=== PATIENT | male | born 1955 | race African-American/Black ===

== ENCOUNTER 2016-05-03 12:18 | Inpatient (IN) | payer OTHER ==
[~2016-05-03] VITALS: Ht 160 cm; Wt 54.4 kg
[2016-05-03] VITALS (8 sets, daily range): BP systolic 94–128; BP diastolic 54–81
--- NOTE | 2016-05-03 12:53 | Emergency Room Report ---
History of Present Illness General Chief Complaint: Altered Level of Consciousness Source: Patient, EMS Present Illness HPI 60 YOM with IDDM presents with hyperglycemia, ?AMS BIBEMS. Accucheck is "HIGH" in ED. Patient denies chest pain, SOB, abd pain, fever/chills, urinary complaints. Allergies: Coded Allergies: No Known Allergies (Unverified , 06/25/14) Patient History Past Medical History: DM Past Surgical History: none Pertinent Family History: none Immunizations: UTD Reviewed Nursing Documentation: PMH: Agreed, PSxH: Agreed Nursing Documentation-PMH Hx Cardiac Problems: No Hx Hypertension: Yes Hx Pacemaker: No Hx Asthma: No Hx COPD: No Hx Diabetes: Yes Hx Cancer: No Hx Gastrointestinal Problems: No Hx Dialysis: No History Of Psychiatric Problem: No Hx Neurological Problems: No Hx Cerebrovascular Accident: Yes Hx Seizures: No Review of Systems All Other Systems: negative except mentioned in HPI Physical Exam Vital Signs Date Time Temp Pulse Resp B/P Pulse Ox O2 Delivery O2 Flow Rate FiO2 05/03/16 12:15 98.1 80 16 73/40 95 Room Air Sp02 EP Interpretation: reviewed, abnormal General Appearance: normal inspection, well appearing, no apparent distress, alert, GCS 15, non-toxic, cachetic Head: normocephalic, atraumatic Eyes: bilateral eye EOMI, bilateral eye PERRL ENT: normal ENT inspection, hearing grossly normal, normal voice Neck: normal inspection, full range of motion, supple, no bony tend Respiratory: normal inspection, chest non-tender, lungs clear, normal breath sounds, no rhonchi, no respiratory distress, no retraction, no accessory muscle use, no wheezing Cardiovascular #1: regular rate, rhythm, no edema Gastrointestinal: normal inspection, normal bowel sounds, non tender, soft, no guarding, no hernia Genitourinary: no CVA tenderness Musculoskeletal: normal inspection, back normal, normal range of motion, Rossy' s Sign negative Neurologic: normal inspection, alert, oriented x3, responsive, pecan picker III-XII nml as tested, speech normal Psychiatric: normal inspection, judgement/insight normal, mood/affect normal Skin: normal inspection, normal color, no rash Procedures Critical Care Time Critical Care Time CC time 40 minutes Care for a 60YOM with AMS, known IDDm Previous admissions for HYPOglycemia DDx includes ACS, infection, metabolic abnormality, toxic ingestion, polysubstance abuse, DKA Patient is oriented, no signs of trauma Comprehensive physical exam completed, atraumatic. Labs include toxicology and chem panel, CBC, EKG 12 lead and constant cardiac rhythm strip monitoring, IV established. Airway adequately maintained by patient upon arrival. EKG reveals NSR without QRS abnormalities. Tx includes Insulin gtt, multiple fluid boluses Physician spent 40 minutes of direct critical care time monitoring patient's respiratory, cardiac and neurological status, reassessment, review of imaging, labs and discussion with attending hospitalist for ICU admission Does not include procedures Medical Decision Making Medicare Attestation I Jessica Pierce MD hereby attest that the medical record entry for date of service, 03/01/16 accurately reflects signatures/notations that I made in my capacity as MD when I treated/diagnosed the above listed Medicare beneficiary. I attest that this information is true, accurate and complete to the best of my knowledge. I understand that any falsification, omission, or concealment of material fact may subject me to administrative, civil, or criminal liability. This patient warrants hospital admission for extreme of age and has a condition that cannot be treated as outpatient. Diagnostic Impression: Primary Impression: Altered level of consciousness Additional Impression: Hyperglycemia ER Course 60 YO M with ?AMS d/t hyperglycemia. VS notable for hypotension. Afebrile. DDx: HONK, DKA, hyperglycemia, sepsis, infection PLAN: IV access, IVF, Labs, possible insulin gtt, possible ICU admission Search for infection with CXR, UA Reassess EKG Diagnostic Results Rate: normal Rhythm: NSR ST Segments: no acute changes Rhythm Strip Diag. Results EP Interpretation: yes Rate: 75 Rhythm: NSR, no PVC's, no ectopy Chest X-Ray Diagnostic Results EP Interpretation: Yes Findings: no consolidation, no effusion, no pneumothorax, no acute cardiopulmonary disease Number of Views: 1 Reevaluation Time: 14:17 Last Vital Signs Date Time Temp Pulse Resp B/P Pulse Ox O2 Delivery O2 Flow Rate FiO2 05/03/16 12:15 98.1 80 16 73/40 95 Room Air Status: improved Reevaluation Impression Glucose: 1109, K 5.1, bicarb 15, serum Cre 4.4. AG 34 A: DKA Insulin gtt started in ED Additional fluid boluses given Abx given for empiric infection - unknown source at this time. UA neg for infection Endorsed to Dr Camargo for MICU at 215pm Disposition: ADMITTED INPATIENT Condition: Critical JESSICA PIERCE M.D. May 03, 2016 12:53
[2016-05-03 13:11] LABS: BASOPHILS % (AUTO) 0.3 % (0.0-2.0); LYMPHOCYTES % (AUTO) 10.4 % (20.0-45.0); MEAN CORPUSCULAR HEMOGLOBIN 29.7 PG (27.0-31.0); MEAN CORPUSCULAR HGB CONC 29.5 G/DL (32.0-36.0); MEAN CORPUSCULAR VOLUME 101 FL (80-99); MEAN PLATELET VOLUME 9.6 FL (6.5-10.1); MONOCYTES % (AUTO) 7.8 % (1.0-10.0); NEUTROPHILS % (AUTO) 81.5 % (45.0-75.0); PLATELET COUNT 217 K/UL (150-450); RED BLOOD COUNT 4.75 M/UL (4.70-6.10); RED CELL DISTRIBUTION WIDTH 12.9 % (11.6-14.8); WHITE BLOOD COUNT 16.9 K/UL (4.8-10.8)
[2016-05-03] MEDS ORDERED: Vancomycin 1 GM in NS 275 ML IVPB ONE (13:15)
[2016-05-03] MEDS ORDERED: Piperacillin/Tazobactam 3.375 GM in NS 110 ML IVPB ONE (13:15)
[2016-05-03] MEDS ORDERED: Vancomycin 1gm inj IVPB ONE (13:30)
[2016-05-03] MEDS ORDERED: Zosyn 3.375gm inj ONE (13:31)
[2016-05-03 14:02] LABS: PH,URINE 5 (4.5-8.0)
[2016-05-03 14:06] LABS: NITRITE,URINE NEGATIVE (NEGATIVE); PROTEIN,URINE 1+ (NEGATIVE)
[2016-05-03 14:07] LABS: LEUKOCYTE ESTERASE ,URINE NEGATIVE (NEGATIVE); UROBILINOGEN,URINE NORMAL MG/DL (0.0-1.0)
[2016-05-03 14:09] LABS: APPEARANCE,URINE SLIGHTLY CLOUDY; KETONES,URINE 1+ (NEGATIVE)
[2016-05-03 14:11] LABS: ALANINE AMINOTRANSFERASE 102 U/L (3-41); ALBUMIN/GLOBULIN RATIO 1.2 (1.0-2.7); ANION GAP 34 (5-15); ASPARTATE AMINO TRANSFERASE 75 U/L (5-40); CALCIUM 8.4 mg/dL (8.6-10.2); CARBON DIOXIDE 15 mEQ/L (20-30); CHLORIDE 88 mEQ/L (98-107); CREATININE 4.4 mg/dL (0.7-1.2); GLOMERULAR FILTRATION RATE 16.6 mL/min (>60); HEMOLYSIS 2; MAGNESIUM 2.9 mg/dL (1.7-2.5); POTASSIUM 5.1 mEQ/L (3.4-4.9); SODIUM 137 mEQ/L (135-145); TOTAL PROTEIN 6.6 g/dL (6.6-8.7)
[2016-05-03 14:12] LABS: AMORPHOUS SEDIMENT,UR FEW /LPF; BACTERIA,URINE FEW /HPF; RBC,URINE 0-2 /HPF (0 - 0); SQUAMOUS EPITHELIAL CELL,UR OCCASIONAL /LPF (NONE/OCC); WBC,URINE 0-2 /HPF (0 - 0)
[2016-05-03 14:45] LABS: LIPASE 1230 U/L (< 60)
[2016-05-03] MEDS ORDERED: Lidocaine 1% 10mg/ml/Epi 0.005mg/ml 30ml vial INJ ONE (14:45)
[2016-05-03] MEDS ORDERED: Heparin Sod 1000 units/ml 10ml INJ ONE (14:45)
[2016-05-03] MEDS ORDERED: [UNRECOGNIZED DRUG - REMARK] MISC PRN (15:00)
[2016-05-03] MEDS ORDERED: DuoNeb 0.5-3(2.5)mg/3ml neb HHN PRN (15:00)
[2016-05-03] MEDS ORDERED: Morphine Sulfate 4mg/ml Inj IVP PRN (15:00)
[2016-05-03] MEDS ORDERED: LORazepam Inj 2mg/ml 1ml IV PRN (15:00)
[2016-05-03] MEDS ORDERED: Miralax 17gm pkt ORAL PRN (15:00)
[2016-05-03] MEDS ORDERED: Nitroglycerin Subl 0.4mg tab (Bottle Of 25) SL PRN (15:00)
[2016-05-03 15:25] LABS: ABG ALLEN TEST POSITIVE; ABG BASE EXCESS -13.8; ABG PCO2 42.1 mmHg (35.0-45.0)
[2016-05-03] MEDS ORDERED: Heparin 2000 units/Ns 1000ml IV ONE (16:00)
--- NOTE | 2016-05-03 16:47 | Diagnostic Imaging Report ---
Indication: PAIN, shortness of breath Technique: One view of the chest Comparison: none Findings: Lungs and pleural spaces are clear. Heart size is normal. There are mild degenerative spondylosis changes Impression: No acute process
--- NOTE | 2016-05-03 17:05 | Diagnostic Imaging Report ---
Indications: Needs long-term IV access Technique: Procedure performed at bedside. Ultrasound confirms patent compressible right basilic vein. Total sterile technique, including sterile probe cover and sterile gel, sterile gloves, hand hygiene, hat, mask,, sterile gown, large sterile drape, and preparation with 2% chlorhexidine utilized. Local anesthesia with 1% lidocaine. Under real-time ultrasound guidance, puncture basilic vein using 21-gauge needle, passage 0.018 guidewire, exchange for 5 Nigerian peel-away sheath. 5 Nigerian Bard dual-lumen power PICC cut to 41 cm. It was inserted through the peel-away sheath. Peel-away sheath and guidewire removed. Catheter fixed to the skin. Both catheter ports aspirated and flushed. Patient tolerated procedure well, without immediate complication. Followup chest x-ray obtained, documents catheter tip position at the deep in the right atrium. This will be corrected. Impression: Bedside placement of PICC under sonographic guidance, as described above. Tip too far into the right atrium. This will be corrected and the patient reimaged
[2016-05-03] MEDS: Heparin 5000 units/ml inj SUBQ SCH (21:00)
[2016-05-03] MEDS ORDERED: UNOBMED (23:41)
[2016-05-04] VITALS (24 sets, daily range): BP systolic 104–149; BP diastolic 70–92
[2016-05-04 00:05] LABS: CALCIUM 8.2 mg/dL (8.6-10.2); CREATININE 3.5 mg/dL (0.7-1.2); GLOMERULAR FILTRATION RATE 21.6 mL/min (>60); POTASSIUM 4.3 mEQ/L (3.4-4.9)
[2016-05-04 09:10] LABS: BASOPHILS % (AUTO) 0.8 % (0.0-2.0); LYMPHOCYTES % (AUTO) 11.3 % (20.0-45.0); MEAN CORPUSCULAR VOLUME 94 FL (80-99); MONOCYTES % (AUTO) 7.1 % (1.0-10.0); NEUTROPHILS % (AUTO) 80.8 % (45.0-75.0); PLATELET COUNT 140 K/UL (150-450); RED BLOOD COUNT 3.68 M/UL (4.70-6.10); WHITE BLOOD COUNT 17.8 K/UL (4.8-10.8)
--- NOTE | 2016-05-04 09:12 | History and Physical ---
History of Present Illness General Date patient seen: May 04, 2016 Reason for Hospitalization: Altered Level of Consciousness Present Illness HPI 60 year old male with hx of DM, HTN, CVA, Hep C was taken by paramedics to [facility] for ALOC. His BS was HIGH. Pt was diagnosed to have DKA and hyperosmolar coma and admitted to ICU on insulin drip. Allergies: Coded Allergies: No Known Allergies (Unverified , 06/25/14) Medication History Miscellaneous Medications Unable to Obtain Medications (Unable To Obtain Meds), (Reported) Patient History Healthcare decision maker self Resuscitation status Full Code Advanced Directive on File No Past Medical/Surgical History Past Medical/Surgical History: (1) Diabetes mellitus (2) History of CVA (cerebrovascular accident) (3) Hypertension Review of Systems All Other Systems: negative except mentioned in HPI Physical Exam General Appearance: WD/WN, no apparent distress Lines, tubes and drains: peripheral, central line HEENT: normocephalic, atraumatic Neck: non-tender, normal alignment Respiratory/Chest: chest wall non-tender, lungs clear Cardiovascular/Chest: normal peripheral pulses, normal rate Abdomen: normal bowel sounds, soft Genitourinary/Rectal: normal genital exam, heme negative stool Extremities: normal range of motion Last 24 Hour Vital Signs Date Time Temp Pulse Resp B/P Pulse Ox O2 Delivery O2 Flow Rate FiO2 05/04/16 08:00 98.0 98 22 140/79 98 Room Air 05/04/16 08:00 91 05/04/16 07:00 101 21 122/79 98 Room Air 05/04/16 06:00 103 21 126/83 98 Room Air 05/04/16 05:00 102 21 123/78 98 Room Air 05/04/16 04:00 106 21 121/78 98 Room Air 05/04/16 03:00 104 21 110/73 99 Room Air 05/04/16 02:00 105 21 106/72 99 Room Air 05/04/16 01:00 105 21 108/71 99 Room Air 05/04/16 00:00 98.0 108 22 104/78 100 Room Air 05/04/16 00:00 108 05/03/16 23:43 96.7 100 23 123/73 100 Room Air 05/03/16 22:38 100 23 123/73 100 Room Air 05/03/16 19:03 83 23 128/68 100 Room Air 05/03/16 17:23 96.7 78 26 105/65 100 Room Air 05/03/16 16:44 78 20 108/67 100 Room Air 05/03/16 15:16 92.7 73 19 100/81 100 Room Air 05/03/16 14:26 72 20 100/59 100 Room Air 05/03/16 13:06 97.4 72 16 94/54 98 Room Air 05/03/16 12:15 98.1 80 16 73/40 95 Room Air Intake and Output 05/03/16 05/04/16 19:00 07:00 Intake Total 2569 ml 900 ml Output Total 250 ml 630 ml Balance 2319 ml 270 ml Intake IV Total 2569 ml 900 ml Output Urine Total 250 ml 630 ml Laboratory Tests Test 05/03/16 12:30 05/03/16 12:55 05/03/16 14:53 05/03/16 23:35 Urine Color Yellow Urine Appearance Slightly cloudy Urine pH 5 (4.5-8.0) Urine Specific [place] 1.020 (1.005-1.035) Urine Protein 1+ (NEGATIVE) H Urine Glucose (UA) 4+ (NEGATIVE) H Urine Ketones 1+ (NEGATIVE) H Urine Occult Blood Negative (NEGATIVE) Urine Nitrite Negative (NEGATIVE) Urine Bilirubin Negative (NEGATIVE) Urine Urobilinogen Normal MG/DL (0.0-1.0) Urine Leukocyte Esterase Negative (NEGATIVE) Urine RBC 0-2 /HPF (0 - 0) H Urine WBC 0-2 /HPF (0 - 0) Urine Squamous Epithelial Cells Occasional /LPF Urine Amorphous Sediment Few /LPF (NONE) H Urine Bacteria Few /HPF (NONE) Urine Opiates Screen Negative (NEGATIVE) Urine Barbiturates Screen Negative (NEGATIVE) Phencyclidine (PCP) Screen Negative (NEGATIVE) Urine Amphetamines Screen Negative (NEGATIVE) Urine Benzodiazepines Screen Negative (NEGATIVE) Urine Cocaine Screen Positive (NEGATIVE) H Urine Marijuana (THC) Screen Negative (NEGATIVE) White Blood Count 16.9 K/UL (4.8-10.8) H Red Blood Count 4.75 M/UL (4.70-6.10) Hemoglobin 14.1 G/DL (14.2-18.0) L Hematocrit 47.8 % (42.0-52.0) Mean Corpuscular Volume 101 FL (80-99) H Mean Corpuscular Hemoglobin 29.7 PG (27.0-31.0) Mean Corpuscular Hemoglobin Concent 29.5 G/DL (32.0-36.0) L Red Cell Distribution Width 12.9 % (11.6-14.8) Platelet Count 217 K/UL (150-450) Mean Platelet Volume 9.6 FL (6.5-10.1) Neutrophils (%) (Auto) 81.5 % (45.0-75.0) H Lymphocytes (%) (Auto) 10.4 % (20.0-45.0) L Monocytes (%) (Auto) 7.8 % (1.0-10.0) Eosinophils (%) (Auto) 0.0 % (0.0-3.0) Basophils (%) (Auto) 0.3 % (0.0-2.0) Sodium Level 137 mEQ/L (135-145) 147 mEQ/L (135-145) #H Potassium Level 5.1 mEQ/L (3.4-4.9) H 4.3 mEQ/L (3.4-4.9) Chloride Level 88 mEQ/L (98-107) L 106 mEQ/L (98-107) Carbon Dioxide Level 15 mEQ/L (20-30) L 18 mEQ/L (20-30) L Anion Gap 34 (5-15) H 23 (5-15) H Blood Urea Nitrogen 90 mg/dL (7-23) H 84 mg/dL (7-23) H Creatinine 4.4 mg/dL (0.7-1.2) H 3.5 mg/dL (0.7-1.2) H Estimat Glomerular Filtration Rate 16.6 mL/min (>60) 21.6 mL/min (>60) Glucose Level 1109 mg/dL (74-106) *H 587 mg/dL (74-106) #*H Calcium Level 8.4 mg/dL (8.6-10.2) L 8.2 mg/dL (8.6-10.2) L Magnesium Level 2.9 mg/dL (1.7-2.5) H Total Bilirubin 0.6 mg/dL (0.0-1.2) Aspartate Amino Transf (AST/SGOT) 75 U/L (5-40) H Alanine Aminotransferase (ALT/SGPT) 102 U/L (3-41) H Alkaline Phosphatase 120 U/L (40-129) Total Protein 6.6 g/dL (6.6-8.7) Albumin 3.6 g/dL (3.5-5.2) Globulin 3.0 g/dL Albumin/Globulin Ratio 1.2 (1.0-2.7) Lipase 1230 U/L (< 60) H Acetone Level Positive-small (NEGATIVE) Arterial Blood pH 7.154 (7.350-7.450) Arterial Blood Partial Pressure CO2 42.1 mmHg (35.0-45.0) Arterial Blood Partial Pressure O2 107.8 mmHg (75.0-100.0) H Arterial Blood HCO3 14.5 mmol/L (22.0-26.0) L Arterial Blood Oxygen Saturation 96.6 % (92.0-98.0) Arterial Blood Base Excess -13.8 Ok Test Positive Test 05/04/16 08:10 White Blood Count Pending Red Blood Count Pending Hemoglobin Pending Hematocrit Pending Mean Corpuscular Volume Pending Mean Corpuscular Hemoglobin Pending Mean Corpuscular Hemoglobin Concent Pending Red Cell Distribution Width Pending Platelet Count Pending Mean Platelet Volume Pending Neutrophils (%) (Auto) Pending Lymphocytes (%) (Auto) Pending Monocytes (%) (Auto) Pending Eosinophils (%) (Auto) Pending Basophils (%) (Auto) Pending Sodium Level Pending Potassium Level Pending Chloride Level Pending Carbon Dioxide Level Pending Blood Urea Nitrogen Pending Creatinine Pending Estimat Glomerular Filtration Rate Pending Glucose Level Pending Lactic Acid Level Pending Calcium Level Pending Total Bilirubin Pending Aspartate Amino Transf (AST/SGOT) Pending Alanine Aminotransferase (ALT/SGPT) Pending Alkaline Phosphatase Pending Total Protein Pending Albumin Pending Globulin Pending Height (Feet): 5 Height (Inches): 3.00 Weight (Pounds): 120 Medications Current Medications Medications (Trade) Dose Ordered Sig/Canelo Route PRN Reason Start Time Stop Time Status Last Admin Dose Admin Acetaminophen (Tylenol) 650 mg Q4H PRN ORAL Fever 05/03/16 15:00 06/02/16 14:59 Albuterol/ Ipratropium 3 ml 3 ml Q4H PRN HHN Shortness of Breath 2/6/17 15:00 05/08/16 14:59 Dextrose (Dextrose 50%) PRN PRN IV HYPOGLYCEMIA 05/04/16 09:15 06/03/16 09:14 UNV Dextrose (Dextrose 50%) STAT PRN IV Hypoglycemia 05/03/16 15:00 06/02/16 14:59 05/04/16 08:24 Dextrose/Sodium Chloride 1,000 ml @ 100 mls/hr Q10H IV 05/04/16 10:00 06/03/16 09:59 Heparin Sodium (Porcine) (Heparin 5000 units/ml) 5,000 units EVERY 12 HOURS SUBQ 05/03/16 21:00 06/02/16 20:59 Insulin Human Regular (NovoLIN R) 5 units PRN PRN IV BS 200-299 05/03/16 15:00 06/02/16 14:59 Insulin Human Regular (NovoLIN R) 5 units PRN PRN IV BS 200-299 05/04/16 09:15 06/03/16 09:14 UNV Insulin Human Regular (NovoLIN R) 10 units PRN PRN IV BS=>300 05/03/16 15:00 06/02/16 14:59 Insulin Human Regular (NovoLIN R) 10 units PRN PRN IV BS=>300 05/04/16 09:15 06/03/16 09:14 UNV Insulin Human Regular 100 units/ Sodium Chloride 101 ml @ 0 mls/hr Q24H IV 05/04/16 01:48 06/03/16 01:47 Insulin Human Regular/Sodium Chloride (NovoLIN R/ Sodium Chloride) 101 ml @ 0 mls/hr Q24H IV 05/04/16 09:15 06/03/16 09:14 UNV Lorazepam (Ativan 2mg/ml 1ml) 2 mg Q2H PRN IV agitation 05/03/16 15:00 05/10/16 14:59 Miscellaneous Medication (Insulin Rate Change) 1 ea PRN PRN MISC BLOOD SUGAR 05/03/16 15:00 06/02/16 14:59 Miscellaneous Medication (Insulin Rate Change) 1 ea PRN PRN MISC To Patient Comfort 05/04/16 09:15 06/03/16 09:14 UNV Morphine Sulfate (Morphine Sulfate) 4 mg Q4H PRN IVP Severe Pain (Pain Scale 7-10) 05/03/16 15:00 05/10/16 14:59 Nitroglycerin (Ntg) 0.4 mg Q5MIN X 3 DOSES PRN SL Prn Chest Pain 05/03/16 15:00 06/02/16 14:59 Ondansetron HCl (Zofran) 4 mg Q6H PRN IVP Nausea & Vomiting 05/03/16 15:00 06/02/16 14:59 Polyethylene Glycol (Miralax) 17 gm DAILYPRN PRN ORAL Constipation 05/03/16 15:00 06/02/16 14:59 Assessment/Plan Problem List: (1) DKA, type 1 ICD Codes: E10.10 - Type 1 diabetes mellitus with ketoacidosis without coma SNOMED: 73522289, 448086523 (2) Hyperosmolar coma ICD Codes: E11.01 - Type 2 diabetes mellitus with hyperosmolarity with coma SNOMED: 63004101, 969583327 (3) History of CVA (cerebrovascular accident) ICD Codes: Z86.73 - Personal history of transient ischemic attack (TIA), and cerebral infarction without residual deficits SNOMED: 698884220 (4) Hypertension ICD Codes: I10 - Essential (primary) hypertension SNOMED: 70921028 (5) Hepatitis C ICD Codes: B19.20 - Unspecified viral hepatitis C without hepatic coma SNOMED: 93008136 Assessment/Plan insulin drip IV fluids sliding scale check Phos and other electrolytes change IV to d5 1/2 NS when BS less than 250 dvt prophylaxis CANDIS EDWARDS May 04, 2016 09:12
[2016-05-04] MEDS ORDERED: Insulin Rate Change 1 Each MISC PRN (09:15)
[2016-05-04 09:33] LABS: ALBUMIN/GLOBULIN RATIO 1.1 (1.0-2.7); CREATININE 2.2 mg/dL (0.7-1.2); POTASSIUM 3.2 mEQ/L (3.4-4.9); TOTAL PROTEIN 4.2 g/dL (6.6-8.7)
[2016-05-04 09:44] LABS: CALCIUM 5.8 mg/dL (8.6-10.2)
--- NOTE | 2016-05-04 10:09 | Wound Care Consultation ---
Wound Assessment Wound Assessment #1: Wound Number: #1 Wound Present on Admission: Yes New Wound: No Status Change of Wound: No Wound Location Body Site Modif: mid Wound Location Body Site: sacral Wound Type: scar - full thickness scar tissue Veronique Test: Does not Veronique Wound Thickness: Full Thickness Wound Length: 1.5 Wound Width: 1.5 Wound Drainage Amount: None Wound Drainage Odor: None/Absent Tissue Surrounding Wound: Intact Wound General Appearance: Open to air Wound Assessment #2: Wound Number: #2 Wound Present on Admission: Yes New Wound: No Status Change of Wound: No Wound Location Body Site Modif: other - generalized body Wound Type: other - dry scaly skin Wound Drainage Amount: None Wound Drainage Odor: None/Absent Tissue Surrounding Wound: scaly dry Wound General Appearance: Open to air Wound Comment #1 Sacral full thickness scar tissue. #2 Generalized dry scaly skin to body extending to both lower extremities. Recommendation -Apply low air loss overlay -Turn and reposition. -Keep clean and dry. -Apply heel protectors. -Avoid shear and friction. -Optimize nutrition. -Keep skin moisturized. -Local wound care as ordered. -Assess and notify MD if any changes of condition are noted. SANYA GOLDEN May 04, 2016 10:09
[2016-05-04] MEDS: Heparin 5000 units/ml inj SUBQ SCH ×2 (10:15→20:05)
[2016-05-04] MEDS: D5 1/2NS 1,000 ML IV SCH ×2 (10:18→20:01)
--- NOTE | 2016-05-04 11:39 | Diagnostic Imaging Report ---
Indication: Status post PICC readjustment Technique: One view of the chest Comparison: none Findings: Improved and now optimal position of previously demonstrated PICC. There is some atelectasis at the right lung base. Lungs and pleural spaces are otherwise clear. Impression: Improved and now satisfactory position of PICC.
[2016-05-04 12:02] LABS: CREATININE 2.5 mg/dL (0.7-1.2); GLOMERULAR FILTRATION RATE 31.9 mL/min (>60); POTASSIUM 3.7 mEQ/L (3.4-4.9)
--- NOTE | 2016-05-04 12:40 | Diagnostic Imaging Report ---
Indication: Status post adjustment of PICC Technique: One view of the chest Comparison: One hour earlier Findings: Interim retraction of previously demonstrated PICC, tip still deep within the right atrium. The lungs and pleural spaces remain clear. Heart size is normal. Impression: PICC is still too deep, even after adjustment. Withdrawal another 5 cm is suggested. This agrees with the preliminary interpretation provided overnight by Dr. Beckford
--- NOTE | 2016-05-04 14:03 | Consultation ---
Consult Note Consult Note 60 YOM with IDDM presents with hyperglycemia, ?AMS BIBEMS. Accucheck is "HIGH" in ED. Patient denies chest pain, SOB, abd pain, fever/chills, urinary complaints. Assessment/Plan acute Renal failure- Likely pre renal mainly ? Underlying CKD due to diabetic nephropathy - DKA, type 1 - Hyperosmolar coma - History of CVA (cerebrovascular accident) - Hypertension - Hepatitis C Urine positive for Coccain plan: Insulin drip hydrate- monitor renal parameters and lytes- avoid nephrotoxics- per orders BHAVNA MARTINEZ May 04, 2016 14:03
[2016-05-04] MEDS: Insulin Rate Change 1 Each MISC PRN ×8 (16:32→23:43)
[2016-05-04 17:22] LABS: CALCIUM 8.5 mg/dL (8.6-10.2); CREATININE 2.5 mg/dL (0.7-1.2); GLOMERULAR FILTRATION RATE 31.9 mL/min (>60); POTASSIUM 3.7 mEQ/L (3.4-4.9)
[2016-05-05] VITALS (15 sets, daily range): BP systolic 106–157; BP diastolic 3–95
[2016-05-05] MEDS: Insulin Rate Change 1 Each MISC PRN ×7 (00:39→10:15)
[2016-05-05 06:00] LABS: BASOPHILS % (AUTO) 0.7 % (0.0-2.0); EOSINOPHILS % (AUTO) 0.3 % (0.0-3.0); LYMPHOCYTES % (AUTO) 17.1 % (20.0-45.0); MEAN CORPUSCULAR HEMOGLOBIN 30.1 PG (27.0-31.0); MEAN CORPUSCULAR HGB CONC 31.8 G/DL (32.0-36.0); MEAN CORPUSCULAR VOLUME 95 FL (80-99); MEAN PLATELET VOLUME 9.7 FL (6.5-10.1); MONOCYTES % (AUTO) 7.5 % (1.0-10.0); NEUTROPHILS % (AUTO) 74.5 % (45.0-75.0); PLATELET COUNT 116 K/UL (150-450); RED BLOOD COUNT 3.88 M/UL (4.70-6.10); RED CELL DISTRIBUTION WIDTH 12.2 % (11.6-14.8); WHITE BLOOD COUNT 15.4 K/UL (4.8-10.8)
[2016-05-05] MEDS: D5 1/2NS 1,000 ML IV SCH (06:15)
[2016-05-05 06:25] LABS: TROPONIN I < 0.30 ng/mL (<=0.30)
[2016-05-05 06:32] LABS: CALCIUM 8.3 mg/dL (8.6-10.2); CREATININE 1.9 mg/dL (0.7-1.2); GLOMERULAR FILTRATION RATE 43.8 mL/min (>60); MAGNESIUM 2.1 mg/dL (1.7-2.5); PHOSPHORUS 1.7 mg/dL (2.5-4.8); POTASSIUM 3.6 mEQ/L (3.4-4.9); TOTAL PROTEIN 5.4 g/dL (6.6-8.7)
[2016-05-05 07:58] LABS: CHOLESTEROL 91 mg/dL (< 200); CRP QUANT < 0.3 mg/dL (< 0.5); HEMOLYSIS 7; LDL CHOLESTEROL (CALC.) 42 mg/dL (60-99); URIC ACID 8.9 mg/dL (3.0-7.5)
[2016-05-05 08:08] LABS: THYROID STIMULATING HORMONE 0.825 uIU/mL (0.300-4.500)
[2016-05-05] MEDS: Heparin 5000 units/ml inj SUBQ SCH ×2 (08:20→21:00)
[2016-05-05] MEDS ORDERED: Potassium Phosphate 30 MM in NS 275 ML IV ONE (11:00)
--- NOTE | 2016-05-05 11:07 | Pulmonolgy Critical Care Note ---
Critical Care - Asmt/Plan Problems: (1) DKA, type 1 (2) Hyperosmolar coma (3) Hypertension (4) Hepatitis C Respiratory: monitor respiratory rate Cardiac: continue to monitor HR/BP Renal: F/U I&O, check electrolytes Infectious Disease: check cultures Gastrointestinal: continue feedings/current rate Endocrine: other - dc insulin drip. Pt go around 50 units of insulin in the last 24 hours. I will give half of if as long acting Levemir and the other half as sliding scale and make more adjustments if needed. Critical Care - Objective Last 24 Hour Vital Signs Date Time Temp Pulse Resp B/P Pulse Ox O2 Delivery O2 Flow Rate FiO2 05/05/16 10:00 82 18 144/87 98 Room Air 05/05/16 09:00 86 20 151/84 100 Room Air 05/05/16 08:00 97.8 88 15 153/87 100 Room Air 05/05/16 08:00 83 05/05/16 07:00 80 16 132/3 100 Room Air 05/05/16 06:00 81 16 122/80 100 Room Air 05/05/16 05:00 85 17 128/75 100 Room Air 05/05/16 04:00 97.2 81 18 133/80 100 Room Air 05/05/16 04:00 83 05/05/16 03:00 88 17 106/68 100 Room Air 05/05/16 02:00 86 18 123/73 100 Room Air 05/05/16 01:00 86 16 130/75 100 Room Air 05/05/16 00:00 97.1 89 18 123/68 100 Room Air 05/05/16 00:00 89 05/04/16 23:00 87 18 146/75 100 Room Air 05/04/16 22:00 84 18 118/70 100 Room Air 05/04/16 21:00 85 19 113/78 100 Room Air 05/04/16 20:00 98.0 97 19 142/82 97 Room Air 05/04/16 20:00 97 05/04/16 19:00 95 22 147/87 99 Room Air 05/04/16 18:00 96 22 143/81 98 Room Air 05/04/16 17:00 92 20 134/84 99 Room Air 05/04/16 16:00 96 05/04/16 16:00 98.1 93 20 120/78 97 Room Air 05/04/16 15:01 94 21 149/86 98 Room Air 05/04/16 14:00 99 21 146/87 98 Room Air 05/04/16 13:00 98 22 125/92 98 Room Air 05/04/16 12:00 98.0 98 22 135/78 98 Room Air 05/04/16 12:00 88 Status: awake, sedated Condition: critical HEENT: atraumatic Neck: full ROM Lungs: clear Heart: HR/BP stable, HR/BP unstable Abdomen: soft, non-tender, active bowel sounds Extremities: no C/C/E, edema Accucheck: 193 Critical Care - Subjective ROS Limited/Unobtainable: No ICU Day: 3 Condition: improving EKG Rhythm: Sinus Rhythm Fluids: d5 1/2 Ns Drips: Insulin drip I&O: Intake and Output 05/04/16 05/05/16 19:00 07:00 Intake Total 1615.3 ml 1415.10 ml Output Total 590 ml 800 ml Balance 1025.3 ml 615.10 ml Intake Oral 400 ml 200 ml IV Total 1215.3 ml 1215.10 ml Output Urine Total 590 ml 800 ml CXR: no change Labs: Laboratory Tests Test 05/04/16 11:30 05/04/16 16:00 05/05/16 05:00 Sodium Level 147 mEQ/L (135-145) H 157 mEQ/L (135-145) #H 155 mEQ/L (135-145) H Potassium Level 3.7 mEQ/L (3.4-4.9) 3.7 mEQ/L (3.4-4.9) 3.6 mEQ/L (3.4-4.9) Chloride Level 112 mEQ/L (98-107) H 121 mEQ/L (98-107) H 121 mEQ/L (98-107) H Carbon Dioxide Level 20 mEQ/L (20-30) 22 mEQ/L (20-30) 20 mEQ/L (20-30) Anion Gap 15 (5-15) 14 (5-15) 14 (5-15) Blood Urea Nitrogen 69 mg/dL (7-23) H 72 mg/dL (7-23) H 57 mg/dL (7-23) H Creatinine 2.5 mg/dL (0.7-1.2) H 2.5 mg/dL (0.7-1.2) H 1.9 mg/dL (0.7-1.2) H Estimat Glomerular Filtration Rate 31.9 mL/min (>60) 31.9 mL/min (>60) 43.8 mL/min (>60) Glucose Level 716 mg/dL (74-106) #*H 75 mg/dL (74-106) # 98 mg/dL (74-106) Calcium Level 7.0 mg/dL (8.6-10.2) #L 8.5 mg/dL (8.6-10.2) #L 8.3 mg/dL (8.6-10.2) L Phosphorus Level 1.2 mg/dL (2.5-4.8) L 1.7 mg/dL (2.5-4.8) L White Blood Count 15.4 K/UL (4.8-10.8) H Red Blood Count 3.88 M/UL (4.70-6.10) L Hemoglobin 11.7 G/DL (14.2-18.0) L Hematocrit 36.8 % (42.0-52.0) L Mean Corpuscular Volume 95 FL (80-99) Mean Corpuscular Hemoglobin 30.1 PG (27.0-31.0) Mean Corpuscular Hemoglobin Concent 31.8 G/DL (32.0-36.0) L Red Cell Distribution Width 12.2 % (11.6-14.8) Platelet Count 116 K/UL (150-450) L Mean Platelet Volume 9.7 FL (6.5-10.1) Neutrophils (%) (Auto) 74.5 % (45.0-75.0) Lymphocytes (%) (Auto) 17.1 % (20.0-45.0) L Monocytes (%) (Auto) 7.5 % (1.0-10.0) Eosinophils (%) (Auto) 0.3 % (0.0-3.0) Basophils (%) (Auto) 0.7 % (0.0-2.0) Uric Acid 8.9 mg/dL (3.0-7.5) H Magnesium Level 2.1 mg/dL (1.7-2.5) Total Bilirubin 0.4 mg/dL (0.0-1.2) Gamma Glutamyl Transpeptidase 92 U/L (8-61) H Aspartate Amino Transf (AST/SGOT) 115 U/L (5-40) H Alanine Aminotransferase (ALT/SGPT) 105 U/L (3-41) H Alkaline Phosphatase 98 U/L (40-129) Total Creatine Kinase 265 U/L (38-174) H Troponin I < 0.30 ng/mL (<=0.30) C-Reactive Protein, Quantitative < 0.3 mg/dL (< 0.5) Pro-B-Type Natriuretic Peptide 379 pg/mL (0-125) H Total Protein 5.4 g/dL (6.6-8.7) L Albumin 2.8 g/dL (3.5-5.2) L Globulin 2.6 g/dL Albumin/Globulin Ratio 1.0 (1.0-2.7) Triglycerides Level 95 mg/dL (< 150) Cholesterol Level 91 mg/dL (< 200) LDL Cholesterol 42 mg/dL (60-99) L HDL Cholesterol 30 mg/dL (> 60) Cholesterol/HDL Ratio 3.0 (3.3-4.4) L Lipase 267 U/L (< 60) H Thyroid Stimulating Hormone (TSH) 0.825 uIU/mL (0.300-4.500) CANDIS EDWARDS May 05, 2016 11:07
--- NOTE | 2016-05-05 11:22 | General Progress Note ---
Assessment/Plan Status: stable Status Narrative SCr improved Assessment/Plan status; acute Renal failure- Likely pre renal mainly ? Underlying CKD due to diabetic nephropathy - DKA, type 1 - Hyperosmolar coma - History of CVA (cerebrovascular accident) - Hypertension - Hepatitis C Urine positive for Coccain plan: Insulin drip hydrate- monitor renal parameters and lytes- avoid nephrotoxics- per orders Subjective ROS Limited/Unobtainable: No Constitutional: Reports: malaise Allergies: Coded Allergies: No Known Allergies (Unverified , 06/25/14) Objective Last 24 Hour Vital Signs Date Time Temp Pulse Resp B/P Pulse Ox O2 Delivery O2 Flow Rate FiO2 05/05/16 11:00 87 20 148/88 99 Room Air 05/05/16 10:00 82 18 144/87 98 Room Air 05/05/16 09:00 86 20 151/84 100 Room Air 05/05/16 08:00 97.8 88 15 153/87 100 Room Air 05/05/16 08:00 83 05/05/16 07:00 80 16 132/3 100 Room Air 05/05/16 06:00 81 16 122/80 100 Room Air 05/05/16 05:00 85 17 128/75 100 Room Air 05/05/16 04:00 97.2 81 18 133/80 100 Room Air 05/05/16 04:00 83 05/05/16 03:00 88 17 106/68 100 Room Air 05/05/16 02:00 86 18 123/73 100 Room Air 05/05/16 01:00 86 16 130/75 100 Room Air 05/05/16 00:00 97.1 89 18 123/68 100 Room Air 05/05/16 00:00 89 05/04/16 23:00 87 18 146/75 100 Room Air 05/04/16 22:00 84 18 118/70 100 Room Air 05/04/16 21:00 85 19 113/78 100 Room Air 05/04/16 20:00 98.0 97 19 142/82 97 Room Air 05/04/16 20:00 97 05/04/16 19:00 95 22 147/87 99 Room Air 05/04/16 18:00 96 22 143/81 98 Room Air 05/04/16 17:00 92 20 134/84 99 Room Air 05/04/16 16:00 96 05/04/16 16:00 98.1 93 20 120/78 97 Room Air 05/04/16 15:01 94 21 149/86 98 Room Air 05/04/16 14:00 99 21 146/87 98 Room Air 05/04/16 13:00 98 22 125/92 98 Room Air 05/04/16 12:00 98.0 98 22 135/78 98 Room Air 05/04/16 12:00 88 Intake and Output 05/04/16 05/05/16 19:00 07:00 Intake Total 1615.3 ml 1415.10 ml Output Total 590 ml 800 ml Balance 1025.3 ml 615.10 ml Intake Oral 400 ml 200 ml IV Total 1215.3 ml 1215.10 ml Output Urine Total 590 ml 800 ml Laboratory Tests 05/04/16 11:30: Sodium Level 147H, Potassium Level 3.7, Chloride Level 112H, Carbon Dioxide Level 20, Anion Gap 15, Blood Urea Nitrogen 69H, Creatinine 2.5H, Estimat Glomerular Filtration Rate 31.9, Glucose Level 716#*H, Calcium Level 7.0#L 05/04/16 16:00: Sodium Level 157#H, Potassium Level 3.7, Chloride Level 121H, Carbon Dioxide Level 22, Anion Gap 14, Blood Urea Nitrogen 72H, Creatinine 2.5H, Estimat Glomerular Filtration Rate 31.9, Glucose Level 75#, Calcium Level 8.5#L, Phosphorus Level 1.2L 05/05/16 05:00: Sodium Level 155H, Potassium Level 3.6, Chloride Level 121H, Carbon Dioxide Level 20, Anion Gap 14, Blood Urea Nitrogen 57H, Creatinine 1.9H, Estimat Glomerular Filtration Rate 43.8, Glucose Level 98, Calcium Level 8.3L, Phosphorus Level 1.7L, White Blood Count 15.4H, Red Blood Count 3.88L, Hemoglobin 11.7L, Hematocrit 36.8L, Mean Corpuscular Volume 95, Mean Corpuscular Hemoglobin 30.1, Mean Corpuscular Hemoglobin Concent 31.8L, Red Cell Distribution Width 12.2, Platelet Count 116L, Mean Platelet Volume 9.7, Neutrophils (%) (Auto) 74.5, Lymphocytes (%) (Auto) 17.1L, Monocytes (%) (Auto) 7.5, Eosinophils (%) (Auto) 0.3, Basophils (%) (Auto) 0.7, Uric Acid 8.9H, Magnesium Level 2.1, Total Bilirubin 0.4, Gamma Glutamyl Transpeptidase 92H, Aspartate Amino Transf (AST/SGOT) 115H, Alanine Aminotransferase (ALT/SGPT) 105H , Alkaline Phosphatase 98, Total Creatine Kinase 265H, Troponin I < 0.30, C- Reactive Protein, Quantitative < 0.3, Pro-B-Type Natriuretic Peptide 379H, Total Protein 5.4L, Albumin 2.8L, Globulin 2.6, Albumin/Globulin Ratio 1.0, Triglycerides Level 95, Cholesterol Level 91, LDL Cholesterol 42L, HDL Cholesterol 30, Cholesterol/HDL Ratio 3.0L, Lipase 267H, Thyroid Stimulating Hormone (TSH) 0.825 Height (Feet): 5 Height (Inches): 3.00 Weight (Pounds): 120 General Appearance: no apparent distress Objective Physical exam not changed BHAVNA MARTINEZ May 05, 2016 11:22
[2016-05-05] MEDS: NovoLOG Insulin Flexpen SUBQ SCH ×3 (11:37→21:38)
[2016-05-05] MEDS: Levemir Flexpen SUBQ SCH ×2 (11:38→21:37)
[2016-05-05] MEDS ORDERED: Potassium Phosphate 30 MM in Sodium Chloride 550 ML IV ONE (12:00)
[2016-05-05] MEDS ORDERED: Nitroglycerin Subl 0.4mg tab (Bottle Of 25) SL PRN (12:15)
[2016-05-05] MEDS ORDERED: LORazepam Inj 2mg/ml 1ml IV PRN (13:00)
[2016-05-05] MEDS ORDERED: Morphine Sulfate 4mg/ml Inj IVP PRN (15:00)
[2016-05-05] MEDS ORDERED: Miralax 17gm pkt ORAL PRN (15:00)
[2016-05-05] MEDS ORDERED: DuoNeb 0.5-3(2.5)mg/3ml neb HHN PRN (15:00)
[2016-05-05] MEDS ORDERED: NovoLOG Insulin Flexpen SUBQ SCH (16:30)
[2016-05-05] MEDS ORDERED: Levemir Flexpen SUBQ SCH (21:00)
[2016-05-06 00:07] VITALS: BP 148/90
[2016-05-06 04:00] VITALS: BP 152/99
[2016-05-06] MEDS: NovoLOG Insulin Flexpen SUBQ SCH ×4 (05:56→21:27)
[2016-05-06 07:12] LABS: BASOPHILS % (AUTO) 1.1 % (0.0-2.0); EOSINOPHILS % (AUTO) 4.2 % (0.0-3.0); LYMPHOCYTES % (AUTO) 28.5 % (20.0-45.0); MEAN CORPUSCULAR HGB CONC 32.8 G/DL (32.0-36.0); MEAN CORPUSCULAR VOLUME 91 FL (80-99); MEAN PLATELET VOLUME 8.3 FL (6.5-10.1); MONOCYTES % (AUTO) 8.5 % (1.0-10.0); NEUTROPHILS % (AUTO) 57.7 % (45.0-75.0); PLATELET COUNT 104 K/UL (150-450); RED BLOOD COUNT 3.94 M/UL (4.70-6.10); WHITE BLOOD COUNT 8.7 K/UL (4.8-10.8)
[2016-05-06 07:22] LABS: ALANINE AMINOTRANSFERASE 88 U/L (3-41); ALBUMIN/GLOBULIN RATIO 0.9 (1.0-2.7); ANION GAP 9 (5-15); ASPARTATE AMINO TRANSFERASE 74 U/L (5-40); CALCIUM 8.6 mg/dL (8.6-10.2); CARBON DIOXIDE 24 mEQ/L (20-30); CHLORIDE 117 mEQ/L (98-107); CREATININE 1.3 mg/dL (0.7-1.2); GLOMERULAR FILTRATION RATE > 60 mL/min (>60); HEMOLYSIS 5; PHOSPHORUS 1.9 mg/dL (2.5-4.8); POTASSIUM 4.3 mEQ/L (3.4-4.9); SODIUM 150 mEQ/L (135-145); TOTAL PROTEIN 5.7 g/dL (6.6-8.7)
[2016-05-06 08:21] VITALS: BP 159/80
[2016-05-06] MEDS: Heparin 5000 units/ml inj SUBQ SCH ×2 (09:00→21:00)
[2016-05-06] MEDS: Levemir Flexpen SUBQ SCH ×2 (09:30→21:27)
[2016-05-06] MEDS: Phospha 250 Neutral tab ORAL SCH ×3 (10:29→17:14)
--- NOTE | 2016-05-06 10:36 | General Progress Note ---
Assessment/Plan Status: stable Assessment/Plan status; acute Renal failure- Likely pre renal mainly ? Underlying CKD due to diabetic nephropathy - DKA, type 1 - Hyperosmolar coma - History of CVA (cerebrovascular accident) - Hypertension - Hepatitis C Urine positive for Coccain plan: Phos supp. Insulin- hydrate- monitor renal parameters and lytes- avoid nephrotoxics- per orders Subjective ROS Limited/Unobtainable: No Constitutional: Reports: malaise Allergies: Coded Allergies: No Known Allergies (Unverified , 06/25/14) Objective Last 24 Hour Vital Signs Date Time Temp Pulse Resp B/P Pulse Ox O2 Delivery O2 Flow Rate FiO2 05/06/16 08:21 98.2 82 20 159/80 98 Room Air 05/06/16 07:10 81 18 Room Air 21 05/06/16 04:00 99.1 87 21 152/99 96 Room Air 05/06/16 00:07 98.2 82 19 148/90 97 Room Air 05/05/16 20:15 86 18 Room Air 21 05/05/16 20:00 97.9 93 20 157/95 93 Room Air 05/05/16 16:00 98.2 87 20 139/91 100 Room Air 05/05/16 12:00 97.9 78 18 144/86 100 Room Air 05/05/16 11:00 87 20 148/88 99 Room Air Intake and Output 05/05/16 05/06/16 19:00 07:00 Intake Total 905.4 ml 600 ml Output Total 670 ml 575 ml Balance 235.4 ml 25 ml Intake Oral 420 ml 600 ml IV Total 485.4 ml Output Urine Total 670 ml 575 ml Laboratory Tests 05/06/16 05:50: White Blood Count 8.7, Red Blood Count 3.94L, Hemoglobin 11.8L, Hematocrit 36.0L , Mean Corpuscular Volume 91, Mean Corpuscular Hemoglobin 30.0, Mean Corpuscular Hemoglobin Concent 32.8, Red Cell Distribution Width 12.0, Platelet Count 104L, Mean Platelet Volume 8.3, Neutrophils (%) (Auto) 57.7, Lymphocytes ( %) (Auto) 28.5, Monocytes (%) (Auto) 8.5, Eosinophils (%) (Auto) 4.2H, Basophils (%) (Auto) 1.1, Sodium Level 150H, Potassium Level 4.3, Chloride Level 117H, Carbon Dioxide Level 24, Anion Gap 9, Blood Urea Nitrogen 33H, Creatinine 1.3H, Estimat Glomerular Filtration Rate > 60, Glucose Level 160H, Calcium Level 8.6, Phosphorus Level 1.9L, Magnesium Level 2.0, Total Bilirubin 0.6, Aspartate Amino Transf (AST/SGOT) 74H, Alanine Aminotransferase (ALT/SGPT) 88H, Alkaline Phosphatase 105, Total Protein 5.7L, Albumin 2.8L, Globulin 2.9, Albumin/Globulin Ratio 0.9L Height (Feet): 5 Height (Inches): 3.00 Weight (Pounds): 120 General Appearance: no apparent distress Objective Physical exam not changed BHAVNA MARTINEZ May 06, 2016 10:36
[2016-05-06] MEDS ORDERED: Potassium Phosphate 30 MM in NS 275 ML IV ONE (11:00)
[2016-05-06 11:52] VITALS: BP 139/89
[2016-05-06 16:00] VITALS: BP 132/85
[2016-05-06 20:00] VITALS: BP 144/90
--- NOTE | 2016-05-06 23:27 | Pulmonology Progress Note ---
Assessment/Plan Problems: (1) DKA, type 1 (2) Hyperosmolar coma (3) History of CVA (cerebrovascular accident) (4) Hypertension (5) Hepatitis C Assessment/Plan Respiratory: monitor respiratory rate Cardiac: continue to monitor HR/BP Renal: F/U I&O, check electrolytes Infectious Disease: check cultures Gastrointestinal: continue feedings/current rate Endocrine: other - dc insulin drip. Pt go around 50 units of insulin in the last 24 hours. Subjective ROS Limited/Unobtainable: Yes Constitutional: Reports: anorexia, fatigue Gastrointestinal/Abdominal: Reports: nausea, vomiting Neurologic: Reports: confusion, weakness Allergies: Coded Allergies: No Known Allergies (Unverified , 06/25/14) Objective Last 24 Hour Vital Signs Date Time Temp Pulse Resp B/P Pulse Ox O2 Delivery O2 Flow Rate FiO2 05/06/16 20:00 98.9 80 20 144/90 94 Room Air 05/06/16 19:40 85 18 Room Air 21 05/06/16 16:00 98.1 75 20 132/85 100 Room Air 05/06/16 11:52 97.7 78 20 139/89 100 Room Air 05/06/16 08:21 98.2 82 20 159/80 98 Room Air 05/06/16 07:10 81 18 Room Air 21 05/06/16 04:00 99.1 87 21 152/99 96 Room Air 05/06/16 00:07 98.2 82 19 148/90 97 Room Air Intake and Output 05/05/16 05/06/16 19:00 07:00 Intake Total 905.4 ml 600 ml Output Total 670 ml 575 ml Balance 235.4 ml 25 ml Intake Oral 420 ml 600 ml IV Total 485.4 ml Output Urine Total 670 ml 575 ml General Appearance: no acute distress HEENT: normocephalic, atraumatic, anicteric, PERRL Respiratory/Chest: chest wall non-tender, decreased breath sounds, accessory muscle use Cardiovascular: normal peripheral pulses, normal rate, regular rhythm Abdomen: normal bowel sounds, soft, non tender, no organomegaly Genitourinary: normal external genitalia Extremities: no cyanosis Skin: no rash, no lesions Neurologic/Psychiatric: responsive, abnormal CN, motor weakness, disoriented Microbiology Date/Time Source Procedure Growth Status 05/03/16 23:39 Nasal Nares MRSA Culture - Final NO METHICILLIN RESISTANT STAPH AUREUS... Complete 05/03/16 23:39 Rectum VRE Culture - Final NO VANCOMYCIN RESISTANT ENTEROCOCCUS ... Complete Laboratory Tests 05/06/16 05:50: White Blood Count 8.7, Red Blood Count 3.94L, Hemoglobin 11.8L, Hematocrit 36.0L , Mean Corpuscular Volume 91, Mean Corpuscular Hemoglobin 30.0, Mean Corpuscular Hemoglobin Concent 32.8, Red Cell Distribution Width 12.0, Platelet Count 104L, Mean Platelet Volume 8.3, Neutrophils (%) (Auto) 57.7, Lymphocytes ( %) (Auto) 28.5, Monocytes (%) (Auto) 8.5, Eosinophils (%) (Auto) 4.2H, Basophils (%) (Auto) 1.1, Sodium Level 150H, Potassium Level 4.3, Chloride Level 117H, Carbon Dioxide Level 24, Anion Gap 9, Blood Urea Nitrogen 33H, Creatinine 1.3H, Estimat Glomerular Filtration Rate > 60, Glucose Level 160H, Calcium Level 8.6, Phosphorus Level 1.9L, Magnesium Level 2.0, Total Bilirubin 0.6, Aspartate Amino Transf (AST/SGOT) 74H, Alanine Aminotransferase (ALT/SGPT) 88H, Alkaline Phosphatase 105, Total Protein 5.7L, Albumin 2.8L, Globulin 2.9, Albumin/Globulin Ratio 0.9L Current Medications Medications (Trade) Dose Ordered Sig/Canelo Route PRN Reason Start Time Stop Time Status Last Admin Dose Admin Acetaminophen (Tylenol) 650 mg Q4H PRN ORAL Fever 05/05/16 15:00 06/04/16 14:59 Al Hydroxide/Mg Hydroxide (Mylanta) 30 ml Q6H PRN ORAL INDIGESTION 05/05/16 20:15 06/04/16 20:14 05/05/16 21:35 Albuterol/ Ipratropium (DuoNeb 0.5-3(2.5)mg/3ml) 3 ml Q4H PRN HHN Shortness of Breath 05/05/16 15:00 05/10/16 14:59 Dextrose (Dextrose 50%) STAT PRN IV Hypoglycemia 05/06/16 11:00 06/05/16 10:59 Heparin Sodium (Porcine) (Heparin 5000 units/ml) 5,000 units EVERY 12 HOURS SUBQ 05/05/16 21:00 06/04/16 20:59 Insulin Aspart (NovoLOG) BEFORE MEALS AND HS SUBQ 05/05/16 11:30 06/04/16 11:29 05/06/16 21:27 Insulin Detemir (Levemir) 12 units EVERY 12 HOURS SUBQ 05/05/16 12:00 06/04/16 11:59 05/06/16 21:27 Lorazepam (Ativan 2mg/ml 1ml) 2 mg Q2H PRN IV agitation 05/05/16 13:00 05/12/16 12:59 Morphine Sulfate (Morphine Sulfate) 4 mg Q4H PRN IVP Severe Pain (Pain Scale 7-10) 05/05/16 15:00 05/12/16 14:59 Nitroglycerin (Ntg) 0.4 mg Q5MIN X 3 DOSES PRN SL Prn Chest Pain 05/05/16 12:15 06/04/16 12:14 Ondansetron HCl (Zofran) 4 mg Q6H PRN IVP Nausea & Vomiting 05/05/16 15:00 06/04/16 14:59 Phosphorus (Phospha 250 Neutral) 500 mg THREE TIMES A DAY ORAL 05/06/16 10:00 06/05/16 09:59 05/06/16 17:14 Polyethylene Glycol (Miralax) 17 gm DAILYPRN PRN ORAL Constipation 05/05/16 15:00 06/04/16 14:59 CANDIS EDWARDS May 06, 2016 23:27
[2016-05-07] VITALS (7 sets, daily range): BP systolic 127–160; BP diastolic 79–90
[2016-05-07] MEDS: NovoLOG Insulin Flexpen SUBQ SCH ×4 (06:14→20:42)
[2016-05-07 07:48] LABS: ALANINE AMINOTRANSFERASE 103 U/L (3-41); ANION GAP 13 (5-15); ASPARTATE AMINO TRANSFERASE 120 U/L (5-40); CALCIUM 8.9 mg/dL (8.6-10.2); CARBON DIOXIDE 24 mEQ/L (20-30); CHLORIDE 114 mEQ/L (98-107); CREATININE 1.2 mg/dL (0.7-1.2); GLOMERULAR FILTRATION RATE > 60 mL/min (>60); HEMOLYSIS 4; INR 1.1 (0.9-1.1); MAGNESIUM 1.8 mg/dL (1.7-2.5); PHOSPHORUS 2.9 mg/dL (2.5-4.8); POTASSIUM 4.8 mEQ/L (3.4-4.9); PROTHROMBIN TIME 10.8 SEC (9.30-11.50); SODIUM 151 mEQ/L (135-145); TOTAL PROTEIN 5.9 g/dL (6.6-8.7)
[2016-05-07 07:59] LABS: EOSINOPHILS % (AUTO) 7.1 % (0.0-3.0); LYMPHOCYTES % (AUTO) 23.8 % (20.0-45.0); MEAN CORPUSCULAR HGB CONC 32.1 G/DL (32.0-36.0); MEAN CORPUSCULAR VOLUME 93 FL (80-99); MEAN PLATELET VOLUME 10.1 FL (6.5-10.1); MONOCYTES % (AUTO) 7.8 % (1.0-10.0); NEUTROPHILS % (AUTO) 60.4 % (45.0-75.0); PLATELET COUNT 106 K/UL (150-450); RED CELL DISTRIBUTION WIDTH 12.3 % (11.6-14.8); WHITE BLOOD COUNT 7.5 K/UL (4.8-10.8)
[2016-05-07] MEDS: Heparin 5000 units/ml inj SUBQ SCH ×2 (09:00→20:37)
[2016-05-07] MEDS: Phospha 250 Neutral tab ORAL SCH ×3 (09:40→16:59)
[2016-05-07] MEDS: Levemir Flexpen SUBQ SCH ×2 (09:42→20:42)
--- NOTE | 2016-05-07 15:01 | General Progress Note ---
Assessment/Plan Status: stable Status Narrative Cr WNL Assessment/Plan status; acute Renal failure- Likely pre renal IMPROVED- ? Underlying CKD due to diabetic nephropathy - DKA, type 1 - Hyperosmolar coma - History of CVA (cerebrovascular accident) - Hypertension - Hepatitis C Urine positive for Coccain plan: Phos supp. Insulin- hydrate- monitor renal parameters and lytes- avoid nephrotoxics- per orders Subjective ROS Limited/Unobtainable: No Constitutional: Reports: malaise Allergies: Coded Allergies: No Known Allergies (Unverified , 06/25/14) Objective Last 24 Hour Vital Signs Date Time Temp Pulse Resp B/P Pulse Ox O2 Delivery O2 Flow Rate FiO2 05/07/16 12:00 97.7 80 19 136/90 97 Room Air 05/07/16 08:00 98.4 88 19 142/86 98 Room Air 05/07/16 04:00 98.2 79 20 127/79 100 Room Air 05/07/16 00:00 98.1 88 18 138/89 98 Room Air 05/06/16 20:00 98.9 80 20 144/90 94 Room Air 05/06/16 19:40 85 18 Room Air 21 05/06/16 16:00 98.1 75 20 132/85 100 Room Air Intake and Output 05/06/16 05/07/16 19:00 07:00 Intake Total 760 ml 1020 ml Output Total 850 ml 1951 ml Balance -90 ml -931 ml Intake Oral 760 ml 1020 ml Output Urine Total 850 ml 1950 ml Stool Total 1 ml Laboratory Tests 05/07/16 05:30: White Blood Count 7.5, Red Blood Count 4.10L, Hemoglobin 12.3L, Hematocrit 38.3L , Mean Corpuscular Volume 93, Mean Corpuscular Hemoglobin 30.0, Mean Corpuscular Hemoglobin Concent 32.1, Red Cell Distribution Width 12.3, Platelet Count 106L, Mean Platelet Volume 10.1, Neutrophils (%) (Auto) 60.4, Lymphocytes (%) (Auto) 23.8, Monocytes (%) (Auto) 7.8, Eosinophils (%) (Auto) 7.1H, Basophils (%) (Auto) 1.0, Prothrombin Time 10.8, Prothromb Time International Ratio 1.1, Activated Partial Thromboplast Time 29, Sodium Level 151H, Potassium Level 4.8, Chloride Level 114H, Carbon Dioxide Level 24, Anion Gap 13, Blood Urea Nitrogen 28H, Creatinine 1.2, Estimat Glomerular Filtration Rate > 60, Glucose Level 256H, Calcium Level 8.9, Phosphorus Level 2.9, Magnesium Level 1.8 , Total Bilirubin 0.7, Aspartate Amino Transf (AST/SGOT) 120H, Alanine Aminotransferase (ALT/SGPT) 103H, Alkaline Phosphatase 117, Total Protein 5.9L, Albumin 3.0L, Globulin 2.9, Albumin/Globulin Ratio 1.0 Height (Feet): 5 Height (Inches): 3.00 Weight (Pounds): 120 General Appearance: no apparent distress Cardiovascular: regular rhythm Respiratory/Chest: decreased breath sounds Abdomen: soft Objective Physical exam not changed BHAVNA MARTINEZ May 07, 2016 15:01
[2016-05-07] MEDS ORDERED: D5 1/2NS 1000ml IV ONE (21:18)
[2016-05-07] MEDS ORDERED: D5NS 1000ml IV ONE (21:18)
[2016-05-08] VITALS (7 sets, daily range): BP systolic 118–158; BP diastolic 69–95
--- NOTE | 2016-05-08 00:02 | Pulmonology Progress Note ---
Assessment/Plan Problems: (1) DKA, type 1 (2) Hyperosmolar coma (3) History of CVA (cerebrovascular accident) (4) Hypertension (5) Hepatitis C Assessment/Plan Respiratory: monitor respiratory rate Cardiac: continue to monitor HR/BP Renal: F/U I&O, check electrolytes Infectious Disease: check cultures Gastrointestinal: continue feedings/current rate Endocrine: other - dc insulin drip. Pt go around 50 units of insulin in the last 24 hours. Subjective ROS Limited/Unobtainable: No Constitutional: Reports: anorexia, fatigue Gastrointestinal/Abdominal: Reports: bloating, nausea, vomiting Neurologic: Reports: confusion, weakness Allergies: Coded Allergies: No Known Allergies (Unverified , 06/25/14) Objective Last 24 Hour Vital Signs Date Time Temp Pulse Resp B/P Pulse Ox O2 Delivery O2 Flow Rate FiO2 05/07/16 20:15 97.2 84 20 140/87 98 Room Air 05/07/16 20:08 98.6 91 21 160/88 98 Room Air 05/07/16 19:00 87 16 Room Air 21 05/07/16 16:14 98.1 80 22 129/87 100 Room Air 05/07/16 12:00 97.7 80 19 136/90 97 Room Air 05/07/16 09:48 86 18 Room Air 21 05/07/16 08:00 98.4 88 19 142/86 98 Room Air 05/07/16 04:00 98.2 79 20 127/79 100 Room Air Intake and Output 05/07/16 05/08/16 19:00 07:00 Intake Total 680 ml 1075 ml Output Total 750 ml 800 ml Balance -70 ml 275 ml Intake Oral 680 ml 1075 ml Output Urine Total 750 ml 800 ml # Voids 1 # Bowel Movements 1 1 General Appearance: no acute distress HEENT: normocephalic, atraumatic, PERRL Respiratory/Chest: chest wall non-tender, decreased breath sounds, accessory muscle use Cardiovascular: normal peripheral pulses, normal rate, regular rhythm Abdomen: hypoactive bowel sounds, distended, guarding, tender, rebound tenderness, hernia, hepatomegaly Genitourinary: normal external genitalia Extremities: no cyanosis Skin: rash, lesions Neurologic/Psychiatric: responsive, abnormal CN, disoriented Laboratory Tests 05/07/16 05:30: White Blood Count 7.5, Red Blood Count 4.10L, Hemoglobin 12.3L, Hematocrit 38.3L , Mean Corpuscular Volume 93, Mean Corpuscular Hemoglobin 30.0, Mean Corpuscular Hemoglobin Concent 32.1, Red Cell Distribution Width 12.3, Platelet Count 106L, Mean Platelet Volume 10.1, Neutrophils (%) (Auto) 60.4, Lymphocytes (%) (Auto) 23.8, Monocytes (%) (Auto) 7.8, Eosinophils (%) (Auto) 7.1H, Basophils (%) (Auto) 1.0, Prothrombin Time 10.8, Prothromb Time International Ratio 1.1, Activated Partial Thromboplast Time 29, Sodium Level 151H, Potassium Level 4.8, Chloride Level 114H, Carbon Dioxide Level 24, Anion Gap 13, Blood Urea Nitrogen 28H, Creatinine 1.2, Estimat Glomerular Filtration Rate > 60, Glucose Level 256H, Calcium Level 8.9, Phosphorus Level 2.9, Magnesium Level 1.8 , Total Bilirubin 0.7, Aspartate Amino Transf (AST/SGOT) 120H, Alanine Aminotransferase (ALT/SGPT) 103H, Alkaline Phosphatase 117, Total Protein 5.9L, Albumin 3.0L, Globulin 2.9, Albumin/Globulin Ratio 1.0 Current Medications Medications (Trade) Dose Ordered Sig/Canelo Route PRN Reason Start Time Stop Time Status Last Admin Dose Admin Acetaminophen (Tylenol) 650 mg Q4H PRN ORAL Fever 05/05/16 15:00 06/04/16 14:59 Al Hydroxide/Mg Hydroxide (Mylanta) 30 ml Q6H PRN ORAL INDIGESTION 05/05/16 20:15 06/04/16 20:14 05/05/16 21:35 Albuterol/ Ipratropium (DuoNeb 0.5-3(2.5)mg/3ml) 3 ml Q4H PRN HHN Shortness of Breath 05/05/16 15:00 05/10/16 14:59 Dextrose (Dextrose 50%) STAT PRN IV Hypoglycemia 05/06/16 11:00 06/05/16 10:59 Heparin Sodium (Porcine) (Heparin 5000 units/ml) 5,000 units EVERY 12 HOURS SUBQ 05/05/16 21:00 06/04/16 20:59 Insulin Aspart (NovoLOG) BEFORE MEALS AND HS SUBQ 05/05/16 11:30 06/04/16 11:29 05/07/16 20:42 Insulin Detemir (Levemir) 12 units EVERY 12 HOURS SUBQ 05/05/16 12:00 06/04/16 11:59 05/07/16 20:42 Lorazepam (Ativan 2mg/ml 1ml) 2 mg Q2H PRN IV agitation 05/05/16 13:00 05/12/16 12:59 Morphine Sulfate (Morphine Sulfate) 4 mg Q4H PRN IVP Severe Pain (Pain Scale 7-10) 05/05/16 15:00 05/12/16 14:59 Nitroglycerin (Ntg) 0.4 mg Q5MIN X 3 DOSES PRN SL Prn Chest Pain 05/05/16 12:15 06/04/16 12:14 Ondansetron HCl (Zofran) 4 mg Q6H PRN IVP Nausea & Vomiting 05/05/16 15:00 06/04/16 14:59 Phosphorus (Phospha 250 Neutral) 500 mg BID ORAL 05/07/16 18:00 06/06/16 17:59 05/07/16 16:59 Polyethylene Glycol (Miralax) 17 gm DAILYPRN PRN ORAL Constipation 05/05/16 15:00 06/04/16 14:59 CANDIS EDWARDS May 08, 2016 00:02
[2016-05-08] MEDS: NovoLOG Insulin Flexpen SUBQ SCH ×4 (06:03→23:45)
[2016-05-08] MEDS: Heparin 5000 units/ml inj SUBQ SCH ×2 (09:00→21:00)
[2016-05-08] MEDS: Phospha 250 Neutral tab ORAL SCH ×2 (10:23→23:43)
[2016-05-08] MEDS: Levemir Flexpen SUBQ SCH ×2 (10:25→23:44)
--- NOTE | 2016-05-08 10:33 | General Progress Note ---
Assessment/Plan Status: doing well, stable Assessment/Plan status; acute Renal failure- Likely pre renal IMPROVED- ? Underlying CKD due to diabetic nephropathy - DKA, type 1 - Hyperosmolar coma - History of CVA (cerebrovascular accident) - Hypertension - Hepatitis C Urine positive for Coccain plan: Phos supp. as needed Insulin- hydrate- monitor renal parameters and lytes- avoid nephrotoxics- per orders ? DC planning Subjective ROS Limited/Unobtainable: No Constitutional: Reports: malaise, weakness Allergies: Coded Allergies: No Known Allergies (Unverified , 06/25/14) Objective Last 24 Hour Vital Signs Date Time Temp Pulse Resp B/P Pulse Ox O2 Delivery O2 Flow Rate FiO2 05/08/16 08:12 88 16 Room Air 21 05/08/16 08:01 98.2 85 20 124/82 99 Room Air 05/08/16 04:04 98.8 88 19 122/83 98 Room Air 05/08/16 04:00 98.8 85 19 122/83 98 Room Air 05/08/16 02:02 100.0 05/08/16 00:04 100.4 84 20 158/95 95 Room Air 05/07/16 20:15 97.2 84 20 140/87 98 Room Air 05/07/16 20:08 98.6 91 21 160/88 98 Room Air 05/07/16 19:00 87 16 Room Air 21 05/07/16 16:14 98.1 80 22 129/87 100 Room Air 05/07/16 12:00 97.7 80 19 136/90 97 Room Air Intake and Output 05/07/16 05/08/16 19:00 07:00 Intake Total 680 ml 1075 ml Output Total 750 ml 1600 ml Balance -70 ml -525 ml Intake Oral 680 ml 1075 ml Output Urine Total 750 ml 1600 ml # Voids 1 # Bowel Movements 1 1 Height (Feet): 5 Height (Inches): 3.00 Weight (Pounds): 120 General Appearance: no apparent distress Objective Physical exam not changed BHAVNA MARTINEZ May 08, 2016 10:33
[2016-05-08] MEDS ORDERED: NOVOLOG100 UNITS1 SUBQ (23:19)
[2016-05-08] MEDS ORDERED: LEVEMIR FL100 UNIT/1 SUBQ (23:19)
--- NOTE | 2016-05-08 23:20 | Pulmonology Progress Note ---
Assessment/Plan Problems: (1) DKA, type 1 (2) Hyperosmolar coma (3) History of CVA (cerebrovascular accident) (4) Hypertension (5) Hepatitis C Assessment/Plan Assessment/Plan insulin drip IV fluids sliding scale check Phos and other electrolytes change IV to d5 1/2 NS when BS less than 250 dvt prophylaxis Subjective ROS Limited/Unobtainable: Yes Constitutional: Reports: anorexia, fatigue Gastrointestinal/Abdominal: Reports: bloating, nausea Neurologic: Reports: confusion, weakness Allergies: Coded Allergies: No Known Allergies (Unverified , 06/25/14) Objective Last 24 Hour Vital Signs Date Time Temp Pulse Resp B/P Pulse Ox O2 Delivery O2 Flow Rate FiO2 05/08/16 19:55 98.2 94 20 121/85 98 Room Air 05/08/16 19:05 84 16 Room Air 05/08/16 16:00 98.2 88 20 118/69 99 Room Air 05/08/16 11:14 98.0 82 20 130/78 99 Room Air 05/08/16 10:53 98.0 05/08/16 08:12 88 16 Room Air 21 05/08/16 08:01 98.2 85 20 124/82 99 Room Air 05/08/16 04:04 98.8 88 19 122/83 98 Room Air 05/08/16 04:00 98.8 85 19 122/83 98 Room Air 05/08/16 02:02 100.0 05/08/16 00:04 100.4 84 20 158/95 95 Room Air Intake and Output 05/07/16 05/08/16 19:00 07:00 Intake Total 680 ml 1075 ml Output Total 750 ml 1600 ml Balance -70 ml -525 ml Intake Oral 680 ml 1075 ml Output Urine Total 750 ml 1600 ml # Voids 1 # Bowel Movements 1 1 General Appearance: no acute distress HEENT: normocephalic, atraumatic, PERRL Respiratory/Chest: chest wall non-tender, normal breath sounds, no respiratory distress Cardiovascular: normal peripheral pulses, normal rate, regular rhythm, no JVD Abdomen: hypoactive bowel sounds, distended, guarding, tender, rebound tenderness, mass, hepatomegaly Genitourinary: normal external genitalia Extremities: no cyanosis Skin: rash, lesions Neurologic/Psychiatric: responsive, motor weakness, disoriented Current Medications Medications (Trade) Dose Ordered Sig/Canelo Route PRN Reason Start Time Stop Time Status Last Admin Dose Admin Acetaminophen (Tylenol) 650 mg Q4H PRN ORAL Fever 05/05/16 15:00 06/04/16 14:59 05/08/16 01:03 Al Hydroxide/Mg Hydroxide (Mylanta) 30 ml Q6H PRN ORAL INDIGESTION 05/05/16 20:15 06/04/16 20:14 05/05/16 21:35 Albuterol/ Ipratropium (DuoNeb 0.5-3(2.5)mg/3ml) 3 ml Q4H PRN HHN Shortness of Breath 05/05/16 15:00 05/10/16 14:59 Dextrose (Dextrose 50%) STAT PRN IV Hypoglycemia 05/06/16 11:00 06/05/16 10:59 Heparin Sodium (Porcine) (Heparin 5000 units/ml) 5,000 units EVERY 12 HOURS SUBQ 05/05/16 21:00 06/04/16 20:59 Insulin Aspart (NovoLOG) BEFORE MEALS AND HS SUBQ 05/05/16 11:30 06/04/16 11:29 05/08/16 11:30 Insulin Detemir (Levemir) 12 units EVERY 12 HOURS SUBQ 05/05/16 12:00 06/04/16 11:59 05/08/16 10:25 Lorazepam (Ativan 2mg/ml 1ml) 2 mg Q2H PRN IV agitation 05/05/16 13:00 05/12/16 12:59 Morphine Sulfate (Morphine Sulfate) 4 mg Q4H PRN IVP Severe Pain (Pain Scale 7-10) 05/05/16 15:00 05/12/16 14:59 05/08/16 10:23 Nitroglycerin (Ntg) 0.4 mg Q5MIN X 3 DOSES PRN SL Prn Chest Pain 05/05/16 12:15 06/04/16 12:14 Ondansetron HCl (Zofran) 4 mg Q6H PRN IVP Nausea & Vomiting 05/05/16 15:00 06/04/16 14:59 Phosphorus (Phospha 250 Neutral) 500 mg BID ORAL 05/07/16 18:00 06/06/16 17:59 05/08/16 10:23 Polyethylene Glycol (Miralax) 17 gm DAILYPRN PRN ORAL Constipation 05/05/16 15:00 06/04/16 14:59 CANDIS EDWARDS May 08, 2016 23:20
[2016-05-09 00:01] VITALS: BP 123/83
[2016-05-09 04:01] VITALS: BP 119/75
[2016-05-09] MEDS: NovoLOG Insulin Flexpen SUBQ SCH ×3 (06:35→16:30)
[2016-05-09 08:00] VITALS: BP 123/89
[2016-05-09] MEDS: Levemir Flexpen SUBQ SCH (09:00)
[2016-05-09] MEDS: Heparin 5000 units/ml inj SUBQ SCH (09:00)
[2016-05-09] MEDS: Phospha 250 Neutral tab ORAL SCH ×2 (11:46→11:55)
--- NOTE | 2016-05-09 14:09 | General Progress Note ---
Assessment/Plan Status: stable Assessment/Plan status; acute Renal failure- Likely pre renal IMPROVED- ? Underlying CKD due to diabetic nephropathy - DKA, type 1 - Hyperosmolar coma - History of CVA (cerebrovascular accident) - Hypertension - Hepatitis C Urine positive for Coccain plan: no new labs Phos supp. as needed Insulin- hydrate- monitor renal parameters and lytes- avoid nephrotoxics- per orders ? DC planning Subjective ROS Limited/Unobtainable: No Allergies: Coded Allergies: No Known Allergies (Unverified , 06/25/14) Objective Last 24 Hour Vital Signs Date Time Temp Pulse Resp B/P Pulse Ox O2 Delivery O2 Flow Rate FiO2 05/09/16 08:00 98.2 91 20 123/89 99 Room Air 05/09/16 07:50 94 16 Room Air 05/09/16 04:01 99.3 92 21 119/75 98 Room Air 05/09/16 00:01 99.1 93 20 123/83 99 Room Air 05/08/16 19:55 98.2 94 20 121/85 98 Room Air 05/08/16 19:05 84 16 Room Air 05/08/16 16:00 98.2 88 20 118/69 99 Room Air Intake and Output 05/08/16 05/09/16 19:00 07:00 Intake Total 720 ml 240 ml Output Total 1200 ml 1350 ml Balance -480 ml -1110 ml Intake Oral 720 ml 240 ml Output Urine Total 1200 ml 1350 ml Height (Feet): 5 Height (Inches): 3.00 Weight (Pounds): 120 General Appearance: no apparent distress Objective Physical exam not changed BHAVNA MARTINEZ May 09, 2016 14:09
--- NOTE | 2016-05-09 16:21 | Pulmonology Progress Note ---
Assessment/Plan Problems: (1) DKA, type 1 (2) Hyperosmolar coma (3) History of CVA (cerebrovascular accident) (4) Hypertension (5) Hepatitis C Assessment/Plan Plan insulin drip IV fluids sliding scale check Phos and other electrolytes change IV to d5 1/2 NS when BS less than 250 dvt prophylaxis Subjective ROS Limited/Unobtainable: Yes Constitutional: Reports: anorexia, fatigue Neurologic: Reports: confusion, weakness Allergies: Coded Allergies: No Known Allergies (Unverified , 06/25/14) Objective Last 24 Hour Vital Signs Date Time Temp Pulse Resp B/P Pulse Ox O2 Delivery O2 Flow Rate FiO2 05/09/16 08:00 98.2 91 20 123/89 99 Room Air 05/09/16 07:50 94 16 Room Air 05/09/16 04:01 99.3 92 21 119/75 98 Room Air 05/09/16 00:01 99.1 93 20 123/83 99 Room Air 05/08/16 19:55 98.2 94 20 121/85 98 Room Air 05/08/16 19:05 84 16 Room Air Intake and Output 05/08/16 05/09/16 19:00 07:00 Intake Total 720 ml 240 ml Output Total 1200 ml 1350 ml Balance -480 ml -1110 ml Intake Oral 720 ml 240 ml Output Urine Total 1200 ml 1350 ml General Appearance: no acute distress HEENT: normocephalic, atraumatic, PERRL Respiratory/Chest: chest wall non-tender, normal breath sounds, no respiratory distress Cardiovascular: normal peripheral pulses, normal rate, regular rhythm, no JVD Abdomen: normal bowel sounds, soft, non tender, no organomegaly, non distended Genitourinary: normal external genitalia Extremities: no cyanosis Skin: rash, lesions Neurologic/Psychiatric: responsive, abnormal CN, disoriented Current Medications Medications (Trade) Dose Ordered Sig/Canelo Route PRN Reason Start Time Stop Time Status Last Admin Dose Admin Acetaminophen (Tylenol) 650 mg Q4H PRN ORAL Fever 05/05/16 15:00 06/04/16 14:59 05/08/16 01:03 Al Hydroxide/Mg Hydroxide (Mylanta) 30 ml Q6H PRN ORAL INDIGESTION 05/05/16 20:15 06/04/16 20:14 05/05/16 21:35 Albuterol/ Ipratropium (DuoNeb 0.5-3(2.5)mg/3ml) 3 ml Q4H PRN HHN Shortness of Breath 05/05/16 15:00 05/10/16 14:59 Dextrose (Dextrose 50%) STAT PRN IV Hypoglycemia 05/06/16 11:00 06/05/16 10:59 Heparin Sodium (Porcine) (Heparin 5000 units/ml) 5,000 units EVERY 12 HOURS SUBQ 05/05/16 21:00 06/04/16 20:59 05/09/16 09:00 Insulin Aspart (NovoLOG) BEFORE MEALS AND HS SUBQ 05/05/16 11:30 06/04/16 11:29 05/09/16 11:48 Insulin Detemir (Levemir) 12 units EVERY 12 HOURS SUBQ 05/05/16 12:00 06/04/16 11:59 05/08/16 23:44 Lorazepam (Ativan 2mg/ml 1ml) 2 mg Q2H PRN IV agitation 05/05/16 13:00 05/12/16 12:59 Morphine Sulfate (Morphine Sulfate) 4 mg Q4H PRN IVP Severe Pain (Pain Scale 7-10) 05/05/16 15:00 05/12/16 14:59 05/08/16 10:23 Nitroglycerin (Ntg) 0.4 mg Q5MIN X 3 DOSES PRN SL Prn Chest Pain 05/05/16 12:15 06/04/16 12:14 Ondansetron HCl (Zofran) 4 mg Q6H PRN IVP Nausea & Vomiting 05/05/16 15:00 06/04/16 14:59 Phosphorus (Phospha 250 Neutral) 500 mg BID ORAL 05/07/16 18:00 06/06/16 17:59 05/09/16 11:46 Polyethylene Glycol (Miralax) 17 gm DAILYPRN PRN ORAL Constipation 05/05/16 15:00 06/04/16 14:59 CNADIS EDWARDS May 09, 2016 16:21
[2016-05-09] MEDS ORDERED: Pneumococcal Vaccine 25mcg/0.5ml IM ONE (19:00)
--- NOTE | 2016-05-11 08:05 | Discharge Summary ---
Discharge Summary Hospital Course Date of Admission May 03, 2016 at 13:30 Date of Discharge May 09, 2016 at 19:00 Admitting Diagnosis HYPERGLYCEMIA HPI Saurav Chang is a 60 year old male who was admitted on May 03, 2016 at 13:30 for Hyperglycemia Hospital Course dc summary dictated #[id number] Discharge Medications New Medications: Insulin Aspart (Novolog Flexpen) 100 Unit/1 Ml Insuln.pen 0 UNITS SUBQ BEFORE MEALS AND HS for 30 Days, EA Insulin Detemir (Levemir Flexpen) 100 Unit/1 Ml Insuln.pen 12 UNITS SUBQ EVERY 12 HOURS for 30 Days, EA Discharge Condition Upon Discharge: stable Discharge Disposition Patient was discharged to Home (01) Discharge Diagnoses: Discharge Instructions Discharge Instructions Special Instructions I have been assigned to complete a D/C Summary on this account. I was not involved in the patient management Gayle Ferreira NP (Vanchtein) May 11, 2016 08:05
--- NOTE | 2016-05-11 14:43 | Cardiology Report ---
APPROVED REPORT EKG Measurement Heart [id number] Normal sinus rhythm Prolonged QT Abnormal ECG
--- NOTE | 2016-05-12 00:39 | Discharge Summary 2 SIG ---
DATE OF ADMISSION: 05/03/2016 DATE OF DISCHARGE: 05/09/2016 REASON FOR HOSPITALIZATION: 60-year-old male with insulin-dependent diabetes mellitus, presented to the emergency room with hyperglycemia, blood sugar was 1109 . The patient presented with altered mental status. The patient denied chest pain, shortness of breath, abdominal pain, fever, chills, or urinary complaints. Lab work revealed leukocytosis of 16.9. ABG indicated metabolic acidosis. Chemistry revealed blood sugar of 1109, anion gap of 34, and lipase of 1230. Chemistry revealed evidence of acute renal failure with BUN of 19 and creatinine of 4.4. Urine showed acetone. EKG demonstrated normal sinus rhythm. No acute ischemic changes. Chest x-ray was negative for any acute cardiopulmonary disease. Urinalysis was negative for infection. In the emergency department, the patient started on the IV fluids, insulin drip, given empiric antibiotics for possible infection due to leukocytosis and transferred to ICU for further management. The patient presented with evidence of acute renal failure with ADMITTING DIAGNOSES: 1. Acute encephalopathy. 2. Diabetic ketoacidosis. 3. Insulin dependent diabetes mellitus. 4. Acute renal failure. 5. Elevated liver function test. HOSPITAL STAY: The patient initially was in ICU on insulin drip and IV fluids. Blood sugar was closely monitored and insulin drip was adjusted as per protocol . Insulin drip was discontinued after anion gap closed. The patient started on long and short acting regimen of insulin. Watermelon Inspector consult requested due to the acute renal failure. Watermelon Inspector concluded that acute renal failure likely prerenal. cute renal failure resolved with IV hydration. BUN down to 28 and creatinine down to 1.2. Watermelon Inspector also concluded that the patient likely has an element of chronic renal insufficiency, likely diabetic nephropathy. He recommended to avoid nephrotoxic. Electrolyte imbalances was addressed and managed by the refinery operator assistant. Electrolytes were stable prior to discharge. Empiric antibiotics were discontinued. Leukocytosis resolved, likely reactive secondary to acute DKA. Mental status back to normal. Acute metabolic encephalopathy was likely secondary to DKA. Hemoglobin A1c - 11.2. The patient was counseled to comply with the medication regimen and need to follow up on a regular basis with a primary doctor to adjust anti glycemic medications. Blood pressure was stable during the admission, in fact initially was low. No need for antihypertensive medication during this admission. Noted elevated LFT, the patient with history of hepatitis C as well as alcohol abuse. LFT remained mildly elevated. The patient recommended to follow up with the upholstery restorer as outpatient for hepatitis C treatment. Urinalysis was positive for cocaine. The patient was counseled on abstinence from illicit street drugs as well as the abstinence from the alcohol. The patient was stable for discharge home. DISCHARGE MEDICATIONS: See medication reconciliation list. DISCHARGE DIAGNOSES: 1. Acute metabolic encephalopathy secondary to diabetic ketoacidosis, resolved. 2. Diabetic ketoacidosis. 3. Insulin-dependent diabetes mellitus, out of control. 4. Acute renal failure, likely prerenal, resolved - on chronic renal insufficiency (likely diabetic nephropathy). 5. History of hypertension. 6. History of cerebrovascular accident. 7. History of hepatitis C. 8. Elevated liver function test. 9. Electrolyte imbalances (potassium, calcium, phosphorus, and sodium). 10. Cocaine abuse. Of note, DISCHARGE INSTRUCTIONS: The patient discharged home. Follow up with the primary medical doctor. The patient need recommended to follow up with the primary medical doctor under regular basis to further optimize. Anti glycemic regimen as needed in order to achieve hemoglobin A1c at goal below 7. Meli Camargo M.D. I have been assigned to dictate discharge summary on this account and I was not involved in the patient's management. Gayle Asifnyc health + hospitalsChelita N.PAline DR: Courtney JOB#: [id number] CC: MONIKA
== END 2016-05-09 19:00 | disposition home or self-care (01) | DRG 420 ==
LOC: EDBD 12:18 → EMR 12:55 → ICU 13:30 → EDBEDREQSVC 14:16 → EMR 23:47 → 4W 05-05 11:55
DX: E10.11 Type 1 diabetes mellitus with ketoacidosis with coma (principal); G93.40 Encephalopathy, unspecified; N17.9 Acute kidney failure, unspecified; E10.21 Type 1 diabetes mellitus with diabetic nephropathy; B19.20 Unspecified viral hepatitis C without hepatic coma; E10.65 Type 1 diabetes mellitus with hyperglycemia; R79.89 Other specified abnormal findings of blood chemistry; E87.8 Other disorders of electrolyte and fluid balance, not elsewhere classified; F14.10 Cocaine abuse, uncomplicated; I12.9 Hypertensive chronic kidney disease with stage 1 through stage 4 chronic kidney disease, or unspecified chronic kidney disease; N18.9 Chronic kidney disease, unspecified; Z23 Encounter for immunization; Z79.4 Long term (current) use of insulin; Z86.73 Personal history of transient ischemic attack (TIA), and cerebral infarction without residual deficits
CPT/HCPCS: 36415; 36569; 36600; 71010; 76937; 80048; 80053; 80061; 80300; 81003; 82009; 82550; 82803; 82962; 82977; 83036; 83605; 83690; 83735; 83880; 84100; 84443; 84484; 84550; 85025; 85610; 85730; 86140; 87081; 90732; 93005; 94664; C9399; J1815; S5561

== ENCOUNTER 2016-06-30 17:41 | Inpatient (IN) | payer OTHER ==
[~2016-06-30] VITALS: Ht 167.6 cm; Wt 65.8 kg
[~2016-06-30 17:41] MED LIST: LEVEMIR FL100 UNIT/1 SUBQ; NOVOLOG100 UNITS1 SUBQ; UNOBMED
[2016-06-30 18:09] VITALS: BP 131/82
[2016-06-30 18:14] LABS: ABG PCO2 41.6 mmHg (35.0-45.0)
[2016-06-30 18:15] LABS: ABG ALLEN TEST POSITIVE; ABG BASE EXCESS -6.4
--- NOTE | 2016-06-30 18:30 | Emergency Room Report ---
History of Present Illness General Chief Complaint: Generalized Weakness Source: Patient Present Illness HPI 60 YOM BIBEMS for weakness, noted "critically high glucose" per EMS in the field. VS otherwise stable. Admission here in April 2016 for DKA. Allergies: Coded Allergies: No Known Allergies (Unverified , 06/25/14) Patient History Past Medical History: DM, HTN Past Surgical History: none Pertinent Family History: none Social History: Denies: alcohol use, drug use, smoking Immunizations: UTD Reviewed Nursing Documentation: PMH: Agreed, PSxH: Agreed Nursing Documentation-PMH Hx Cardiac Problems: Yes Hx Hypertension: Yes Hx Pacemaker: No Hx Asthma: No Hx COPD: No Hx Diabetes: Yes Hx Cancer: No Hx Gastrointestinal Problems: No Hx Dialysis: No Hx Neurological Problems: Yes Hx Cerebrovascular Accident: Yes Hx Seizures: No Review of Systems All Other Systems: negative except mentioned in HPI Physical Exam Vital Signs Date Time Temp Pulse Resp B/P Pulse Ox O2 Delivery O2 Flow Rate FiO2 06/30/16 17:40 97.5 110 16 110/91 97 Room Air Sp02 EP Interpretation: reviewed, normal General Appearance: normal inspection, well appearing, no apparent distress, alert, GCS 15, non-toxic, cachetic, other - Cachextic, weak looking, Chronically Ill Head: normocephalic, atraumatic Eyes: bilateral eye EOMI, bilateral eye PERRL ENT: normal ENT inspection, hearing grossly normal, normal voice Neck: normal inspection, full range of motion, supple, no bony tend Respiratory: normal inspection, lungs clear, normal breath sounds, no respiratory distress, no retraction, no wheezing Cardiovascular #1: regular rate, rhythm, no edema Gastrointestinal: normal inspection, normal bowel sounds, non tender, soft, no guarding, no hernia Genitourinary: no CVA tenderness Musculoskeletal: normal inspection, back normal, normal range of motion, Rossy' s Sign negative Neurologic: normal inspection, alert, oriented x3, responsive, long term care social worker III-XII nml as tested, motor strength/tone normal, speech normal Psychiatric: normal inspection, judgement/insight normal, mood/affect normal Skin: normal inspection, normal color, no rash Procedures Central Line Central Line : Consent: Emergent Central Line Lumen: triple Maximal Sterile Barrier Tech: yes cap, yes mask, yes sterile gown, yes sterile gloves, yes large sterile sheet, yes hand hygiene, yes chlorhexidine prep No Max Barrier Tech Because: emergency insertion Central Line Postion: internal jugular (R) Anesthesia: Lidocaine Complications: none Central Line Post Position: sutured, good blood return Attempts: One Patient Tolerated: Well Complications: None Medical Decision Making Diagnostic Impression: Primary Impression: Episode of generalized weakness Additional Impressions: Hyperglycemia Hyperkalemia SUDHAKAR (acute kidney injury) DKA (diabetic ketoacidoses) Qualified Codes: E13.10 - Other specified diabetes mellitus with ketoacidosis without coma ER Course Labs: K 7. AG 25. SerumCr 3.1 Glucose 1038. Augustin 10.6. Leuks 13k. Abg: ph 7.294. CO2 and PO2 normal. CXR: no PNA ECG sinus tachycardia Insulin gtt started Will give empiric Abx for infection Endorsed to Dr Camargo at 7pm for ICU bed. EKG Diagnostic Results Rhythm: NSR ST Segments: no acute changes ASA given to the pt in ED: No Rhythm Strip Diag. Results EP Interpretation: yes Rate: 110 Rhythm: NSR, no PVC's, no ectopy Chest X-Ray Diagnostic Results EP Interpretation: Yes Findings: no consolidation, no effusion, no pneumothorax, no acute cardiopulmonary disease Number of Views: 1 Last Vital Signs Date Time Temp Pulse Resp B/P Pulse Ox O2 Delivery O2 Flow Rate FiO2 06/30/16 18:09 97.5 115 16 131/82 97 Room Air Status: improved Disposition: ADMITTED INPATIENT Condition: Critical JESSICA PIERCE M.D. Jun 30, 2016 18:30
[2016-06-30 18:39] LABS: EOSINOPHILS % (AUTO) 0.4 % (0.0-3.0); LYMPHOCYTES % (AUTO) 12.8 % (20.0-45.0); MEAN CORPUSCULAR HEMOGLOBIN 29.1 PG (27.0-31.0); MEAN CORPUSCULAR HGB CONC 29.7 G/DL (32.0-36.0); MEAN CORPUSCULAR VOLUME 98 FL (80-99); MEAN PLATELET VOLUME 10.2 FL (6.5-10.1); NEUTROPHILS % (AUTO) 80.9 % (45.0-75.0); PLATELET COUNT 279 K/UL (150-450); RED BLOOD COUNT 5.55 M/UL (4.70-6.10); WHITE BLOOD COUNT 13.9 K/UL (4.8-10.8)
[2016-06-30 18:51] LABS: ALANINE AMINOTRANSFERASE 65 U/L (3-41); ANION GAP 25 (5-15); ASPARTATE AMINO TRANSFERASE 37 U/L (5-40); CALCIUM 10.6 mg/dL (8.6-10.2); CARBON DIOXIDE 21 mEQ/L (20-30); CHLORIDE 89 mEQ/L (98-107); CREATININE 3.1 mg/dL (0.7-1.2); GLOMERULAR FILTRATION RATE 24.8 mL/min (>60); HEMOLYSIS 5; MAGNESIUM 3.1 mg/dL (1.7-2.5); SODIUM 135 mEQ/L (135-145); TOTAL PROTEIN 9.2 g/dL (6.6-8.7)
[2016-06-30] MEDS ORDERED: DuoNeb 0.5-3(2.5)mg/3ml neb HHN PRN (19:00)
[2016-06-30] MEDS ORDERED: Miralax 17gm pkt ORAL PRN (19:00)
[2016-06-30] MEDS ORDERED: Nitroglycerin Subl 0.4mg tab (Bottle Of 25) SL PRN (19:00)
[2016-06-30] MEDS ORDERED: LORazepam Inj 2mg/ml 1ml IV PRN (19:00)
[2016-06-30] MEDS ORDERED: Morphine Sulfate 4mg/ml Inj IVP PRN (19:00)
[2016-06-30] MEDS ORDERED: Piperacillin/Tazobactam 3.375 GM in NS 110 ML IVPB ONE (19:30)
[2016-06-30] MEDS ORDERED: Vancomycin 1 GM in NS 275 ML IVPB ONE (19:30)
[2016-06-30] MEDS ORDERED: Vancomycin 1gm inj IVPB ONE (19:39)
[2016-06-30] MEDS ORDERED: Zosyn 3.375gm inj ONE (19:39)
[2016-06-30 20:14] VITALS: BP 108/78
[2016-06-30 20:45] VITALS: BP 156/87
[2016-06-30 21:03] VITALS: BP 133/83
[2016-06-30] MEDS: Heparin 5000 units/ml inj SUBQ SCH (21:32)
[2016-06-30 22:00] VITALS: BP 113/80
[2016-06-30] MEDS: Insulin Rate Change 1 Each MISC PRN (22:05)
[2016-06-30 23:00] VITALS: BP 113/76
[2016-07-01] VITALS (24 sets, daily range): BP systolic 75–157; BP diastolic 33–100
[2016-07-01] MEDS: Insulin Rate Change 1 Each MISC PRN ×16 (00:23→22:59)
[2016-07-01 05:13] LABS: BASOPHILS % (AUTO) 1.5 % (0.0-2.0); EOSINOPHILS % (AUTO) 0.7 % (0.0-3.0); LYMPHOCYTES % (AUTO) 12.2 % (20.0-45.0); MEAN CORPUSCULAR HEMOGLOBIN 29.7 PG (27.0-31.0); MEAN CORPUSCULAR HGB CONC 31.6 G/DL (32.0-36.0); MEAN CORPUSCULAR VOLUME 94 FL (80-99); MEAN PLATELET VOLUME 8.8 FL (6.5-10.1); MONOCYTES % (AUTO) 11.6 % (1.0-10.0); NEUTROPHILS % (AUTO) 73.9 % (45.0-75.0); PLATELET COUNT 260 K/UL (150-450); RED BLOOD COUNT 4.73 M/UL (4.70-6.10); RED CELL DISTRIBUTION WIDTH 12.7 % (11.6-14.8); WHITE BLOOD COUNT 17.5 K/UL (4.8-10.8)
[2016-07-01 05:15] LABS: INR 1.1 (0.9-1.1); PROTHROMBIN TIME 10.7 SEC (9.30-11.50)
[2016-07-01 05:24] LABS: PHOSPHORUS 2.9 mg/dL (2.5-4.8); TOTAL PROTEIN 7.5 g/dL (6.6-8.7)
[2016-07-01 05:28] LABS: CALCIUM 9.6 mg/dL (8.6-10.2); CREATININE 2.8 mg/dL (0.7-1.2); POTASSIUM 3.9 mEQ/L (3.4-4.9)
[2016-07-01 06:43] LABS: BILIRUBIN,DIRECT 0.2 mg/dL (0.1-0.3)
[2016-07-01] MEDS: Heparin 5000 units/ml inj SUBQ SCH ×2 (09:09→21:02)
--- NOTE | 2016-07-01 10:37 | History and Physical ---
History of Present Illness General Date patient seen: Jul 01, 2016 Reason for Hospitalization: Generalized Weakness Present Illness HPI 60 year old male with hx of DM, recurrent DKA, CVA, presented to ER with CC of increased weakness. He was diagnosed to have DKA and admitted to ICU with insulin drip. Allergies: Coded Allergies: No Known Allergies (Unverified , 06/25/14) Medication History Scheduled Insulin Aspart (Novolog Flexpen), 0 UNITS SUBQ BEFORE MEALS AND HS Insulin Detemir (Levemir Flexpen), 12 UNITS SUBQ EVERY 12 HOURS Miscellaneous Medications Unable to Obtain Medications (Unable To Obtain Meds), (Reported) Patient History Healthcare decision maker Resuscitation status Chemical (Meds Only) Advanced Directive on File Past Medical/Surgical History Past Medical/Surgical History: (1) Hepatitis C (2) History of CVA (cerebrovascular accident) (3) Hypertension Review of Systems All Other Systems: negative except mentioned in HPI Physical Exam General Appearance: WD/WN Lines, tubes and drains: peripheral, central line HEENT: normocephalic, atraumatic Neck: non-tender, normal alignment Respiratory/Chest: chest wall non-tender, lungs clear Cardiovascular/Chest: normal peripheral pulses, normal rate Genitourinary/Rectal: normal genital exam Extremities: normal range of motion Neurologic: wind commissioning technician II-XII grossly normal Lymphatic: anterior cervical Last 24 Hour Vital Signs Date Time Temp Pulse Resp B/P Pulse Ox O2 Delivery O2 Flow Rate FiO2 07/01/16 10:00 95 16 94/79 99 Room Air 07/01/16 09:00 95 17 126/85 100 Room Air 07/01/16 08:00 94 07/01/16 08:00 97.8 93 18 126/79 100 Room Air 07/01/16 07:53 92 16 Room Air 07/01/16 07:00 94 19 139/93 100 Room Air 07/01/16 06:00 91 19 125/77 100 Room Air 07/01/16 05:00 93 18 129/80 100 Room Air 07/01/16 04:00 97.9 93 18 119/72 100 Room Air 07/01/16 04:00 105 07/01/16 03:00 105 22 98/63 100 Room Air 07/01/16 02:00 104 22 75/47 100 Room Air 07/01/16 01:44 105 16 Room Air 07/01/16 01:00 101 21 79/33 98 Room Air 07/01/16 00:00 105 07/01/16 00:00 97.9 103 22 113/85 100 Room Air 06/30/16 23:00 105 16 113/76 100 Room Air 06/30/16 22:00 106 16 113/80 100 Room Air 06/30/16 21:07 108 06/30/16 21:03 97.6 108 16 133/83 100 Room Air 06/30/16 20:56 97.5 96 15 108/78 98 Room Air 06/30/16 20:45 97.6 105 18 156/87 100 Room Air 06/30/16 20:14 97.5 96 15 108/78 98 Room Air 06/30/16 18:09 97.5 115 16 131/82 97 Room Air 06/30/16 17:40 97.5 110 16 110/91 97 Room Air Intake and Output 06/30/16 07/01/16 19:00 07:00 Intake Total 1718.84 ml Output Total 350 ml Balance 1368.84 ml Intake Oral 0 ml IV Total 1718.84 ml Output Urine Total 350 ml # Bowel Movements 2 Laboratory Tests Test 06/30/16 17:56 06/30/16 18:17 07/01/16 04:09 Arterial Blood pH 7.294 (7.350-7.450) Arterial Blood Partial Pressure CO2 41.6 mmHg (35.0-45.0) Arterial Blood Partial Pressure O2 94.2 mmHg (75.0-100.0) Arterial Blood HCO3 19.7 mmol/L (22.0-26.0) L Arterial Blood Oxygen Saturation 96.6 % (92.0-98.0) Arterial Blood Base Excess -6.4 Ok Test Positive White Blood Count 13.9 K/UL (4.8-10.8) H 17.5 K/UL (4.8-10.8) H Red Blood Count 5.55 M/UL (4.70-6.10) 4.73 M/UL (4.70-6.10) Hemoglobin 16.2 G/DL (14.2-18.0) 14.0 G/DL (14.2-18.0) L Hematocrit 54.5 % (42.0-52.0) H 44.5 % (42.0-52.0) Mean Corpuscular Volume 98 FL (80-99) 94 FL (80-99) Mean Corpuscular Hemoglobin 29.1 PG (27.0-31.0) 29.7 PG (27.0-31.0) Mean Corpuscular Hemoglobin Concent 29.7 G/DL (32.0-36.0) L 31.6 G/DL (32.0-36.0) L Red Cell Distribution Width 13.0 % (11.6-14.8) 12.7 % (11.6-14.8) Platelet Count 279 K/UL (150-450) 260 K/UL (150-450) Mean Platelet Volume 10.2 FL (6.5-10.1) H 8.8 FL (6.5-10.1) Neutrophils (%) (Auto) 80.9 % (45.0-75.0) H 73.9 % (45.0-75.0) Lymphocytes (%) (Auto) 12.8 % (20.0-45.0) L 12.2 % (20.0-45.0) L Monocytes (%) (Auto) 5.0 % (1.0-10.0) 11.6 % (1.0-10.0) H Eosinophils (%) (Auto) 0.4 % (0.0-3.0) 0.7 % (0.0-3.0) Basophils (%) (Auto) 1.0 % (0.0-2.0) 1.5 % (0.0-2.0) Sodium Level 135 mEQ/L (135-145) 159 mEQ/L (135-145) #H Potassium Level 7.0 mEQ/L (3.4-4.9) *H 3.9 mEQ/L (3.4-4.9) Chloride Level 89 mEQ/L (98-107) L 120 mEQ/L (98-107) H Carbon Dioxide Level 21 mEQ/L (20-30) 23 mEQ/L (20-30) Anion Gap 25 (5-15) H 16 (5-15) H Blood Urea Nitrogen 85 mg/dL (7-23) H 79 mg/dL (7-23) H Creatinine 3.1 mg/dL (0.7-1.2) H 2.8 mg/dL (0.7-1.2) H Estimat Glomerular Filtration Rate 24.8 mL/min (>60) 28.0 mL/min (>60) Glucose Level 1038 mg/dL (74-106) *H 75 mg/dL (74-106) # Calcium Level 10.6 mg/dL (8.6-10.2) H 9.6 mg/dL (8.6-10.2) Magnesium Level 3.1 mg/dL (1.7-2.5) H Total Bilirubin 0.6 mg/dL (0.0-1.2) 0.5 mg/dL (0.0-1.2) Aspartate Amino Transf (AST/SGOT) 37 U/L (5-40) 28 U/L (5-40) Alanine Aminotransferase (ALT/SGPT) 65 U/L (3-41) H 47 U/L (3-41) H Alkaline Phosphatase 171 U/L (40-129) H 125 U/L (40-129) Total Protein 9.2 g/dL (6.6-8.7) H 7.5 g/dL (6.6-8.7) Albumin 4.6 g/dL (3.5-5.2) 3.8 g/dL (3.5-5.2) Globulin 4.6 g/dL Albumin/Globulin Ratio 1.0 (1.0-2.7) Acetone Level Positive-small (NEGATIVE) Prothrombin Time 10.7 SEC (9.30-11.50) Prothromb Time International Ratio 1.1 (0.9-1.1) Activated Partial Thromboplast Time 22 SEC (23-33) L Phosphorus Level 2.9 mg/dL (2.5-4.8) Direct Bilirubin 0.2 mg/dL (0.1-0.3) Height (Feet): 5 Height (Inches): 6.00 Weight (Pounds): 145 Medications Current Medications Medications (Trade) Dose Ordered Sig/Canelo Route PRN Reason Start Time Stop Time Status Last Admin Dose Admin Acetaminophen (Tylenol) 650 mg Q4H PRN ORAL Fever 06/30/16 19:00 07/30/16 18:59 Albuterol/ Ipratropium (DuoNeb 0.5-3(2.5)mg/3ml) 3 ml Q4H PRN HHN Shortness of Breath 06/30/16 19:00 07/05/16 18:59 Dextrose (Dextrose 50%) PRN PRN IV HYPOGLYCEMIA 07/01/16 04:00 07/31/16 03:59 07/01/16 06:12 Dextrose PRN PRN IV HYPOGLYCEMIA 07/01/16 07:00 07/31/16 06:59 Heparin Sodium (Porcine) (Heparin 5000 units/ml) 5,000 units EVERY 12 HOURS SUBQ 06/30/16 21:00 07/30/16 20:59 07/01/16 09:09 Insulin Human Regular (NovoLIN R) 5 units PRN PRN IV BS 200-299 07/01/16 04:00 07/31/16 03:59 Insulin Human Regular (NovoLIN R) 10 units PRN PRN IV BS=>300 07/01/16 04:00 07/31/16 03:59 Insulin Human Regular/Sodium Chloride (NovoLIN R/ Sodium Chloride) 101 ml @ 0 mls/hr Q24H IV 07/01/16 07:00 07/31/16 06:59 07/01/16 09:12 Lorazepam (Ativan 2mg/ml 1ml) 2 mg Q2H PRN IV agitation 06/30/16 19:00 07/07/16 18:59 Miscellaneous Medication (Insulin Rate Change) 1 ea PRN PRN MISC To Patient Comfort 06/30/16 19:00 07/30/16 18:59 07/01/16 10:22 Morphine Sulfate (Morphine Sulfate) 4 mg Q4H PRN IVP Severe Pain (Pain Scale 7-10) 06/30/16 19:00 07/07/16 18:59 Nitroglycerin (Ntg) 0.4 mg Q5MIN X 3 DOSES PRN SL Prn Chest Pain 06/30/16 19:00 07/30/16 18:59 Ondansetron HCl (Zofran) 4 mg Q6H PRN IVP Nausea & Vomiting 06/30/16 19:00 07/30/16 18:59 Polyethylene Glycol (Miralax) 17 gm DAILYPRN PRN ORAL Constipation 06/30/16 19:00 07/30/16 18:59 Sodium Chloride (Sodium Chloride 1000ml bag) 1,000 ml @ 150 mls/hr Q6H40M IV 06/30/16 19:30 07/30/16 19:29 07/01/16 04:16 Assessment/Plan Problem List: (1) DKA (diabetic ketoacidoses) ICD Codes: E13.10 - Other specified diabetes mellitus with ketoacidosis without coma SNOMED: 232693360, [id number] Qualifiers: Qualified Codes: E13.10 - Other specified diabetes mellitus with ketoacidosis without coma (2) Hepatitis C ICD Codes: B19.20 - Unspecified viral hepatitis C without hepatic coma SNOMED: 57151571 (3) Hyperglycemia ICD Codes: R73.9 - Hyperglycemia, unspecified SNOMED: 14520398 Assessment/Plan IV fluids IV insulin check electrolytes dvt prophylaxis dc insulin when anion gap closes. CANDIS EDWARDS Jul 01, 2016 10:37
[2016-07-01] MEDS ORDERED: Insulin Rate Change 1 Each MISC PRN ×2 (13:15→15:15)
--- NOTE | 2016-07-01 14:49 | Diagnostic Imaging Report ---
Indication: Status post central line placement Technique: One view of the chest Comparison: 1-1/2 hour earlier Findings: Interim placement of a right jugular central venous catheter, tip of which projects at the level of the high right atrium. The lungs and pleural spaces are clear. There is no gross pneumothorax. Heart size is normal. Surgical clips are seen in the right upper quadrant of the abdomen Impression: Satisfactory central venous catheter placement. No radiographically evident complication
--- NOTE | 2016-07-01 14:49 | Diagnostic Imaging Report ---
Indication: SOB Technique: One view of the chest Comparison: 05/04/2016 Findings: Previously demonstrated PICC is no longer evident. The lungs and pleural spaces are clear. Heart size is normal. Cholecystectomy clips are noted. There are degenerative thoracic spondylosis changes Impression: No acute process
--- NOTE | 2016-07-01 15:36 | Wound Care Consultation ---
Wound Assessment Wound Assessment #1: Wound Present on Admission: Yes New Wound: No Status Change of Wound: No Wound Location Body Site Modif: mid Wound Location Body Site: sacral Wound Type: pressure ulcer Veronique Test: Does not Veronique Pressure Ulcer Stage: IV/unstageable - resolving Wound Length: 2.5 Wound Width: 1.5 Wound Depth: utd Percent of Wound [place]/Red: 100 Wound Drainage Amount: None Wound Drainage Odor: None/Absent Tissue Surrounding Wound: scar tissue Wound General Appearance: Reddened Wound Assessment #2: Wound Number: #2 Wound Present on Admission: Yes New Wound: No Status Change of Wound: No Wound Location Body Site Modif: other - generalized Wound Type: rash Veronique Test: Does not Veronique Wound Drainage Amount: None Wound Drainage Odor: None/Absent Tissue Surrounding Wound: rash Wound Comment #1 Sacral Resolving stage Iv/unstageable pressure ulcer #2 Generalized rashes Recommendation -Local care as ordered for rash -Sacral Unstageable pressure ulcer Cleanse with saline, pat dry, apply skin barrier film, cover with Biatain silicone drg Q3rd day and PRN soiled/dislodged -Keep clean and dry -Turn and reposition -Optimize nutrition -Offload both heels -Low air loss overlay mattress -Assess and f/u accordingly for any changes SENDY GOMEZ RN Jul 01, 2016 15:36
--- NOTE | 2016-07-01 20:14 | Cardiology Report ---
APPROVED REPORT EKG Measurement Heart [id number] Sinus tachycardia Otherwise normal ECG
[2016-07-02] VITALS (17 sets, daily range): BP systolic 114–162; BP diastolic 25–93
[2016-07-02] MEDS: Insulin Rate Change 1 Each MISC PRN ×11 (00:04→11:12)
[2016-07-02 05:34] LABS: EOSINOPHILS % (AUTO) 4.8 % (0.0-3.0); MEAN CORPUSCULAR HEMOGLOBIN 29.9 PG (27.0-31.0); MEAN CORPUSCULAR HGB CONC 31.8 G/DL (32.0-36.0); MEAN CORPUSCULAR VOLUME 94 FL (80-99); MEAN PLATELET VOLUME 8.2 FL (6.5-10.1); MONOCYTES % (AUTO) 4.7 % (1.0-10.0); NEUTROPHILS % (AUTO) 67.5 % (45.0-75.0); PLATELET COUNT 195 K/UL (150-450); RED BLOOD COUNT 4.38 M/UL (4.70-6.10); WHITE BLOOD COUNT 12.5 K/UL (4.8-10.8)
[2016-07-02 06:01] LABS: ALANINE AMINOTRANSFERASE 48 U/L (3-41); ALBUMIN/GLOBULIN RATIO 0.9 (1.0-2.7); ANION GAP 14 (5-15); ASPARTATE AMINO TRANSFERASE 53 U/L (5-40); CALCIUM 9.3 mg/dL (8.6-10.2); CARBON DIOXIDE 22 mEQ/L (20-30); CHLORIDE 112 mEQ/L (98-107); CREATININE 1.4 mg/dL (0.7-1.2); GLOMERULAR FILTRATION RATE > 60 mL/min (>60); HEMOLYSIS 2; POTASSIUM 4.2 mEQ/L (3.4-4.9); SODIUM 148 mEQ/L (135-145); TOTAL PROTEIN 6.7 g/dL (6.6-8.7)
[2016-07-02 06:07] LABS: PHOSPHORUS 2.4 mg/dL (2.5-4.8)
[2016-07-02 06:13] LABS: PROTHROMBIN TIME 10.6 SEC (9.30-11.50)
[2016-07-02] MEDS: Heparin 5000 units/ml inj SUBQ SCH ×2 (09:10→20:42)
--- NOTE | 2016-07-02 11:36 | Pulmonolgy Critical Care Note ---
Critical Care - Asmt/Plan Problems: (1) History of CVA (cerebrovascular accident) (2) Hepatitis C (3) SUDHAKAR (acute kidney injury) (4) DKA (diabetic ketoacidoses) Respiratory: monitor respiratory rate Cardiac: continue to monitor HR/BP Renal: F/U I&O, other Infectious Disease: check cultures Gastrointestinal: continue feedings/current rate Endocrine: monitor blood sugar, continue sliding scale insulin Hematologic: monitor H/H, transfuse if hgb<8.5 Neurologic: PRN Ativan Prophylaxis: Protonix, Heparin Notes Reviewed: buzzle buffer Discussed with: nurses, consultants, correctional case managerreception centre manager - Objective Last 24 Hour Vital Signs Date Time Temp Pulse Resp B/P Pulse Ox O2 Delivery O2 Flow Rate FiO2 07/02/16 10:00 86 16 146/74 100 Room Air 07/02/16 09:00 92 17 147/88 99 Room Air 07/02/16 08:14 97 20 Room Air 07/02/16 08:00 96 07/02/16 08:00 98.0 94 17 152/70 99 Room Air 07/02/16 07:00 96 17 130/89 99 Room Air 07/02/16 06:00 96 17 154/79 99 Room Air 07/02/16 05:00 94 16 154/79 100 Room Air 07/02/16 04:00 97 07/02/16 04:00 98.1 98 17 147/93 100 Room Air 07/02/16 03:00 97 16 130/85 100 Room Air 07/02/16 02:00 95 16 143/82 100 Room Air 07/02/16 01:00 90 17 141/25 100 Room Air 07/02/16 00:00 98.8 99 17 162/88 100 Room Air 07/02/16 00:00 92 07/01/16 23:00 98 15 151/89 100 Room Air 07/01/16 22:00 95 15 131/88 100 Room Air 07/01/16 21:00 97.8 99 17 157/92 100 Room Air 07/01/16 20:00 97 07/01/16 20:00 96 15 144/89 100 Room Air 07/01/16 19:47 93 23 Room Air 07/01/16 19:00 103 14 149/96 100 Room Air 07/01/16 18:00 100 20 126/93 100 Room Air 07/01/16 17:00 98 16 140/97 100 Room Air 07/01/16 16:05 94 07/01/16 16:03 97.8 94 20 130/83 100 Room Air 07/01/16 15:00 97 17 132/86 99 Room Air 07/01/16 14:00 99 18 135/100 99 Room Air 07/01/16 13:00 99 17 130/84 99 Room Air 07/01/16 12:00 98 07/01/16 12:00 98.2 97 16 132/82 99 Room Air Status: awake, sedated Neck: full ROM Lungs: chest wall tender Heart: HR/BP unstable Abdomen: soft, active bowel sounds Extremities: no C/C/E Decubiti: location Accucheck: 173 Critical Care - Subjective ROS Limited/Unobtainable: No ICU Day: 3 Interval Events: eating, improving, still feeling weak. Condition: critical Sputum Amount: None I&O: Intake and Output 07/01/16 07/02/16 19:00 07:00 Intake Total 1623.3 ml 624.3 ml Output Total 650 ml 450 ml Balance 973.3 ml 174.3 ml Intake Oral 750 ml IV Total 873.3 ml 624.3 ml Output Urine Total 650 ml 450 ml # Voids 1 1 Labs: Laboratory Tests Test 07/02/16 04:05 White Blood Count 12.5 K/UL (4.8-10.8) H Red Blood Count 4.38 M/UL (4.70-6.10) L Hemoglobin 13.1 G/DL (14.2-18.0) L Hematocrit 41.2 % (42.0-52.0) L Mean Corpuscular Volume 94 FL (80-99) Mean Corpuscular Hemoglobin 29.9 PG (27.0-31.0) Mean Corpuscular Hemoglobin Concent 31.8 G/DL (32.0-36.0) L Red Cell Distribution Width 13.0 % (11.6-14.8) Platelet Count 195 K/UL (150-450) Mean Platelet Volume 8.2 FL (6.5-10.1) Neutrophils (%) (Auto) 67.5 % (45.0-75.0) Lymphocytes (%) (Auto) 22.0 % (20.0-45.0) Monocytes (%) (Auto) 4.7 % (1.0-10.0) Eosinophils (%) (Auto) 4.8 % (0.0-3.0) H Basophils (%) (Auto) 1.0 % (0.0-2.0) Prothrombin Time 10.6 SEC (9.30-11.50) Prothromb Time International Ratio 1.0 (0.9-1.1) Activated Partial Thromboplast Time 29 SEC (23-33) Sodium Level 148 mEQ/L (135-145) #H Potassium Level 4.2 mEQ/L (3.4-4.9) Chloride Level 112 mEQ/L (98-107) H Carbon Dioxide Level 22 mEQ/L (20-30) Anion Gap 14 (5-15) Blood Urea Nitrogen 49 mg/dL (7-23) #H Creatinine 1.4 mg/dL (0.7-1.2) H Estimat Glomerular Filtration Rate > 60 mL/min (>60) Glucose Level 134 mg/dL (74-106) H Calcium Level 9.3 mg/dL (8.6-10.2) Phosphorus Level 2.4 mg/dL (2.5-4.8) L Magnesium Level 2.0 mg/dL (1.7-2.5) Total Bilirubin 0.5 mg/dL (0.0-1.2) Aspartate Amino Transf (AST/SGOT) 53 U/L (5-40) H Alanine Aminotransferase (ALT/SGPT) 48 U/L (3-41) H Alkaline Phosphatase 126 U/L (40-129) Total Protein 6.7 g/dL (6.6-8.7) Albumin 3.3 g/dL (3.5-5.2) L Globulin 3.4 g/dL Albumin/Globulin Ratio 0.9 (1.0-2.7) L CANDIS EDWARDS Jul 02, 2016 11:36
--- NOTE | 2016-07-02 12:09 | Diagnostic Imaging Report ---
APPROVED REPORT CPT Code: 85659 Present Symptoms Comments: R/O DVT BILATERAL: Imaging reveals a patent deep venous system bilaterally. There is no evidence of thrombus within the femoral, popliteal or tibial segments. The greater saphenous veins are also within normal limits. Doppler indicates normal spontaneous flow within these segments. Incidental finding: Enlarged lymph node noted at the superficial femoral veins level, bilaterally.
[2016-07-02] MEDS ORDERED: NovoLOG Insulin Flexpen SUBQ SCH (13:00)
[2016-07-02] MEDS ORDERED: Sodium Phosphate 20 MM in NS 275 ML IV ONE (13:00)
[2016-07-02] MEDS ORDERED: Levemir Flexpen SUBQ SCH (13:00)
[2016-07-02] MEDS ORDERED: Nitroglycerin Subl 0.4mg tab (Bottle Of 25) SL PRN (14:45)
[2016-07-02] MEDS ORDERED: DuoNeb 0.5-3(2.5)mg/3ml neb HHN PRN (15:00)
[2016-07-02] MEDS ORDERED: Morphine Sulfate 4mg/ml Inj IVP PRN (15:00)
--- NOTE | 2016-07-02 15:16 | Diagnostic Imaging Report ---
Indication: DYSPNEA Technique: One view of the chest Comparison: none Findings: Linear band of atelectasis or scarring is seen in the left suprahilar region. Right jugular venous central venous catheter is again demonstrated. Lungs and pleural spaces are otherwise clear. Heart size is normal. Impression: No acute process. Findings as noted
[2016-07-02] MEDS ORDERED: Sodium Phosphate 20 MM in NS 275 ML IV SCH (15:30)
[2016-07-02] MEDS ORDERED: Miralax 17gm pkt ORAL PRN (15:30)
[2016-07-02] MEDS: NovoLOG Insulin Flexpen SUBQ SCH ×2 (17:23→20:43)
[2016-07-02] MEDS: Levemir Flexpen SUBQ SCH (20:43)
[2016-07-03] VITALS (8 sets, daily range): BP systolic 126–164; BP diastolic 83–102
[2016-07-03] MEDS: NovoLOG Insulin Flexpen SUBQ SCH ×3 (06:06→17:04)
[2016-07-03 07:21] LABS: BASOPHILS % (AUTO) 1.2 % (0.0-2.0); EOSINOPHILS % (AUTO) 9.2 % (0.0-3.0); LYMPHOCYTES % (AUTO) 33.5 % (20.0-45.0); MEAN CORPUSCULAR HEMOGLOBIN 28.5 PG (27.0-31.0); MEAN CORPUSCULAR HGB CONC 30.7 G/DL (32.0-36.0); MEAN CORPUSCULAR VOLUME 93 FL (80-99); MEAN PLATELET VOLUME 7.1 FL (6.5-10.1); MONOCYTES % (AUTO) 9.2 % (1.0-10.0); NEUTROPHILS % (AUTO) 46.9 % (45.0-75.0); PLATELET COUNT 141 K/UL (150-450); RED BLOOD COUNT 4.28 M/UL (4.70-6.10); RED CELL DISTRIBUTION WIDTH 12.4 % (11.6-14.8); WHITE BLOOD COUNT 6.4 K/UL (4.8-10.8)
[2016-07-03 07:37] LABS: ALANINE AMINOTRANSFERASE 63 U/L (3-41); ANION GAP 14 (5-15); ASPARTATE AMINO TRANSFERASE 97 U/L (5-40); CALCIUM 9.1 mg/dL (8.6-10.2); CARBON DIOXIDE 24 mEQ/L (20-30); CHLORIDE 104 mEQ/L (98-107); CREATININE 1.1 mg/dL (0.7-1.2); GLOMERULAR FILTRATION RATE > 60 mL/min (>60); HEMOLYSIS 3; MAGNESIUM 1.8 mg/dL (1.7-2.5); PHOSPHORUS 2.3 mg/dL (2.5-4.8); POTASSIUM 4.4 mEQ/L (3.4-4.9); SODIUM 142 mEQ/L (135-145); TOTAL PROTEIN 6.4 g/dL (6.6-8.7)
[2016-07-03] MEDS: Heparin 5000 units/ml inj SUBQ SCH (09:00)
[2016-07-03] MEDS: Levemir Flexpen SUBQ SCH (09:17)
--- NOTE | 2016-07-03 15:22 | Pulmonology Progress Note ---
Assessment/Plan Problems: (1) DKA (diabetic ketoacidoses) (2) Hepatitis C (3) Hyperglycemia Assessment/Plan DKA resolved blood sugar better controlled pt want to go home Subjective ROS Limited/Unobtainable: No Constitutional: Reports: no symptoms HEENT: Repors: no symptoms Allergies: Coded Allergies: No Known Allergies (Unverified , 06/25/14) Objective Last 24 Hour Vital Signs Date Time Temp Pulse Resp B/P Pulse Ox O2 Delivery O2 Flow Rate FiO2 07/03/16 11:38 99.2 97 20 154/102 98 Room Air 07/03/16 08:19 98.4 102 20 144/90 98 Room Air 07/03/16 07:55 94 20 Room Air 07/03/16 05:03 97.9 96 20 155/93 92 Room Air 07/03/16 04:00 97.9 96 20 155/93 92 Room Air 07/03/16 01:16 92 150/88 07/03/16 01:11 98.4 100 20 164/95 95 Room Air 07/03/16 00:00 98.4 100 20 164/95 95 Room Air 07/02/16 19:34 99.0 96 21 145/68 100 Room Air 07/02/16 19:30 90 20 Room Air 07/02/16 16:39 98.3 95 17 141/90 99 Room Air Intake and Output 07/02/16 07/03/16 18:59 06:59 Intake Total 1212.5 ml 743.8 ml Output Total 500 ml 700 ml Balance 712.5 ml 43.8 ml Intake Oral 660 ml 100 ml IV Total 552.5 ml 643.8 ml Output Urine Total 500 ml 700 ml # Voids 4 HEENT: normocephalic Respiratory/Chest: chest wall non-tender, lungs clear Cardiovascular: normal peripheral pulses, normal rate Abdomen: normal bowel sounds, soft, non tender Extremities: no cyanosis Neurologic/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 Complete 06/30/16 19:00 Rectum VRE Culture - Final NO VANCOMYCIN RESISTANT ENTEROCOCCUS ... Complete Laboratory Tests 07/03/16 04:00: White Blood Count 6.4, Red Blood Count 4.28L, Hemoglobin 12.2L, Hematocrit 39.7L , Mean Corpuscular Volume 93, Mean Corpuscular Hemoglobin 28.5, Mean Corpuscular Hemoglobin Concent 30.7L, Red Cell Distribution Width 12.4, Platelet Count 141L, Mean Platelet Volume 7.1, Neutrophils (%) (Auto) 46.9, Lymphocytes (%) (Auto) 33.5, Monocytes (%) (Auto) 9.2, Eosinophils (%) (Auto) 9.2H, Basophils (%) (Auto) 1.2, Sodium Level 142, Potassium Level 4.4, Chloride Level 104, Carbon Dioxide Level 24, Anion Gap 14, Blood Urea Nitrogen 24#H, Creatinine 1.1, Estimat Glomerular Filtration Rate > 60, Glucose Level 192H, Calcium Level 9.1, Phosphorus Level 2.3L, Magnesium Level 1.8, Total Bilirubin 0.5, Aspartate Amino Transf (AST/SGOT) 97H, Alanine Aminotransferase (ALT/SGPT) 63H, Alkaline Phosphatase 118, Total Protein 6.4L, Albumin 3.3L, Globulin 3.1, Albumin/Globulin Ratio 1.0 Current Medications Medications (Trade) Dose Ordered Sig/Canelo Route PRN Reason Start Time Stop Time Status Last Admin Dose Admin Acetaminophen (Tylenol) 650 mg Q4H PRN ORAL Fever 07/02/16 15:00 08/01/16 14:59 Albuterol/ Ipratropium (DuoNeb 0.5-3(2.5)mg/3ml) 3 ml Q4H PRN HHN Shortness of Breath 07/02/16 15:00 07/07/16 14:59 Dextrose (Dextrose 50%) PRN PRN IV HYPOGLYCEMIA 07/02/16 15:30 08/01/16 15:29 Heparin Sodium (Porcine) (Heparin 5000 units/ml) 5,000 units EVERY 12 HOURS SUBQ 07/02/16 21:00 08/01/16 20:59 07/02/16 20:42 Insulin Aspart (NovoLOG) BEFORE MEALS AND HS SUBQ 07/02/16 16:30 08/01/16 16:29 07/03/16 12:09 Insulin Detemir (Levemir) 12 units EVERY 12 HOURS SUBQ 07/02/16 21:00 08/01/16 20:59 07/03/16 09:17 Morphine Sulfate (Morphine Sulfate) 4 mg Q4H PRN IVP Severe Pain (Pain Scale 7-10) 07/02/16 15:00 07/09/16 14:59 Nitroglycerin (Ntg) 0.4 mg Q5MIN X 3 DOSES PRN SL Prn Chest Pain 07/02/16 14:45 08/01/16 14:44 Ondansetron HCl (Zofran) 4 mg Q6H PRN IVP Nausea & Vomiting 07/02/16 15:00 08/01/16 14:59 Polyethylene Glycol (Miralax) 17 gm DAILYPRN PRN ORAL Constipation 07/02/16 15:30 08/01/16 15:29 CANDIS EDWARDS Jul 03, 2016 15:21
--- NOTE | 2016-07-05 14:31 | Discharge Summary ---
Discharge Summary Hospital Course Date of Admission Jun 30, 2016 at 18:42 Date of Discharge Jul 03, 2016 at 18:00 Admitting Diagnosis DKA Reason for Hospitalization: Generalized Weakness WILLY Chang is a 60 year old male who was admitted on Jun 30, 2016 at 18:42 for Diabetic Ketoacidosis and BIB EMS for weakness, noted "critically high glucose" per EMS in the field. VS otherwise stable. Admission here in April 2016 for DKA. Past Medical History: DM, HTN Past Surgical History: none Pertinent Family History: none Social History: Denies: alcohol use, drug use, smoking Immunizations: UTD Reviewed Nursing Documentation: PMH: Agreed, PSxH: Agreed Nursing Documentation-PMH Hx Cardiac Problems: Yes Hx Hypertension: Yes Hx Pacemaker: No Hx Asthma: No Hx COPD: No Hx Diabetes: Yes Hx Cancer: No Hx Gastrointestinal Problems: No Hx Dialysis: No Hx Neurological Problems: Yes Hx Cerebrovascular Accident: Yes Hx Seizures: No Procedures Central Line : Consent: Emergent Central Line Lumen: triple Complications: None EKG Diagnostic Results Rhythm: NSR ST Segments: no acute changes ASA given to the pt in ED: No Rhythm Strip Diag. Results EP Interpretation: yes Rate: 110 Rhythm: NSR, no PVC's, no ectopy Chest X-Ray Diagnostic Results EP Interpretation: Yes Findings: no consolidation, no effusion, no pneumothorax, no acute cardiopulmonary disease Number of Views: 1 Hospital Course Diagnostic Impression: Primary Impression: Episode of generalized weakness Additional Impressions: Hyperglycemia Hyperkalemia SUDHAKAR (acute kidney injury) DKA (diabetic ketoacidoses) Qualified Codes: E13.10 - Other specified diabetes mellitus with ketoacidosis without coma ER Course Labs: K 7. AG 25. Serum Cr 3.1 Glucose 1038. Augustin 10.6. Leuks 13k. Abg: ph 7.294. CO2 and PO2 normal. CXR: no PNA ECG sinus tachycardia Insulin gtt started Will give empiric Abx for infection Patient admitted to ICU Initial Hospital Course Problem List: (1) DKA (diabetic ketoacidoses) ICD Codes: E13.10 - Other specified diabetes mellitus with ketoacidosis without coma SNOMED: 036435966, [id number] Qualifiers: Qualified Codes: E13.10 - Other specified diabetes mellitus with ketoacidosis without coma (2) Hepatitis C ICD Codes: B19.20 - Unspecified viral hepatitis C without hepatic coma SNOMED: 20267599 (3) Hyperglycemia ICD Codes: R73.9 - Hyperglycemia, unspecified SNOMED: 99540128 Assessment/Plan IV fluids IV insulin check electrolytes dvt prophylaxis dc insulin when anion gap closes. Wound Consultation Wound Assessment #1: Pressure Ulcer Stage: IV/unstageable - resolving Wound Assessment #2: Wound Present on Admission: Yes Wound Type: rash Wound Comment #1 Sacral Resolving stage Iv/unstageable pressure ulcer #2 Generalized rashes Recommendation -Local care as ordered for rash -Sacral Unstageable pressure ulcer Cleanse with saline, pat dry, apply skin barrier film, cover with Biatain silicone drg Q3rd day and PRN soiled/dislodged -Keep clean and dry -Turn and reposition -Optimize nutrition -Offload both heels -Low air loss overlay mattress -Assess and f/u accordingly for any changes Final Hospital Course Problems: (1) DKA (diabetic ketoacidoses) (2) Hepatitis C (3) Hyperglycemia Assessment/Plan DKA resolved blood sugar better controlled pt want to go home Discharge Medications Continued Medications: Insulin Aspart (Novolog Flexpen) 100 Unit/1 Ml Insuln.pen 0 UNITS SUBQ BEFORE MEALS AND HS for 30 Days, EA Insulin Detemir (Levemir Flexpen) 100 Unit/1 Ml Insuln.pen 12 UNITS SUBQ EVERY 12 HOURS for 30 Days, EA Discharge Condition Upon Discharge: stable Discharge Disposition Patient was discharged to Home (01) Discharge Diagnoses: (1) SIRS (systemic inflammatory response syndrome) (2) Diabetes mellitus (3) Hepatitis C (4) History of CVA (cerebrovascular accident) (5) DKA, type 1 (6) Hypertension (7) SUDHAKAR (acute kidney injury) (8) Hyperkalemia (9) Pressure ulcer Discharge Instructions Discharge Instructions Special Instructions DISCHARGE NURSE NOTES: PATIENT DISCHARGED, STABLE. PICKED UP BY FRIEND. RIGHT IJ TRIPLE LUMEN REMOVED. ID BAND REMOVED. SIGNED DISCHARGE PAPER AND BELONGINGS LIST. LEFT WITH BELONGINGS. I have been assigned to the discharge summary of this patient and did not provide any care for the patient. Charles Delong,Amisha Vicente N.P. Jul 05, 2016 14:31
== END 2016-07-03 18:00 | disposition home or self-care (01) | DRG 420 ==
LOC: EDBD 17:41 → EDBEDREQSVC 18:14 → EMR 18:40 → ICU 18:42 → EDBEDREQ 19:35 → 4W 07-02 14:50
PROC: 05HM33Z Insertion of Infusion Device into Right Internal Jugular Vein, Percutaneous Approach (ICD-10-PCS; principal; 2016-06-30)
DX: E10.10 Type 1 diabetes mellitus with ketoacidosis without coma (principal); N17.9 Acute kidney failure, unspecified; L89.150 Pressure ulcer of sacral region, unstageable; E87.5 Hyperkalemia; R65.10 Systemic inflammatory response syndrome (SIRS) of non-infectious origin without acute organ dysfunction; Z86.73 Personal history of transient ischemic attack (TIA), and cerebral infarction without residual deficits; B19.20 Unspecified viral hepatitis C without hepatic coma; I10 Essential (primary) hypertension; Z79.4 Long term (current) use of insulin
CPT/HCPCS: 36415; 36600; 71010; 80048; 80053; 80076; 82009; 82803; 82962; 83735; 84100; 85025; 85610; 85730; 87081; 93005; 93970; 94664; J1815; S5561

== ENCOUNTER 2017-12-09 12:09 | Emergency (ER) | payer OTHER ==
[~2017-12-09] VITALS: Ht 167.6 cm; Wt 68.0 kg
[2017-12-09 12:08] VITALS: BP 174/104
--- NOTE | 2017-12-09 12:26 | Emergency Room Report ---
History of Present Illness General Chief Complaint: Altered Level of Consciousness Source: EMS (Jacqueline Mendoza DO) Present Illness HPI Patient was brought in by paramedics with reports of change in mental status Reportedly the patient was at home and neighbors called the paramedics Patient himself is significantly altered Responding to physical stimuli Patient himself is nonverbal he does grimace to physical stimuli Unknown regarding any trauma acutely patient has obvious deformity to the nasal bone Again, the patient's history of present illness remains significantly limited (Jacqueline Mednoza DO) Allergies: Coded Allergies: No Known Allergies (Unverified , 06/25/14) UNABLE TO ASSESS (Unverified , 12/09/17) Patient History Limited by: medical condition Past Surgical History: unable to obtain Pertinent Family History: unable to obtain Reviewed Nursing Documentation: PMH: Agreed; PSxH: Agreed (Jacqueline Mendoza DO) Nursing Documentation-PMH Past Medical History: No History, Except For Hx Diabetes: Yes (Jacqueline Mendoza DO) Review of Systems All Other Systems: limited - Other than the ones mentioned in the history of present illness all others are reviewed however they do stay limited due to the patient's mental status (Jacqueline Mendoza DO) Physical Exam Vital Signs Date Time Temp Pulse Resp B/P (MAP) Pulse Ox O2 Delivery O2 Flow Rate FiO2 12/09/17 11:52 100.9 86 14 174/104 99 Room Air 100.9 Sp02 EP Interpretation: reviewed, normal General Appearance: mild distress - minimally responsive Head: normocephalic, other - facial trauma with nasal deviation uncertain acuity Eyes: bilateral eye PERRL ENT: dry mucus membranes Neck: supple Respiratory: lungs clear, normal breath sounds Cardiovascular #1: regular rate, rhythm, no edema Gastrointestinal: non tender, soft Musculoskeletal: other - Withdraws from physical stimuli Neurologic: other - decreased mentation to physical stimuli, no obvious respiratory distress Skin: normal color, no rash Lymphatic: no adenopathy (Jacqueline Mendoza DO) Medical Decision Making Diagnostic Impression: Primary Impression: Altered level of consciousness Additional Impressions: Hypoglycemia Rhabdomyolysis Drug abuse ER Course Patient was endorsed by Dr. Mendoza. The patient noted to have altered mental status and hypoglycemia. The patient history of diabetes. Patient noted to have some improvement in his mental status. Patient appeared to be still confused. The urine drug she was positive for cocaine. The patient showed some evidence of muscle breakdown on laboratory testing as well as old facial trauma on CT imaging.Dr. Acevedo was contacted for [facility] Labs Test 12/09/17 12:10 12/09/17 13:45 12/09/17 15:38 Urine Color Pale yellow Urine Appearance Slightly cloudy Urine pH 7 (4.5-8.0) Urine Specific [place] 1.010 (1.005-1.035) Urine Protein 3+ (NEGATIVE) Urine Glucose (UA) 4+ (NEGATIVE) Urine Ketones 3+ (NEGATIVE) Urine Blood 5+ (NEGATIVE) Urine Nitrite Negative (NEGATIVE) Urine Bilirubin Negative (NEGATIVE) Urine Urobilinogen 1 MG/DL (0.0-1.0) Urine Leukocyte Esterase Negative (NEGATIVE) Urine RBC 10-15 /HPF (0 - 0) Urine WBC 0-2 /HPF (0 - 0) Urine Squamous Epithelial Cells Occasional /LPF Urine Bacteria Few /HPF (NONE) Sodium Level 138 MMOL/L (136-145) Potassium Level 4.8 MMOL/L (3.5-5.1) Chloride Level 104 MMOL/L (98-107) Carbon Dioxide Level 22 MMOL/L (21-32) Anion Gap 12 mmol/L (5-15) Blood Urea Nitrogen 28 mg/dL (7-18) Creatinine 1.2 MG/DL (0.55-1.30) Estimat Glomerular Filtration Rate > 60 mL/min (>60) Glucose Level 116 MG/DL (74-106) Calcium Level 9.7 MG/DL (8.5-10.1) Total Bilirubin 0.7 MG/DL (0.2-1.0) Aspartate Amino Transf (AST/SGOT) 59 U/L (15-37) Alanine Aminotransferase (ALT/SGPT) 32 U/L (12-78) Alkaline Phosphatase 110 U/L (46-116) Total Creatine Kinase 1146 U/L (26-308) Creatine Kinase MB 9.1 NG/ML (0.0-3.6) Creatine Kinase MB Relative Index 0.7 Troponin I 0.048 ng/mL (0.000-0.056) Total Protein 8.6 G/DL (6.4-8.2) Albumin 4.2 G/DL (3.4-5.0) Globulin 4.4 g/dL Albumin/Globulin Ratio 1.0 (1.0-2.7) Lipase 52 U/L (73-393) Urine Opiates Screen Negative (NEGATIVE) Urine Barbiturates Screen Negative (NEGATIVE) Phencyclidine (PCP) Screen Negative (NEGATIVE) Urine Amphetamines Screen Negative (NEGATIVE) Urine Benzodiazepines Screen Negative (NEGATIVE) Urine Cocaine Screen Positive (NEGATIVE) Urine Marijuana (THC) Screen Negative (NEGATIVE) Serum Alcohol < 3 mg/dL White Blood Count 16.3 K/UL (4.8-10.8) Red Blood Count 5.43 M/UL (4.70-6.10) Hemoglobin 16.4 G/DL (14.2-18.0) Hematocrit 50.0 % (42.0-52.0) Mean Corpuscular Volume 92 FL (80-99) Mean Corpuscular Hemoglobin 30.2 PG (27.0-31.0) Mean Corpuscular Hemoglobin Concent 32.9 G/DL (32.0-36.0) Red Cell Distribution Width 12.3 % (11.6-14.8) Platelet Count 224 K/UL (150-450) Mean Platelet Volume 7.7 FL (6.5-10.1) Neutrophils (%) (Auto) % (45.0-75.0) Lymphocytes (%) (Auto) % (20.0-45.0) Monocytes (%) (Auto) % (1.0-10.0) Eosinophils (%) (Auto) % (0.0-3.0) Basophils (%) (Auto) % (0.0-2.0) Differential Total Cells Counted 100 Neutrophils % (Manual) 79 % (45-75) Lymphocytes % (Manual) 5 % (20-45) Monocytes % (Manual) 9 % (1-10) Eosinophils % (Manual) 0 % (0-3) Basophils % (Manual) 0 % (0-2) Band Neutrophils 7 % (0-8) Platelet Estimate Adequate Platelet Morphology Normal Red Blood Cell Morphology Normal (Artemio Moore MD) Last Vital Signs Date Time Temp Pulse Resp B/P (MAP) Pulse Ox O2 Delivery O2 Flow Rate FiO2 12/09/17 12:08 100.9 14 174/104 99 Room Air 100.9 12/09/17 11:52 86 (Jacqueline Mendoza DO) Status: improved (Artemio Moore MD) Disposition: HOME, SELF-CARE Condition: Stable Jacqueline Mendoza DO Dec 09, 2017 12:26 Artemio Moore MD Dec 09, 2017 15:47
[2017-12-09 12:40] LABS: BILIRUBIN, URINE NEGATIVE (NEGATIVE); COLOR,URINE PALE YELLOW; GLUCOSE, URINE (UA) 4+ (NEGATIVE); KETONES,URINE 3+ (NEGATIVE); LEUKOCYTE ESTERASE ,URINE NEGATIVE (NEGATIVE); NITRITE,URINE NEGATIVE (NEGATIVE); PH,URINE 7 (4.5-8.0); PROTEIN,URINE 3+ (NEGATIVE); UROBILINOGEN,URINE 1 MG/DL (0.0-1.0)
[2017-12-09 12:46] LABS: APPEARANCE,URINE SLIGHTLY CLOUDY
[2017-12-09 12:52] LABS: ANION GAP 12 mmol/L (5-15); BLOOD UREA NITROGEN 28 mg/dL (7-18); CALCIUM 9.7 MG/DL (8.5-10.1); CARBON DIOXIDE 22 MMOL/L (21-32); CHLORIDE 104 MMOL/L (98-107); CREATININE 1.2 MG/DL (0.55-1.30); POTASSIUM 4.8 MMOL/L (3.5-5.1); SODIUM 138 MMOL/L (136-145)
--- NOTE | 2017-12-09 13:03 | Diagnostic Imaging Report ---
Indications: Altered, trauma Technique: Spiral images obtained through the facial bones. No IV contrast utilized. Multiplanar reconstructions were generated.Total dose length product 605.63 mGycm. CTDIvol(s) 28.19 mGy. Dose reduction achieved using automated exposure control Comparison: none Findings: There is a comminuted depressed fracture deformity of the nasal bone. This extends slightly into the left medial orbital wall There is associated marked rightward nasal septal deviation. There is a slight deformity of the nasal spine of the maxilla. Absence of a discrete nasal septal fracture line, absence of sinus opacification as well as absence of overlying soft tissue swelling raises possibility that this is chronic, however. There is a fracture deformity of the left zygomatic arch which appears old. No other acute fractures. No dislocations. The patient is edentulous. The sinuses are clear.. The optic globes and retroseptal orbits are intact Impression: Nasal and nasal septal fracture deformity, as described. Age of this is indeterminate, but suspect old. Correlate with clinical findings Evidence of old left zygomatic arch fracture No other acute bony trauma The CT scanner at [facility] is accredited by the [employer] and the scans are performed using protocols designed to limit radiation exposure to as low as reasonably achievable to attain images of sufficient resolution adequate for diagnostic evaluation.
--- NOTE | 2017-12-09 13:05 | Diagnostic Imaging Report ---
Indications: Altered mental status Technique: Spiral acquisitions obtained through the brain. Angled axial and coronal 5 x 5 mm slices were reconstructed. Total dose length product 1390.16 mGycm. CTDI vol(s) 70.38 mGy. Dose reduction achieved using automated exposure control Comparison: No acute intrarenal hemorrhage or edema, mass effect, nor midline shift. Old lacunar infarcts are seen in the anterior limbs of internal capsules bilaterally. There is mild age-related enlargement of the ventricles and extra-axial CSF spaces. There is mild periventricular deep white matter low-attenuation consistent with chronic ischemic change. Visualized orbits and sinuses are unremarkable. The calvarium is intact Findings: Chronic and age-related changes Negative for acute intracranial bleed or mass effect Impression: The CT scanner at [facility] is accredited by the [employer] and the scans are performed using protocols designed to limit radiation exposure to as low as reasonably achievable to attain images of sufficient resolution adequate for diagnostic evaluation.
[2017-12-09 13:06] LABS: ALANINE AMINOTRANSFERASE 32 U/L (12-78); ALBUMIN 4.2 G/DL (3.4-5.0); ALKALINE PHOSPHATASE 110 U/L (46-116); ASPARTATE AMINO TRANSFERASE 59 U/L (15-37); BILIRUBIN,TOTAL 0.7 MG/DL (0.2-1.0); CKMB 9.1 NG/ML (0.0-3.6); CREATINE KINASE 1146 U/L (26-308)
[2017-12-09 14:00] VITALS: BP 184/95
[2017-12-09 14:01] LABS: HEMOGLOBIN 16.4 G/DL (14.2-18.0); MEAN CORPUSCULAR VOLUME 92 FL (80-99); PLATELET COUNT 224 K/UL (150-450); RED BLOOD COUNT 5.43 M/UL (4.70-6.10); RED CELL DISTRIBUTION WIDTH 12.3 % (11.6-14.8); WHITE BLOOD COUNT 16.3 K/UL (4.8-10.8)
[2017-12-09 15:50] VITALS: BP 188/98
[2017-12-09] MEDS ORDERED: D5 1/2NS w/KCl 20mEq 1,000 ML IV SCH (16:00)
--- NOTE | 2017-12-09 16:05 | Diagnostic Imaging Report ---
Indication: Shortness of breath Technique: One view of the chest Comparison: none Findings: Lungs and pleural spaces are clear. Heart size is normal Impression: No acute process
[2017-12-09 16:26] VITALS: BP 188/98
--- NOTE | 2017-12-11 15:55 | Cardiology Report ---
APPROVED REPORT EKG Measurement Heart [id number] Sinus rhythm with premature atrial complexes Septal infarct, age undetermined Abnormal ECG
== END 2017-12-09 16:28 | disposition home or self-care (01) ==
LOC: EDBD 12:09 → MERGE 13:40 → EDBD 13:40 → EMR 13:40
DX: E11.649 Type 2 diabetes mellitus with hypoglycemia without coma (principal); F14.10 Cocaine abuse, uncomplicated; M62.82 Rhabdomyolysis
CPT/HCPCS: 36415; 70450; 70486; 71045; 80053; 80307; 80329; 81003; 82550; 82553; 83605; 83690; 84484; 85007; 85025; 87040; 93005; 96360; 99285

== ENCOUNTER 2018-04-04 12:54 | Emergency (ER) | payer OTHER ==
[~2018-04-04] VITALS: Ht 167.6 cm; Wt 66.2 kg
[2018-04-04 13:15] VITALS: BP 149/82
--- NOTE | 2018-04-04 13:17 | NUR ---
ED Nurse Note: Pt walked in the ER with cane for High blood sugar >500 at 0600 today. bedside blood sugar was reassessed and is still high. pt is aox 4 pt is c/o nausea and vomiting. no pain at this time.
[2018-04-04] MEDS ORDERED: METFORMIN HCL500 M1 ORAL (13:49)
[2018-04-04] MEDS ORDERED: JANUVIA100 MG ORAL (13:49)
[2018-04-04 13:50] LABS: HEMOGLOBIN 16.9 G/DL (14.2-18.0); MEAN CORPUSCULAR VOLUME 97 FL (80-99); PLATELET COUNT 176 K/UL (150-450); RED BLOOD COUNT 5.66 M/UL (4.70-6.10); RED CELL DISTRIBUTION WIDTH 12.4 % (11.6-14.8); WHITE BLOOD COUNT 15.9 K/UL (4.8-10.8)
[2018-04-04] MEDS ORDERED: cefTRIAXone 1 GM in NS 55 ML IVPB ONE (14:15)
[2018-04-04 14:51] LABS: ALANINE AMINOTRANSFERASE 34 U/L (12-78); ALBUMIN 2.5 G/DL (3.4-5.0); ALBUMIN/GLOBULIN RATIO 0.8 (1.0-2.7); ALKALINE PHOSPHATASE 104 U/L (46-116); ANION GAP 13 mmol/L (5-15); ASPARTATE AMINO TRANSFERASE 22 U/L (15-37); BILIRUBIN,TOTAL 0.4 MG/DL (0.2-1.0); BLOOD UREA NITROGEN 129 mg/dL (7-18); CALCIUM 6.5 MG/DL (8.5-10.1); CARBON DIOXIDE 19 MMOL/L (21-32); CHLORIDE 105 MMOL/L (98-107); CREATININE 5.5 MG/DL (0.55-1.30); POTASSIUM 5.6 MMOL/L (3.5-5.1); SODIUM 137 MMOL/L (136-145)
[2018-04-04 15:01] LABS: APPEARANCE,URINE CLEAR; BILIRUBIN, URINE NEGATIVE (NEGATIVE); COLOR,URINE YELLOW; GLUCOSE, URINE (UA) 4+ (NEGATIVE); KETONES,URINE 1+ (NEGATIVE); LEUKOCYTE ESTERASE ,URINE 1+ (NEGATIVE); NITRITE,URINE NEGATIVE (NEGATIVE); PH,URINE 5 (4.5-8.0); PROTEIN,URINE 2+ (NEGATIVE); UROBILINOGEN,URINE NORMAL MG/DL (0.0-1.0)
--- NOTE | 2018-04-04 15:15 | NUR ---
ED Nurse Note: pt threw up brownish emesis. MD notified. pt vss, pt is aao x 4, no pain. awaiting new orders.
--- NOTE | 2018-04-04 16:14 | NUR ---
ED Nurse Note: pt was give zofran at 1546 per md order. pt reports no feeling of nausea or vomting. pt denies pain, pt is now resting in bed, vss at the moment. room lights dimmed. will continue to monitor.
[2018-04-04] MEDS ORDERED: Insulin Human Regular 100units/ml 3ml IV ONE (16:15)
--- NOTE | 2018-04-04 16:25 | Emergency Room Report ---
History of Present Illness General Chief Complaint: Abnormal Labs Source: Patient Present Illness HPI This patient states that he has had a cough for the past 3 days. He states he has had thick sputum production. He has also had difficulty taking his medications because he will vomit them back up. He denies abdominal pain or chest pain. He states that he took his blood sugar today and it said "high." He denies fever or chills. He has had vomiting. He denies abdominal pain. He denies dysuria or hematuria. He has no other complaints. Allergies: Coded Allergies: No Known Allergies (Unverified , 06/25/14) UNABLE TO ASSESS (Unverified , 12/09/17) Patient History Past Medical History: see triage record, DM, HTN, CVA/TIA Social History: Denies: smoking, alcohol use, drug use Reviewed Nursing Documentation: PMH: Agreed; PSxH: Agreed Nursing Documentation-PMH Past Medical History: No History, Except For Hx Cardiac Problems: Yes Hx Hypertension: Yes Hx Pacemaker: No Hx Asthma: No Hx COPD: No Hx Diabetes: Yes - DKA Hx Cancer: No Hx Gastrointestinal Problems: No Hx Dialysis: No Hx Neurological Problems: Yes Hx Cerebrovascular Accident: Yes Hx Seizures: No Review of Systems All Other Systems: negative except mentioned in HPI Physical Exam Vital Signs Date Time Temp Pulse Resp B/P (MAP) Pulse Ox O2 Delivery O2 Flow Rate FiO2 04/04/18 13:07 97.2 88 25 149/82 90 Room Air Sp02 EP Interpretation: reviewed, normal General Appearance: no apparent distress, alert, GCS 15, non-toxic Head: normocephalic, atraumatic Eyes: bilateral eye normal inspection, bilateral eye PERRL ENT: hearing grossly normal, normal pharynx, no angioedema, normal voice Neck: full range of motion, supple/symm/no masses Respiratory: chest non-tender, lungs clear, normal breath sounds, no respiratory distress, no retraction, no accessory muscle use, speaking full sentences Cardiovascular #1: regular rate, rhythm, no edema Gastrointestinal: normal bowel sounds, non tender, soft, non-distended, no guarding, no rebound Rectal: deferred Musculoskeletal: back normal, gait/station normal, normal range of motion, non- tender, calf tenderness Neurologic: alert, oriented x3, responsive, motor strength/tone normal, sensory intact, speech normal Psychiatric: judgement/insight normal, memory normal, mood/affect normal, no suicidal/homicidal ideation Skin: normal color, no rash, warm/dry, well hydrated Medical Decision Making Diagnostic Impression: Primary Impression: SUDHAKAR (acute kidney injury) Additional Impressions: Hyperosmolar non-ketotic state in patient with type 2 diabetes mellitus Dehydration Pneumonia ER Course This patient presents with hyperosmolar, hyperglycemic nonketotic state. Patient's initial blood sugar is over 700. Here in the emergency department he had multiple episodes of vomiting. He has findings on laboratory workup concerning for acute kidney injury and dehydration. So has thick sputum production concerning for pneumonia. Laboratory Tests Test 04/04/18 13:20 04/04/18 14:15 White Blood Count 15.9 K/UL (4.8-10.8) H Red Blood Count 5.66 M/UL (4.70-6.10) Hemoglobin 16.9 G/DL (14.2-18.0) Hematocrit 55.0 % (42.0-52.0) H Mean Corpuscular Volume 97 FL (80-99) Mean Corpuscular Hemoglobin 29.8 PG (27.0-31.0) Mean Corpuscular Hemoglobin Concent 30.7 G/DL (32.0-36.0) L Red Cell Distribution Width 12.4 % (11.6-14.8) Platelet Count 176 K/UL (150-450) Mean Platelet Volume 8.6 FL (6.5-10.1) Neutrophils (%) (Auto) % (45.0-75.0) Lymphocytes (%) (Auto) % (20.0-45.0) Monocytes (%) (Auto) % (1.0-10.0) Eosinophils (%) (Auto) % (0.0-3.0) Basophils (%) (Auto) % (0.0-2.0) Differential Total Cells Counted 100 Neutrophils % (Manual) 91 % (45-75) H Lymphocytes % (Manual) 4 % (20-45) L Monocytes % (Manual) 5 % (1-10) Eosinophils % (Manual) 0 % (0-3) Basophils % (Manual) 0 % (0-2) Band Neutrophils 0 % (0-8) Platelet Estimate Adequate Platelet Morphology Normal Red Blood Cell Morphology Normal Sodium Level 137 MMOL/L (136-145) Potassium Level 5.6 MMOL/L (3.5-5.1) H Chloride Level 105 MMOL/L (98-107) Carbon Dioxide Level 19 MMOL/L (21-32) L Anion Gap 13 mmol/L (5-15) Blood Urea Nitrogen 129 mg/dL (7-18) H Creatinine 5.5 MG/DL (0.55-1.30) H Estimate Glomerular Filtration Rate 12.7 mL/min (>60) Glucose Level 745 MG/DL (74-106) *H Calcium Level 6.5 MG/DL (8.5-10.1) L Magnesium Level 2.4 MG/DL (1.8-2.4) Total Bilirubin 0.4 MG/DL (0.2-1.0) Aspartate Amino Transferase (AST) 22 U/L (15-37) Alanine Aminotransferase (ALT) 34 U/L (12-78) Alkaline Phosphatase 104 U/L (46-116) Total Protein 5.6 G/DL (6.4-8.2) L Albumin 2.5 G/DL (3.4-5.0) L Globulin 3.1 g/dL Albumin/Globulin Ratio 0.8 (1.0-2.7) L Acetone Level Negative (NEGATIVE) Urine Color Yellow Urine Appearance Clear Urine pH 5 (4.5-8.0) Urine Specific [place] 1.020 (1.005-1.035) Urine Protein 2+ (NEGATIVE) H Urine Glucose (UA) 4+ (NEGATIVE) H Urine Ketones 1+ (NEGATIVE) H Urine Blood Negative (NEGATIVE) Urine Nitrite Negative (NEGATIVE) Urine Bilirubin Negative (NEGATIVE) Urine Urobilinogen Normal MG/DL (0.0-1.0) Urine Leukocyte Esterase 1+ (NEGATIVE) H Urine RBC 0-2 /HPF (0 - 0) H Urine WBC 2-4 /HPF (0 - 0) Urine Squamous Epithelial Cells None /LPF (NONE/OCC) Urine Bacteria Few /HPF (NONE) Last Vital Signs Date Time Temp Pulse Resp B/P (MAP) Pulse Ox O2 Delivery O2 Flow Rate FiO2 04/04/18 13:15 88 25 Room Air 04/04/18 13:15 97.2 149/82 90 Referrals: [facility],REFERRING (PCP) Yuliya Lowery DO Apr 04, 2018 16:25
--- NOTE | 2018-04-04 16:55 | Diagnostic Imaging Report ---
Indication: Cough Comparison: 07/02/2016 A single view chest radiograph was obtained. Findings: Cardiomediastinal appearance is within normal limits for age. The lungs are clear. Pulmonary vascularity is appropriate. The diaphragmatic contour is smooth and costophrenic angles are sharp. No pleural effusions are identified. The bones are unremarkable. Impression: No acute findings
--- NOTE | 2018-04-04 18:39 | NUR ---
ED Nurse Note: Attempted to call BOBO Brown at [facility] for pt transfer report. was unable to give report will attempt again shortly.
--- NOTE | 2018-04-04 18:46 | NUR ---
ED Nurse Note: attempted to call BOBO Brown from [facility] to give report for pt transfer. Unable to give report.
--- NOTE | 2018-04-04 19:10 | NUR ---
ED Nurse Note: Attempted 3rd time to call BOBO Brown from [place] [facility]. unable to give report.
--- NOTE | 2018-04-04 19:11 | NUR ---
HAND-OFF: Report given to BOBO Bonner.
[2018-04-04 19:17] VITALS: BP 152/85
[2018-04-04 21:20] VITALS: BP 150/84
[2018-04-04 22:29] VITALS: BP 147/82
--- NOTE | 2018-04-04 22:29 | NUR ---
ED Nurse Note: PT BS is 73 during DC. MD Aware. pt is alert and orinted times 4. no skin issues noted in ER.
--- NOTE | 2018-04-04 22:29 | NUR ---
ED Nurse Note: PT is transfered to [facility], and report given to NOAH BROUSSARD. pt vital signs, condition and status has been reported to receving RN and ERMD prior to DC. pt has transfered with all belongings.
--- NOTE | 2018-04-04 22:29 | NUR ---
ED Nurse Note: PT BS is 73 during DC. Aware.
--- NOTE | 2018-04-05 16:04 | Cardiology Report ---
APPROVED REPORT EKG Measurement Heart [id number] GA 130P65 [id number] Normal sinus rhythm Normal ECG
--- NOTE | 2018-04-05 16:05 | Cardiology Report ---
APPROVED REPORT EKG Measurement Heart [id number] VA 142P16 [id number] Normal sinus rhythm Normal ECG
== END 2018-04-04 22:30 | disposition other institution (70) ==
LOC: EMR 13:45 → EDBEDREQSVC 16:15 → EDBEDREQ 16:15 → EMR 22:30
DX: N17.9 Acute kidney failure, unspecified (principal); E11.00 Type 2 diabetes mellitus with hyperosmolarity without nonketotic hyperglycemic-hyperosmolar coma (NKHHC); E86.0 Dehydration; J18.9 Pneumonia, unspecified organism; I10 Essential (primary) hypertension; Z86.73 Personal history of transient ischemic attack (TIA), and cerebral infarction without residual deficits
CPT/HCPCS: 36415; 71045; 80053; 81003; 82009; 82947; 83735; 85007; 85025; 93005; 96361; 96365; 96375; 99284; J0696; J1815; J2405

== ENCOUNTER 2019-04-02 09:03 | Inpatient (IN) | payer MEDICARE, OTHER ==
[~2019-04-02] VITALS: Ht 167.6 cm; Wt 68.1 kg
[2019-04-02] VITALS (12 sets, daily range): BP systolic 104–138; BP diastolic 72–89
[~2019-04-02 09:03] MED LIST changes: +JANUVIA100 MG ORAL; +METFORMIN HCL500 M1 ORAL
--- NOTE | 2019-04-02 09:10 | NUR ---
ED Nurse Note: Patient brought into ED from home by ambulance RA 26, per EMS, patient's friend called 911 as he was lying on the ground with an orange juice right next to him. BS on the field was >[address]. notified [address] Ortiz. patient is alert awake x3, appears to be weak. patient on a hospital gown, and on a cardiac exercise physiologist.
[2019-04-02 10:36] LABS: ALANINE AMINOTRANSFERASE 18 U/L (12-78); ALBUMIN 4.2 G/DL (3.4-5.0); ALBUMIN/GLOBULIN RATIO 0.9 (1.0-2.7); ALKALINE PHOSPHATASE 105 U/L (46-116); ANION GAP 15 mmol/L (5-15); ASPARTATE AMINO TRANSFERASE 13 U/L (15-37); BILIRUBIN,TOTAL 0.5 MG/DL (0.2-1.0); BLOOD UREA NITROGEN 173 mg/dL (7-18); CALCIUM 9.7 MG/DL (8.5-10.1); CARBON DIOXIDE 27 MMOL/L (21-32); CHLORIDE 110 MMOL/L (98-107); CREATININE 4.2 MG/DL (0.55-1.30); POTASSIUM 5.9 MMOL/L (3.5-5.1); SODIUM 152 MMOL/L (136-145)
[2019-04-02 10:38] LABS: BASOPHILS % (AUTO) 0.8 % (0.0-2.0); EOSINOPHILS % (AUTO) 0.2 % (0.0-3.0); HEMATOCRIT 45.7 % (42.0-52.0); HEMOGLOBIN 14.1 G/DL (14.2-18.0); LYMPHOCYTES % (AUTO) 13.5 % (20.0-45.0); MEAN CORPUSCULAR VOLUME 94 FL (80-99); NEUTROPHILS % (AUTO) 79.6 % (45.0-75.0); PLATELET COUNT 250 K/UL (150-450); RED BLOOD COUNT 4.86 M/UL (4.70-6.10); RED CELL DISTRIBUTION WIDTH 15.3 % (11.6-14.8); WHITE BLOOD COUNT 12.1 K/UL (4.8-10.8)
[2019-04-02 11:00] LABS: APPEARANCE,URINE CLEAR; BILIRUBIN, URINE NEGATIVE (NEGATIVE); GLUCOSE, URINE (UA) 3+ (NEGATIVE); KETONES,URINE 2+ (NEGATIVE); LEUKOCYTE ESTERASE ,URINE NEGATIVE (NEGATIVE); NITRITE,URINE NEGATIVE (NEGATIVE); PH,URINE 5 (4.5-8.0); PROTEIN,URINE 2+ (NEGATIVE); UROBILINOGEN,URINE NORMAL MG/DL (0.0-1.0)
[2019-04-02 11:01] LABS: COLOR,URINE YELLOW
[2019-04-02] MEDS ORDERED: Insulin Human Regular 100units/ml 3ml IV PRN ×8 (11:15→21:15)
[2019-04-02] MEDS ORDERED: Insulin Rate Change 1 Each MISC PRN (11:15)
--- NOTE | 2019-04-02 12:47 | Emergency Room Report ---
History of Present Illness General Chief Complaint: Abnormal Labs Present Illness HPI 63-year-old male History of diabetes, hypertension, CVA, hepatitis C found to have elevated blood glucose at home. Patient reported not taking his insulin for 2 days as he is been unable to tolerate any food. Patient is a type II diabetic insulin-dependent. Patient denies any other complaints. History however is limited as patient is lethargic. Allergies: Coded Allergies: No Known Allergies (Unverified , 06/25/14) UNABLE TO ASSESS (Unverified , 12/09/17) Nursing Documentation-PMH Hx Cardiac Problems: Yes Hx Hypertension: Yes Hx Pacemaker: No Hx Asthma: No Hx COPD: No Hx Diabetes: Yes - DKA Hx Cancer: No Hx Gastrointestinal Problems: No Hx Dialysis: No Hx Neurological Problems: Yes Hx Cerebrovascular Accident: Yes Hx Seizures: No Review of Systems All Other Systems: limited - Lethargy Physical Exam Vital Signs Date Time Temp Pulse Resp B/P (MAP) Pulse Ox O2 Delivery O2 Flow Rate FiO2 04/02/19 08:58 97.3 100 20 128/86 (100) 100 Sp02 EP Interpretation: reviewed General Appearance: well appearing, non-toxic, mild distress, lethargic, other - Free breath odor Head: normocephalic, atraumatic Eyes: bilateral eye normal inspection ENT: hearing grossly normal, EOM grossly intact, dry mucus membranes Neck: supple Respiratory: lungs clear, normal breath sounds, no respiratory distress, speaking full sentences Cardiovascular #1: regular rate, rhythm, normal capillary refill Cardiovascular #2: 2+ radial (R), 2+ radial (L) Gastrointestinal: soft, no mass, non-distended Rectal: deferred Musculoskeletal: moves extm spontaneously Neurologic: other Psychiatric: mood/affect normal Skin: warm/dry, other - poor turgor dry skin Procedures Critical Care Time Critical Care Time Critical care time, 35 minutes, not including teachable time or procedural time. Medical Decision Making Diagnostic Impression: Primary Impression: Hyperglycemia ER Course 63-year-old male presents to emergency room with elevated blood glucose at home after not taking his insulin. Patient found to have glucose above 500 at home and again here in emergency room. Patient is lethargic with fruity breath on exam We will perform lab testing and evaluate for hyperglycemia with concern for ketoacidosis Laboratory Tests Test 04/02/19 09:40 04/02/19 09:55 04/02/19 10:10 04/02/19 10:40 Lactic Acid Level 3.20 mmol/L (0.4-2.0) H Arterial Blood pH 7.352 (7.350-7.450) Arterial Blood Partial Pressure CO2 42.0 mmHg (35.0-45.0) Arterial Blood Partial Pressure O2 91.0 mmHg (75.0-100.0) Arterial Blood HCO3 22.8 mmol/L (22.0-26.0) Arterial Blood Oxygen Saturation 95.8 % (95-100) Arterial Blood Base Excess -2.7 (-2-2) L Ok Test Positive White Blood Count 12.1 K/UL (4.8-10.8) H Red Blood Count 4.86 M/UL (4.70-6.10) Hemoglobin 14.1 G/DL (14.2-18.0) L Hematocrit 45.7 % (42.0-52.0) Mean Corpuscular Volume 94 FL (80-99) Mean Corpuscular Hemoglobin 29.1 PG (27.0-31.0) Mean Corpuscular Hemoglobin Concent 30.9 G/DL (32.0-36.0) L Red Cell Distribution Width 15.3 % (11.6-14.8) H Platelet Count 250 K/UL (150-450) Mean Platelet Volume 7.4 FL (6.5-10.1) Neutrophils (%) (Auto) 79.6 % (45.0-75.0) H Lymphocytes (%) (Auto) 13.5 % (20.0-45.0) L Monocytes (%) (Auto) 6.0 % (1.0-10.0) Eosinophils (%) (Auto) 0.2 % (0.0-3.0) Basophils (%) (Auto) 0.8 % (0.0-2.0) Sodium Level 152 MMOL/L (136-145) H Potassium Level 5.9 MMOL/L (3.5-5.1) H Chloride Level 110 MMOL/L (98-107) H Carbon Dioxide Level 27 MMOL/L (21-32) Anion Gap 15 mmol/L (5-15) Blood Urea Nitrogen 173 mg/dL (7-18) H Creatinine 4.2 MG/DL (0.55-1.30) H Estimate Glomerular Filtration Rate 17.3 mL/min (>60) Glucose Level 688 MG/DL (74-106) *H Hemoglobin A1c Pending Osmolality 426 mOsm/kg (297-317) H Calcium Level 9.7 MG/DL (8.5-10.1) Magnesium Level 4.3 MG/DL (1.8-2.4) H Total Bilirubin 0.5 MG/DL (0.2-1.0) Aspartate Amino Transferase (AST) 13 U/L (15-37) L Alanine Aminotransferase (ALT) 18 U/L (12-78) Alkaline Phosphatase 105 U/L (46-116) Troponin I 0.003 ng/mL (0.000-0.056) Total Protein 9.1 G/DL (6.4-8.2) H Albumin 4.2 G/DL (3.4-5.0) Globulin 4.9 g/dL Albumin/Globulin Ratio 0.9 (1.0-2.7) L Acetone Level Positive-small (NEGATIVE) Urine Color Yellow Urine Appearance Clear Urine pH 5 (4.5-8.0) Urine Specific [place] 1.025 (1.005-1.035) Urine Protein 2+ (NEGATIVE) H Urine Glucose (UA) 3+ (NEGATIVE) H Urine Ketones 2+ (NEGATIVE) H Urine Blood Negative (NEGATIVE) Urine Nitrite Negative (NEGATIVE) Urine Bilirubin Negative (NEGATIVE) Urine Urobilinogen Normal MG/DL (0.0-1.0) Urine Leukocyte Esterase Negative (NEGATIVE) Urine RBC 0-2 /HPF (0 - 0) H Urine WBC 0-2 /HPF (0 - 0) Urine Squamous Epithelial Cells Few /LPF (NONE/OCC) Urine Bacteria Occasional /HPF (NONE) Test 04/02/19 11:40 Lactic Acid Level 2.40 mmol/L (0.66-2.22) H Lab Results Impression Mild elevation in WBC, elevated blood glucose 688 found to have elevated lactic acid and anion gap of 15, elevated osmolarity, mild hyperkalemia and hypernatremia consistent with hyper glycemia. Acetone positive Labs consistent with DKA EKG Diagnostic Results EKG Time: 09:16 EP Interpretation: Sinus tachycardia rate of 102, Rate: tachycardiac Rhythm: NSR ST Segments: other - Mild elevation of V1 V2 however not greater than 1 mm Chest X-Ray Diagnostic Results Chest X-Ray Diagnostic Results : Chest X-Ray Ordered: Yes # of Views/Limited/Complete: 1 View EP Interpretation: Yes Interpretation: no consolidation, no effusion, no pneumothorax, no acute cardiopulmonary disease Impression: No acute disease Reevaluation Time: 12:41 Last Vital Signs Date Time Temp Pulse Resp B/P (MAP) Pulse Ox O2 Delivery O2 Flow Rate FiO2 04/02/19 10:07 97.3 100 16 121/89 100 Reevaluation Impression Case discussed with Dr. Cutler who accepted pts admission to ICU Disposition: ADMITTED INPATIENT Referrals: [facility]/,REFERRING (PCP) Christiano Ortiz M.D. Apr 02, 2019 12:47
--- NOTE | 2019-04-02 13:36 | NUR ---
ED Nurse Note: patient is a/o x3 in no acute distress, blankets provided, patient is on a hall monitor.
--- NOTE | 2019-04-02 15:45 | NUR ---
ED Nurse Note: patient transferred to [facility] with all of his belongings, on ACLS protocol.
--- NOTE | 2019-04-02 16:46 | NUR ---
NURSE NOTES: Patient is a 63 year old male admitted for hyperglycemia, alert and oriented x 3.Accu-check at this time 273, Dr Muse paged for orders.Awaiting call back. Patient awake, no apparent acute distress.On room air and saturate at 100%.Afebrile at this time. Admitted with a black phone with an old phone screen glass broken and no sliver cutter, no owen. Patient has an old black wallets with social security in and different cards. Also admitted with a short , one pajama (pant only)and blue T-shirt.No skin impairment noted.Will continue close monitoring
--- NOTE | 2019-04-02 17:00 | NUR ---
NURSE NOTES: Patient on insulin drip at 17.5 unit at this time, add 5 units , BS 273, will continue to monitor
--- NOTE | 2019-04-02 18:10 | NUR ---
NURSE NOTES: Order received from Dr Muse, to start 1/2NS at 150 and stat BMP, CBC,BMP in AM. Made aware potassium 5.9 and sodium 152.Patient kept on close monitoring.Remains on insulin drip and BS at this time 132
[2019-04-02] MEDS: Insulin Rate Change 1 Each MISC PRN ×4 (18:23→23:05)
--- NOTE | 2019-04-02 19:30 | NUR ---
HAND-OFF: Report given to BOBO FRANCO.
--- NOTE | 2019-04-02 19:31 | NUR ---
NURSE NOTES: SBAR from Debbie BROUSSARD. Patient is awake and alert at this time. Patient is aware of surroundings and can make needs known. Patient is sightly lethargic/somnolent. Currently patient on Insulin gtt at 1 unit/hr. Patient is also running 1/2NS at 150ml/hr. L FA 22G and R FA 20G PIV lines. Condom catheter noted. Safety measures are in place, call light within reach.
--- NOTE | 2019-04-02 20:00 | NUR ---
NURSE NOTES: Glucose noted to be 56. Held insulin gtt and gave 118ml of orange juice. [employer] Mathematics Teacher at bedside drawing labs
--- NOTE | 2019-04-02 20:30 | NUR ---
NURSE NOTES: Glucose was taken again after 1 cup of orange juice was given. glucose now is 36. 50ml of D50% IVP was given.
--- NOTE | 2019-04-02 21:00 | NUR ---
NURSE NOTES: Glucose taken and was 156. Started patient on algorithm 2. Per unit protocol insulin gtt to be started at 2units/hr. Patient is more awake and responsive.
[2019-04-02 21:35] LABS: ANION GAP 7 mmol/L (5-15); BLOOD UREA NITROGEN 146 mg/dL (7-18); CALCIUM 8.9 MG/DL (8.5-10.1); CARBON DIOXIDE 30 MMOL/L (21-32); CHLORIDE 129 MMOL/L (98-107); CREATININE 2.9 MG/DL (0.55-1.30); POTASSIUM 3.8 MMOL/L (3.5-5.1)
[2019-04-02 21:40] LABS: SODIUM 166 MMOL/L (136-145)
--- NOTE | 2019-04-02 22:00 | NUR ---
NURSE NOTES: Patients glucose is 157. Patient to remains on 2units/hr. Patient is awake and alert at this time. NAD at this time.
--- NOTE | 2019-04-02 22:19 | NUR ---
NURSE NOTES: Na and Yuri. urine samples collected and sent to lab
--- NOTE | 2019-04-02 23:00 | NUR ---
NURSE NOTES: Glucose noted to be 108, per protocol insulin gtt decreased to 0.5units/hr.
[2019-04-03] VITALS (24 sets, daily range): BP systolic 92–150; BP diastolic 56–95
--- NOTE | 2019-04-03 | NUR ---
NURSE NOTES: Repositioned and oral care given. Vitals remains stable. Patient is alert and awake at this time. Glucose noted to be 90, per protocol insulin gtt to remain 0.5units/hr. 118ml of orange juice given. No acute distress at this time. NSR on the monitor.
--- NOTE | 2019-04-03 00:30 | History and Physical Report ---
DATE OF ADMISSION: 04/02/2019 REASON FOR ADMISSION: Diabetic ketoacidosis. HISTORY OF PRESENT ILLNESS: This is a 63-year-old male who apparently ran out of his insulin. The patient has a longstanding history of diabetes and prior CVa. The patient has not been taking his insulin for the past 2 days and unable to tolerate any food. The patient presented with diabetic ketoacidosis. The patient is somewhat lethargic, was initially somewhat tachypneic with significantly abnormal labs. The patient presented with evidence of severe renal failure based on findings, unclear as to underlying chronic kidney disease at present. The patient denies any fevers or chills. Denies any falls. The patient is slightly confused. The patient's chart is reviewed. The patient was started on insulin drip at the emergency room and admitted to ICU. PAST MEDICAL HISTORY: Notable for hypertension, CVA, hepatitis C, diabetes, and prior history of diabetic ketoacidosis. MEDICATIONS: Reviewed. ALLERGIES: Reviewed. SOCIAL HISTORY: The patient is currently lethargic, difficult to fully assess. No clear smoking and drinking history. No clear history of any drug abuse. FAMILY HISTORY: At present limited. REVIEW OF SYSTEMS: At present limited. PHYSICAL EXAMINATION: GENERAL: The patient is an ill-appearing male. The patient is without significant distress. Slightly tachypneic. VITAL SIGNS: Blood pressure is 133/79, respiratory rate 21, temperature 97.3, and sats 100% on room air. HEENT: Fairly negative. Extraocular movements are grossly intact. Oropharynx is moist. No thrush. NECK: Supple. No adenopathy. No jugular venous distention. LUNGS: Fairly clear and symmetric. No rhonchi or wheezes. CARDIAC: S1, S2. Regular rate and rhythm without murmurs, rubs, or gallops. ABDOMEN: Soft, nontender, and nondistended. EXTREMITIES: No cyanosis, clubbing, or edema. NEUROLOGIC: weakness focal, but confused.and dysarthric SKIN: Turgor is reduced. LABORATORY DATA: Reviewed. ABG, 7.35/42/91/22. Chemistry, sodium 142, potassium 5.9, BUN 176, creatinine 4.2. Blood sugar 638. Albumin 4.2. Lactic acid elevated. ketone is positive. IMPRESSION: 1. Diabetic ketoacidosis. 2. Profound hypernatremia. 3. Acute possible chronic renal failure. 4. Profound hyperglycemia. 5. Hyperkalemia. 6. History of hypertension. 7. prior CVA 8. dysarthria 9. toxic met encephalopathy RECOMMENDATIONS: 1. Support clinically. 2. Half-normal saline at 150 mL. 3. Insulin drip until ketone has resolved. 4. Obtain renal evaluation. 5. Monitor in ICU. 6. Monitor blood sugars. 7. Follow up labs. 8. Monitor K levels. Expect level should improve with hydration and maintain insulin drip until the patient improves, and thereafter, we will transition over to long-acting insulin. 9. The patient is critical at present. We will follow clinically for further changes and interventions. Jadon Muse M.D. DR: DEMETRIA JOB#: [id number] CC: MONIKA
--- NOTE | 2019-04-03 01:00 | NUR ---
NURSE NOTES: Glucose noted to be 135, per protocol insulin gtt to increase to 1.5units/hr.. Patient awake and oriented. Watching television.
[2019-04-03] MEDS: Insulin Rate Change 1 Each MISC PRN ×6 (01:08→06:56)
--- NOTE | 2019-04-03 02:00 | NUR ---
NURSE NOTES: Glucose noted to be 113, per protocol insulin gtt to decrease to 1 units/hr.
--- NOTE | 2019-04-03 03:00 | NUR ---
NURSE NOTES: Glucose noted to be 146, per protocol insulin gtt to increased to 2 units/hr. Patient remains awake and alert at this time. Not as lethargic as in start of shift. Patient able to make needs known. Patient is making urine output. Will continue to monitor.
--- NOTE | 2019-04-03 04:00 | NUR ---
NURSE NOTES: Patient was cleaned and new linen applied. Right wrist IV line discontinued and right FA 20G line inserted. Glucose noted to be 127. Titrated insulin according to sliding scale protocol. Patient remains awake and alert at this time, watching television.
--- NOTE | 2019-04-03 05:00 | NUR ---
NURSE NOTES: Glucose noted to be 110. Titrated insulin according to sliding scale protocol. Patient remains awake and alert.
[2019-04-03 05:36] LABS: BASOPHILS % (AUTO) 0.5 % (0.0-2.0); EOSINOPHILS % (AUTO) 1.1 % (0.0-3.0); HEMATOCRIT 31.4 % (42.0-52.0); HEMOGLOBIN 9.7 G/DL (14.2-18.0); LYMPHOCYTES % (AUTO) 14.6 % (20.0-45.0); MEAN CORPUSCULAR VOLUME 93 FL (80-99); MONOCYTES % (AUTO) 5.6 % (1.0-10.0); NEUTROPHILS % (AUTO) 78.1 % (45.0-75.0); PLATELET COUNT 215 K/UL (150-450); RED BLOOD COUNT 3.38 M/UL (4.70-6.10); RED CELL DISTRIBUTION WIDTH 14.7 % (11.6-14.8); WHITE BLOOD COUNT 15.9 K/UL (4.8-10.8)
[2019-04-03 05:56] LABS: ALANINE AMINOTRANSFERASE 15 U/L (12-78); ALBUMIN 2.9 G/DL (3.4-5.0); ALBUMIN/GLOBULIN RATIO 0.9 (1.0-2.7); ALKALINE PHOSPHATASE 67 U/L (46-116); ANION GAP 8 mmol/L (5-15); ASPARTATE AMINO TRANSFERASE 14 U/L (15-37); BILIRUBIN,TOTAL 0.4 MG/DL (0.2-1.0); BLOOD UREA NITROGEN 120 mg/dL (7-18); CALCIUM 8.2 MG/DL (8.5-10.1); CARBON DIOXIDE 27 MMOL/L (21-32); CHLORIDE 126 MMOL/L (98-107); CREATININE 2.5 MG/DL (0.55-1.30); POTASSIUM 3.9 MMOL/L (3.5-5.1); SODIUM 160 MMOL/L (136-145)
--- NOTE | 2019-04-03 06:24 | NUR ---
NURSE NOTES: Glucose noted to be 110. Titrated insulin according to sliding scale protocol. Patient remains awake and alert. Patient remains awake and oriented. NAD. No new changes for patient at this time.
--- NOTE | 2019-04-03 07:22 | NUR ---
HAND-OFF: Report given to Pham BROUSSARD.
--- NOTE | 2019-04-03 08:00 | NUR ---
NURSE NOTES: Received change of shift report from Gerardo BROUSSARD. Pt is awake, alert, oriented to person/place, however slightly confused on purpose for being hospitalized. NSR on epic kaleidoscope analyst, HR in the 90's. Pt is on room air at 100% O2Sat with slightly diminished yet clear lung sounds. Temp 98.5F axillary. Abdomen is round, soft, nontender to touch with hypoactive bowel sounds. Pt is currently maintained on Insulin drip at Algorithm 2, infusing 0.2units/hour for last glucose level of 85. Pt has two peripheral IV access, bilateral FA, both #20Gs, patent/intact. IV fluid is infusing 0.45%NS at 225ml/hour. Skin is intact. Condom cath is present, draining clear/yellow urine. Head of bed at semi-aguilera's, three side rails up, bed locked, and call light within easy reach. Will continue with plan of care.
[2019-04-03] MEDS: Pantoprazole Inj IVP SCH (08:16)
--- NOTE | 2019-04-03 08:36 | Critical Care Progress Note ---
Assessment/Plan Assessment/Plan IMPRESSION: 1. Diabetic ketoacidosis. 2. Profound hypernatremia. 3. Acute possible chronic renal failure. 4. Profound hyperglycemia. 5. Hyperkalemia. 6. History of hypertension. 7. leukocytosis 8. anemia 9. prior CVA with focal weakness PLAN ID evaluation to comment hypotonic fluids dc insulin drip and start long acting insulin and sliding scale venous US ICU care monitor lytes and renal parameters close follow up for change renal follow up appreciated DVT prophylaxis off load monitor fluid status medications/laboratory data/nursing notes/ICU care reviewed in detail note reviewed and edited care discussed with RN and RT ICU time spent 40 minutes Critical Care - Subjective Interval Events: care noted renal noted iv fluids adjusted acidosis resolved Condition: critical EKG Rhythm: Sinus Rhythm I&O: Intake and Output 04/02/19 04/03/19 19:00 07:00 Intake Total 1171.5 ml 2659.7 ml Output Total 300 ml 800 ml Balance 871.5 ml 1859.7 ml Intake IV Total 1171.5 ml 2659.7 ml Output Urine Total 300 ml 800 ml # Voids 1 1 Critical Care - Objective Last 24 Hour Vital Signs Date Time Temp Pulse Resp B/P (MAP) Pulse Ox O2 Delivery O2 Flow Rate FiO2 04/03/19 08:00 99.0 98 17 130/62 (84) 99 04/03/19 07:00 98 20 121/67 (85) 100 04/03/19 06:00 83 19 125/64 (84) 100 04/03/19 05:00 84 17 116/76 (89) 100 04/03/19 04:00 82 04/03/19 04:00 98.5 82 18 128/75 (92) 97 04/03/19 04:00 Room Air 04/03/19 03:00 84 20 137/74 (95) 100 04/03/19 02:00 84 18 102/88 (93) 99 04/03/19 01:00 85 21 137/82 (100) 100 04/03/19 00:00 98.2 89 27 131/83 (99) 100 04/03/19 00:00 Room Air 04/03/19 00:00 87 04/02/19 23:00 86 16 126/83 (97) 100 04/02/19 22:00 87 19 138/81 (100) 100 04/02/19 21:00 84 21 126/75 (92) 100 04/02/19 20:00 Room Air 04/02/19 20:00 90 04/02/19 20:00 97.4 93 21 113/72 (86) 100 04/02/19 19:00 92 16 118/83 (95) 04/02/19 18:00 93 16 104/80 (88) 100 04/02/19 17:00 92 16 133/79 (97) 100 04/02/19 16:35 Room Air 04/02/19 16:00 87 17 115/81 (92) 100 04/02/19 15:45 97.3 86 21 122/88 100 Room Air 04/02/19 15:30 97.6 92 16 126/76 (93) 100 04/02/19 15:07 97.3 86 21 122/88 100 Room Air 04/02/19 13:07 100 16 Room Air 04/02/19 13:06 97.3 89 17 119/82 99 Room Air 04/02/19 10:07 97.3 100 16 121/89 100 04/02/19 08:58 97.3 100 20 128/86 (100) 100 Labs: Laboratory Tests Test 04/02/19 09:40 04/02/19 09:55 04/02/19 10:10 04/02/19 10:40 Lactic Acid Level 3.20 mmol/L (0.4-2.0) H Arterial Blood pH 7.352 (7.350-7.450) Arterial Blood Partial Pressure CO2 42.0 mmHg (35.0-45.0) Arterial Blood Partial Pressure O2 91.0 mmHg (75.0-100.0) Arterial Blood HCO3 22.8 mmol/L (22.0-26.0) Arterial Blood Oxygen Saturation 95.8 % (95-100) Arterial Blood Base Excess -2.7 (-2-2) L Ok Test Positive White Blood Count 12.1 K/UL (4.8-10.8) H Red Blood Count 4.86 M/UL (4.70-6.10) Hemoglobin 14.1 G/DL (14.2-18.0) L Hematocrit 45.7 % (42.0-52.0) Mean Corpuscular Volume 94 FL (80-99) Mean Corpuscular Hemoglobin 29.1 PG (27.0-31.0) Mean Corpuscular Hemoglobin Concent 30.9 G/DL (32.0-36.0) L Red Cell Distribution Width 15.3 % (11.6-14.8) H Platelet Count 250 K/UL (150-450) Mean Platelet Volume 7.4 FL (6.5-10.1) Neutrophils (%) (Auto) 79.6 % (45.0-75.0) H Lymphocytes (%) (Auto) 13.5 % (20.0-45.0) L Monocytes (%) (Auto) 6.0 % (1.0-10.0) Eosinophils (%) (Auto) 0.2 % (0.0-3.0) Basophils (%) (Auto) 0.8 % (0.0-2.0) Sodium Level 152 MMOL/L (136-145) H Potassium Level 5.9 MMOL/L (3.5-5.1) H Chloride Level 110 MMOL/L (98-107) H Carbon Dioxide Level 27 MMOL/L (21-32) Anion Gap 15 mmol/L (5-15) Blood Urea Nitrogen 173 mg/dL (7-18) H Creatinine 4.2 MG/DL (0.55-1.30) H Estimat Glomerular Filtration Rate 17.3 mL/min (>60) Glucose Level 688 MG/DL (74-106) *H Hemoglobin A1c 7.7 % (4.3-6.0) H Osmolality 426 mOsm/kg (297-317) H Calcium Level 9.7 MG/DL (8.5-10.1) Magnesium Level 4.3 MG/DL (1.8-2.4) H Total Bilirubin 0.5 MG/DL (0.2-1.0) Aspartate Amino Transf (AST/SGOT) 13 U/L (15-37) L Alanine Aminotransferase (ALT/SGPT) 18 U/L (12-78) Alkaline Phosphatase 105 U/L (46-116) Troponin I 0.003 ng/mL (0.000-0.056) Total Protein 9.1 G/DL (6.4-8.2) H Albumin 4.2 G/DL (3.4-5.0) Globulin 4.9 g/dL Albumin/Globulin Ratio 0.9 (1.0-2.7) L Acetone Level Positive-small (NEGATIVE) Urine Color Yellow Urine Appearance Clear Urine pH 5 (4.5-8.0) Urine Specific [place] 1.025 (1.005-1.035) Urine Protein 2+ (NEGATIVE) H Urine Glucose (UA) 3+ (NEGATIVE) H Urine Ketones 2+ (NEGATIVE) H Urine Blood Negative (NEGATIVE) Urine Nitrite Negative (NEGATIVE) Urine Bilirubin Negative (NEGATIVE) Urine Urobilinogen Normal MG/DL (0.0-1.0) Urine Leukocyte Esterase Negative (NEGATIVE) Urine RBC 0-2 /HPF (0 - 0) H Urine WBC 0-2 /HPF (0 - 0) Urine Squamous Epithelial Cells Few /LPF (NONE/OCC) Urine Bacteria Occasional /HPF (NONE) Test 04/02/19 11:40 04/02/19 20:15 04/02/19 22:20 04/03/19 04:00 Lactic Acid Level 2.40 mmol/L (0.66-2.22) H 1.60 mmol/L (0.4-2.0) Sodium Level 166 MMOL/L (136-145) #*H 160 MMOL/L (136-145) H Potassium Level 3.8 MMOL/L (3.5-5.1) 3.9 MMOL/L (3.5-5.1) Chloride Level 129 MMOL/L (98-107) H 126 MMOL/L (98-107) H Carbon Dioxide Level 30 MMOL/L (21-32) 27 MMOL/L (21-32) Anion Gap 7 mmol/L (5-15) 8 mmol/L (5-15) Blood Urea Nitrogen 146 mg/dL (7-18) H 120 mg/dL (7-18) H Creatinine 2.9 MG/DL (0.55-1.30) H 2.5 MG/DL (0.55-1.30) H Estimat Glomerular Filtration Rate 26.5 mL/min (>60) 31.5 mL/min (>60) Glucose Level 24 MG/DL (74-106) #*L 150 MG/DL (74-106) #H Hemoglobin A1c 7.8 % (4.3-6.0) H Calcium Level 8.9 MG/DL (8.5-10.1) 8.2 MG/DL (8.5-10.1) L Urine Random Sodium 27 mmol/L (20-110) Urine Creatinine 109.6 MG/DL (30.0-125.0) White Blood Count 15.9 K/UL (4.8-10.8) H Red Blood Count 3.38 M/UL (4.70-6.10) L Hemoglobin 9.7 G/DL (14.2-18.0) #L Hematocrit 31.4 % (42.0-52.0) #L Mean Corpuscular Volume 93 FL (80-99) Mean Corpuscular Hemoglobin 28.6 PG (27.0-31.0) Mean Corpuscular Hemoglobin Concent 30.8 G/DL (32.0-36.0) L Red Cell Distribution Width 14.7 % (11.6-14.8) Platelet Count 215 K/UL (150-450) Mean Platelet Volume 7.2 FL (6.5-10.1) Neutrophils (%) (Auto) 78.1 % (45.0-75.0) H Lymphocytes (%) (Auto) 14.6 % (20.0-45.0) L Monocytes (%) (Auto) 5.6 % (1.0-10.0) Eosinophils (%) (Auto) 1.1 % (0.0-3.0) Basophils (%) (Auto) 0.5 % (0.0-2.0) Phosphorus Level 2.4 MG/DL (2.5-4.9) L Total Bilirubin 0.4 MG/DL (0.2-1.0) Aspartate Amino Transf (AST/SGOT) 14 U/L (15-37) L Alanine Aminotransferase (ALT/SGPT) 15 U/L (12-78) Alkaline Phosphatase 67 U/L (46-116) Total Protein 6.3 G/DL (6.4-8.2) #L Albumin 2.9 G/DL (3.4-5.0) L Globulin 3.4 g/dL Albumin/Globulin Ratio 0.9 (1.0-2.7) L Objective: GENERAL: NAD; in bed HEENT: Fairly negative. Extraocular movements are grossly intact. Oropharynx is moist. No thrush. NECK: Supple. No adenopathy. No jugular venous distention. LUNGS: Fairly clear and symmetric. No rhonchi or wheezes. CARDIAC: S1, S2. Regular rate and rhythm without murmurs, rubs, or gallops. ABDOMEN: Soft, nontender, and nondistended. EXTREMITIES: No cyanosis, clubbing, or edema. NEUROLOGIC: focal weakness; dysarthric SKIN: noted reviewed and edited Micro: Microbiology Date/Time Source Procedure Growth Status 04/02/19 12:00 Rectum Received Accucheck: 80 Jadon Muse MD Apr 03, 2019 08:36
--- NOTE | 2019-04-03 10:00 | NUR ---
NURSE NOTES: Pt was seen by Dr Muse. Order was received to discontinue Insulin drip, place pt on Levemir 10units QHS, Sliding Scale high-resistance, and CCHO Med diet. VS remain stable.
[2019-04-03] MEDS: NovoLOG Insulin Flexpen SUBQ SCH ×3 (11:30→20:40)
--- NOTE | 2019-04-03 11:33 | NUR ---
Social Work This SW received a notification on 04/02/2019 and met w/ pt on 04/03/2019. Pt presents as awake, guarded and labile. SW introduced self to pt. Pt stated "I don't want to talk to you." When SW asked pt in regards to his current income, pt stated "It's none of your business." Pt stated that he was at an unknown program for a month at [address] [place] [address]. SW was unable to verify such program/residence. Pt stated "I don't want any program. I am not going back there." When SW asked for the detail of the program, pt stated "You know that already." SW asked pt his placement upon DC, pt stated "I have a place to go. I won't tell you." Pt declined to disclose his post dc placement/plan. SW recommended Advance Directive or POLST but pt declined to discuss. Pt stated that the emergency contact is his friend, Nidia Parra [phone] but pt declined to provide a verbal consent to contact her in regards to his current hospitalization. Pt did not provide an additional contact information. Pt declined to answer further questions. SW will continue to F/U as needed.
--- NOTE | 2019-04-03 11:54 | Diagnostic Imaging Report ---
Indication: Left foot weakness and pain Technique: Grayscale and duplex images of the bilateral lower extremity veins Comparison: none Findings: Bilaterally, grayscale and duplex images demonstrate no evidence of intraluminal thrombus. Normal phasic Doppler waveforms, demonstrating normal augmentation response and no evidence of valvular insufficiency. Impression: Negative for lower extremity deep venous thrombosis bilaterally
--- NOTE | 2019-04-03 12:30 | NUR ---
NURSE NOTES: dental laboratory technician apprentice is at bedside for venous duplex of lower extremities. VS remain stable while pt is on room air; remains afebrile.
--- NOTE | 2019-04-03 14:00 | NUR ---
NURSE NOTES: Pt was seen by Dr Arreola. Order received/noted to switch IV fluid to KCL 30meq in 0.45NS at 225ml/hour. Last blood glucose of 175 was covered by Sliding Scale Insulin 6 units SQ. VS remain stable.
--- NOTE | 2019-04-03 14:43 | NUR ---
CASE MANAGEMENT: INITIAL REVIEW 63 YO M LAURENT FROM HOME CC: BS ON SCENE >500 PMHx: HTN. DKA. CVA. HEP C. SI:HYPERGLYCEMIA T 97.3 HR 100 RR 20 B/P 128/86 SATS 100% ON RA. LABS: WBC 12.1 NA 152 K 5.9 CL 110 BUN 173 CR 4.3 GLU 688 HA1C 7.7 MG 4.3 AST 13 ACETONE (+) ABGs BE -2.7 IS: NS BOLUS X1 HUMAN INSULIN IV 15 UNITS INSULIN DRIP INITIATED PATIENT ADMITTED TO ICU 04/02/2019 @ 1154 DCP: PATIENT TO BE DISCHARGED TO HOME ONCE MEDICALLY CLEARED. PLAN OF CARE: Monitor blood sugars IV HYDRATION RENAL EVAL Addendum: 04/03/19 at 1532 by Lori West CM INTERQUAL MET
[2019-04-03] MEDS: Potassium Chloride 30 MEQ in 1/2 NS 1000ml 1,000 ML IV SCH ×3 (15:26→23:51)
--- NOTE | 2019-04-03 15:30 | NUR ---
NURSE NOTES: Pt was administered Tylenol per PRN order for moderate pain 5/10 on left leg. VS remain stable. Pt is awake, alert, watching TV.
--- NOTE | 2019-04-03 15:44 | NUR ---
NURSE NOTES: Order in place to transfer pt to Tele per Dr Muse. Charge nurse aware. Awaiting for room/bed availability/placement.
--- NOTE | 2019-04-03 16:30 | Consultation ---
DATE OF CONSULTATION: 04/03/2019 NEPHROLOGY CONSULTATION CONSULTING PHYSICIAN: Kwan Arreola M.D. REASON FOR CONSULTATION: Acute kidney injury and electrolyte imbalance associated with diabetic ketoacidosis. HISTORY OF PRESENT ILLNESS: The patient is a 63-year-old male with diabetes and prior CVA, presents with some confusion, diabetic ketoacidosis, and abnormal labs in the ICU. I adjusted his intravenous fluids last night when I reviewed his situation. PAST MEDICAL HISTORY: There is a history of hypertension, CVA, and hepatitis C. PAST SURGICAL HISTORY: Appendix. MEDICATIONS: Prior to admission medications, the patient cannot tell me, but he has NovoLog, apparently sliding scale Levemir at 12 units every 12 hours, metformin 500 mg twice a day, and Januvia 100 mg daily. HABITS: The patient is a cigarette smoker and intermittent alcohol drinker. SYSTEM REVIEW: HEAD, EYES, EARS, NOSE, AND THROAT: Vision and hearing is good. ENDOCRINE: Diabetes as above. He is not aware of any thyroid disease. PULMONARY: He is smoker. Denies shortness of breath or chronic cough. CARDIAC: Denies AL or chest pain. GASTROINTESTINAL: Recent nausea and vomiting as above. No known GI bleeding. GENITOURINARY: He is voiding well. No dysuria. NEUROLOGIC: History of CVA with left-sided weakness. MUSCULOSKELETAL: He is complaining of left leg pain. PHYSICAL EXAMINATION: GENERAL: The patient is an alert, thin man sitting up in bed eating. VITAL SIGNS: Temperature 98.4, pulse 98, respirations 20, pulse is also 111 repeat, blood pressure 142/84. HEAD, EYES, EARS, NOSE AND THROAT: Sclerae are nonicteric. Ocular motions intact in all directions. Oral mucosa is dry. NECK: No adenopathy or thyroid enlargement. LUNGS: Clear. HEART: Rhythm is regular and tachycardic. No murmur. ABDOMEN: Soft without organomegaly. EXTREMITIES: No edema. There is muscle wasting. NEUROLOGIC: He is alert and responsive. Ocular motions intact in all directions. Smile is symmetric. He has some left-sided weakness. LABORATORY DATA: Pertinent labs on admission, sodium 152, potassium 5.9, chloride 110, CO2 27, BUN 176, and creatinine 4.2. Glucose 688. Lactic acid 3.2, 2.4. Most recent is sodium 160, potassium 3.9, chloride 126, CO2 27, BUN 120, and creatinine 2.5. Glucose 150. Phosphorus is 2.4. Albumin is 2.9. Urinalysis did show positive protein, glucose, and ketones. Urine sodium is 27. Urine creatinine 109. IMPRESSION: 1. Diabetes with hyperglycemia and some ketoacidosis. 2. Acute kidney injury likely from dehydration. 3. Hypernatremia secondary to dehydration. 4. Possible underlying diabetic nephropathy. 5. History of CVA. 6. Moderate protein-calorie malnutrition. PLAN: The patient will get vigorous hydration, monitoring of his glucose, and serial electrolytes. ICU orders have been updated. Kwan Arreola M.D. DR: VAL JOB#: [id number] CC:
--- NOTE | 2019-04-03 17:04 | NUR ---
NURSE NOTES: Urine specimen for collected and sent to lab per MD order, handed to mill labor supervisor who was at bedside drawing blood.
[2019-04-03 17:22] LABS: ANION GAP 9 mmol/L (5-15); BLOOD UREA NITROGEN 84 mg/dL (7-18); CARBON DIOXIDE 24 MMOL/L (21-32); CHLORIDE 123 MMOL/L (98-107); CREATININE 2.3 MG/DL (0.55-1.30); POTASSIUM 4.9 MMOL/L (3.5-5.1); SODIUM 156 MMOL/L (136-145)
--- NOTE | 2019-04-03 18:30 | NUR ---
NURSE NOTES: Pt was cleaned, gown/bed linens were changed. VS remain stable; remains afebrile. Denies any pain or discomfort at this time.
--- NOTE | 2019-04-03 19:25 | NUR ---
HAND-OFF: Report given to Gerardo BROUSSARD. VS remain stable. Endorsed plan of care.
--- NOTE | 2019-04-03 19:32 | NUR ---
NURSE NOTES: SBAR from Pham BROUSSARD. Patient AAOX3/4. NSR on the monitor, 115/95, HR 91 NSR, 100% Spo2 while on room, able to make needs known. Afebrile and cool to touch. Semi-fowlers position, no distress. PIV lines, intact and patent. 1/2NS w/30KCL at 225ml/hr. Call light within reach, bed in lowest position, bed in lowest. Patient able to self reposition. Currently watching TV.
--- NOTE | 2019-04-03 20:00 | NUR ---
NURSE NOTES: Patient refusing SCDs because he states his legs hurts more on left than right.
[2019-04-03] MEDS: Levemir Flexpen SUBQ SCH (20:42)
--- NOTE | 2019-04-03 21:00 | NUR ---
NURSE NOTES: Glucose noted to be 254, coverage given along side with scheduled Levemir. Patient remains awake and oriented at this time. IV lines remains patent and intact. NAD at this time.
--- NOTE | 2019-04-03 22:00 | NUR ---
NURSE NOTES: Remains awake and oriented. VS remains stable, no acute distress, afebrile. All due meds given.
--- NOTE | 2019-04-03 23:00 | NUR ---
NURSE NOTES: Patient still refusing SCDs because he states his legs hurts more on left than right.
[2019-04-04] VITALS (11 sets, daily range): BP systolic 107–149; BP diastolic 43–89
--- NOTE | 2019-04-04 | NUR ---
NURSE NOTES: Patient awake and oriented at this time. NSR on the monitor. NAD. Cool to the touch, afebrile. No new changes.
--- NOTE | 2019-04-04 02:00 | NUR ---
NURSE NOTES: Patient awake and oriented at this time. NSR on the monitor. NAD. Cool to the touch, afebrile. No new changes.
--- NOTE | 2019-04-04 04:00 | NUR ---
NURSE NOTES: Patient cleaned and oral care given. Patient awake and oriented at this time. NSR on the monitor. NAD. Cool to the touch, afebrile. Blood drawn and sent to lab.
[2019-04-04] MEDS: Potassium Chloride 30 MEQ in 1/2 NS 1000ml 1,000 ML IV SCH (04:21)
[2019-04-04] MEDS: NovoLOG Insulin Flexpen SUBQ SCH ×4 (05:38→22:32)
--- NOTE | 2019-04-04 06:00 | NUR ---
NURSE NOTES: Remains awake and oriented. VS remains stable, no acute distress, afebrile. All due meds given. Patient still refusing SCDs because he states his legs hurts more on left than right.
[2019-04-04 06:03] LABS: BASOPHILS % (AUTO) 0.9 % (0.0-2.0); EOSINOPHILS % (AUTO) 1.4 % (0.0-3.0); HEMATOCRIT 26.8 % (42.0-52.0); HEMOGLOBIN 8.4 G/DL (14.2-18.0); LYMPHOCYTES % (AUTO) 20.8 % (20.0-45.0); MEAN CORPUSCULAR VOLUME 92 FL (80-99); MONOCYTES % (AUTO) 6.3 % (1.0-10.0); NEUTROPHILS % (AUTO) 70.6 % (45.0-75.0); PLATELET COUNT 156 K/UL (150-450); RED BLOOD COUNT 2.91 M/UL (4.70-6.10); RED CELL DISTRIBUTION WIDTH 15.1 % (11.6-14.8); WHITE BLOOD COUNT 11.4 K/UL (4.8-10.8)
[2019-04-04 06:22] LABS: PHOSPHORUS 1.7 MG/DL (2.5-4.9)
[2019-04-04 06:31] LABS: ANION GAP 9 mmol/L (5-15); BLOOD UREA NITROGEN 53 mg/dL (7-18); CALCIUM 8.2 MG/DL (8.5-10.1); CARBON DIOXIDE 20 MMOL/L (21-32); CHLORIDE 125 MMOL/L (98-107); CREATININE 1.9 MG/DL (0.55-1.30); SODIUM 154 MMOL/L (136-145)
--- NOTE | 2019-04-04 07:18 | NUR ---
NURSE NOTES: Report received from BOBO Carrillo. Patient came from ICU. AOx3. In RA. Denies any pain or SOB. L FA 20g IV running 1/2 NS with 30KCL@ 225mL/hr. Bed on lowest position, side rails upx2, brakes engaged. Call light within easy each.
--- NOTE | 2019-04-04 07:20 | NUR ---
NURSE NOTES: IV fluid and lab results communicated with primary MD. IV fluid stopped. Both IV sites tender and swollen, removed.
[2019-04-04] MEDS: Pantoprazole Inj IVP SCH (09:06)
--- NOTE | 2019-04-04 12:24 | NUR ---
PARKING INSPECTOR PROGRESS NOTE PT has transferred to [facility]. SW met w/ pt to assess his mood and for any needs. Pt continues to present as guarded. Pt recognized SW and stated "You are the social work program coordinator. I will see you later. Dayami". SW attempted to discuss pt's mood and needs/concern but pt continued to say "Dayami Stock." Pt did not answer when SW asked pt in regards to his mood/condition. Pt denied homelessness when SW asked previous day. Pt's living situation is still unknown. Signed: 04/04/19 at 1229 by ESTEVAN DIAZ <Co-Signature Required>
--- NOTE | 2019-04-04 13:20 | NUR ---
RADIOLOGY DEPT., CHEST X-RAY DONE.-P.DYE
--- NOTE | 2019-04-04 13:23 | Critical Care Progress Note ---
Assessment/Plan Assessment/Plan IMPRESSION: 1. Diabetic ketoacidosis. 2. Profound hypernatremia. 3. Acute possible chronic renal failure. 4. Profound hyperglycemia. 5. Hyperkalemia. 6. History of hypertension. 7. leukocytosis 8. anemia 9. prior CVA with focal weakness PLAN ID evaluation noted hypotonic fluids per renal; changed fluid status with increased K monitor lytes and renal parameters close follow up for change renal follow up appreciated DVT prophylaxis impression, plan, and exam edited and reviewed in detail care discussed with wire twisting machine operator - Subjective Interval Events: transferred out of ICU stable no distress renal parameters Condition: improving EKG Rhythm: Sinus Rhythm I&O: Intake and Output 04/03/19 04/04/19 19:00 07:00 Intake Total 2525.4 ml 2923.0 ml Output Total 895 ml 1800 ml Balance 1630.4 ml 1123.0 ml Intake Oral 500 ml 100 ml IV Total 2025.4 ml 2823.0 ml Output Urine Total 895 ml 1800 ml Critical Care - Objective Last 24 Hour Vital Signs Date Time Temp Pulse Resp B/P (MAP) Pulse Ox O2 Delivery O2 Flow Rate FiO2 04/04/19 12:00 98.9 97 20 122/83 (96) 99 04/04/19 07:00 88 18 132/80 (97) 99 04/04/19 06:00 85 16 132/85 (101) 99 04/04/19 05:00 95 18 145/82 (103) 100 04/04/19 04:00 85 04/04/19 04:00 98.8 89 20 110/47 (68) 100 04/04/19 04:00 Room Air 04/04/19 03:00 90 19 112/80 (91) 100 04/04/19 02:00 92 20 107/89 (95) 100 04/04/19 01:00 91 18 112/83 (93) 100 04/04/19 00:00 Room Air 04/04/19 00:00 99.2 92 19 115/43 (67) 100 04/04/19 00:00 92 04/03/19 23:00 93 22 104/77 (86) 100 04/03/19 22:00 91 18 99/56 (70) 100 04/03/19 21:00 87 18 95/64 (74) 100 04/03/19 20:00 98.7 88 16 92/65 (74) 100 04/03/19 20:00 Room Air 04/03/19 20:00 87 04/03/19 19:00 95 20 115/95 (102) 98 04/03/19 18:00 98.5 99 20 150/78 (102) 100 04/03/19 17:00 95 20 132/75 (94) 98 04/03/19 16:00 100 22 123/71 (88) 100 04/03/19 16:00 Room Air 04/03/19 16:00 92 04/03/19 15:58 98.4 04/03/19 15:00 105 21 135/91 (106) 100 04/03/19 14:00 107 21 121/76 (91) 100 Labs: Laboratory Tests Test 04/03/19 16:55 04/04/19 04:55 Sodium Level 156 MMOL/L (136-145) H 154 MMOL/L (136-145) H Potassium Level 4.9 MMOL/L (3.5-5.1) 5.0 MMOL/L (3.5-5.1) Chloride Level 123 MMOL/L (98-107) H 125 MMOL/L (98-107) H Carbon Dioxide Level 24 MMOL/L (21-32) 20 MMOL/L (21-32) L Anion Gap 9 mmol/L (5-15) 9 mmol/L (5-15) Blood Urea Nitrogen 84 mg/dL (7-18) H 53 mg/dL (7-18) H Creatinine 2.3 MG/DL (0.55-1.30) H 1.9 MG/DL (0.55-1.30) H Estimat Glomerular Filtration Rate 34.8 mL/min (>60) 43.4 mL/min (>60) Glucose Level 429 MG/DL (74-106) #H 133 MG/DL (74-106) #H Calcium Level 8.0 MG/DL (8.5-10.1) L 8.2 MG/DL (8.5-10.1) L White Blood Count 11.4 K/UL (4.8-10.8) H Red Blood Count 2.91 M/UL (4.70-6.10) L Hemoglobin 8.4 G/DL (14.2-18.0) L Hematocrit 26.8 % (42.0-52.0) L Mean Corpuscular Volume 92 FL (80-99) Mean Corpuscular Hemoglobin 28.9 PG (27.0-31.0) Mean Corpuscular Hemoglobin Concent 31.4 G/DL (32.0-36.0) L Red Cell Distribution Width 15.1 % (11.6-14.8) H Platelet Count 156 K/UL (150-450) Mean Platelet Volume 7.9 FL (6.5-10.1) Neutrophils (%) (Auto) 70.6 % (45.0-75.0) Lymphocytes (%) (Auto) 20.8 % (20.0-45.0) Monocytes (%) (Auto) 6.3 % (1.0-10.0) Eosinophils (%) (Auto) 1.4 % (0.0-3.0) Basophils (%) (Auto) 0.9 % (0.0-2.0) Phosphorus Level 1.7 MG/DL (2.5-4.9) L Magnesium Level 2.2 MG/DL (1.8-2.4) Objective: GENERAL: NAD; in bed HEENT: Fairly negative. Extraocular movements are grossly intact. Oropharynx is moist. No thrush. NECK: Supple. No adenopathy. No jugular venous distention. LUNGS: Fairly clear and symmetric. No rhonchi or wheezes. CARDIAC: S1, S2. Regular rate and rhythm without murmurs, rubs, or gallops. ABDOMEN: Soft, nontender, and nondistended. EXTREMITIES: No cyanosis, clubbing, or edema. NEUROLOGIC: focal weakness; dysarthric SKIN: noted reviewed and edited Micro: Microbiology Date/Time Source Procedure Growth Status 04/02/19 12:00 Nasal Nares MRSA Culture - Final NO METHICILLIN RESISTANT STAPH AUREUS... Complete 04/03/19 16:50 Urine,Clean Catch Urine Culture - Preliminary Resulted 04/02/19 12:00 Rectum VRE Culture - Final NO VANCOMYCIN RESISTANT ENTEROCOCCUS ... Complete 04/02/19 12:00 Rectum - Final NO CARBAPENEM-RESISTANT ENTEROBACTERI... Complete Accucheck: 196 Jadon Muse MD Apr 04, 2019 13:23
--- NOTE | 2019-04-04 14:32 | NUR ---
CASE MANAGEMENT:REVIEW 04/04/19 SI: DKA. HYPERNATREMIA 98.9 97 20 122/83 99% ON RA WBC+11.4 H/H-8.4/26.8 NAQ+154 BUN+53 CR+1.9 PHOS-1.7 IS: IVF@150/HR LEVEMIR SQ QHS IV PROTONIX QD : TELEMETRY STATUS
--- NOTE | 2019-04-04 14:40 | Diagnostic Imaging Report ---
Indication: Cough Comparison: None A single view chest radiograph was obtained. Findings: No definite infiltrate or pulmonary vascular congestion identified. The heart is enlarged. The aorta is mildly enlarged consistent with atherosclerotic vascular disease. The bones are osteopenic. Impression: No acute disease
--- NOTE | 2019-04-04 14:52 | Nephrology Progress Note ---
Assessment/Plan Problem List: (1) Hypophosphatemia (2) Hypernatremia (3) Hepatitis C (4) DKA, type 1 (5) SUDHAKAR (acute kidney injury) Plan gradually improving, iv adjusted, replace phos Subjective Constitutional: Reports: weakness HEENT: Reports: no symptoms Genitourinary: Reports: no symptoms Neurologic/Psychiatric: Reports: pre-existing deficit Objective Objective Last 24 Hour Vital Signs Date Time Temp Pulse Resp B/P (MAP) Pulse Ox O2 Delivery O2 Flow Rate FiO2 04/04/19 12:00 98.9 97 20 122/83 (96) 99 04/04/19 08:00 Room Air 04/04/19 07:00 88 18 132/80 (97) 99 04/04/19 06:00 85 16 132/85 (101) 99 04/04/19 05:00 95 18 145/82 (103) 100 04/04/19 04:00 85 04/04/19 04:00 98.8 89 20 110/47 (68) 100 04/04/19 04:00 Room Air 04/04/19 03:00 90 19 112/80 (91) 100 04/04/19 02:00 92 20 107/89 (95) 100 04/04/19 01:00 91 18 112/83 (93) 100 04/04/19 00:00 Room Air 04/04/19 00:00 99.2 92 19 115/43 (67) 100 04/04/19 00:00 92 04/03/19 23:00 93 22 104/77 (86) 100 04/03/19 22:00 91 18 99/56 (70) 100 04/03/19 21:00 87 18 95/64 (74) 100 04/03/19 20:00 98.7 88 16 92/65 (74) 100 04/03/19 20:00 Room Air 04/03/19 20:00 87 04/03/19 19:00 95 20 115/95 (102) 98 04/03/19 18:00 98.5 99 20 150/78 (102) 100 04/03/19 17:00 95 20 132/75 (94) 98 04/03/19 16:00 100 22 123/71 (88) 100 04/03/19 16:00 Room Air 04/03/19 16:00 92 04/03/19 15:58 98.4 04/03/19 15:00 105 21 135/91 (106) 100 Intake and Output 04/03/19 04/04/19 19:00 07:00 Intake Total 2525.4 ml 2923.0 ml Output Total 895 ml 1800 ml Balance 1630.4 ml 1123.0 ml Intake Oral 500 ml 100 ml IV Total 2025.4 ml 2823.0 ml Output Urine Total 895 ml 1800 ml Laboratory Tests 04/03/19 16:55: Sodium Level 156H, Potassium Level 4.9, Chloride Level 123H, Carbon Dioxide Level 24, Anion Gap 9, Blood Urea Nitrogen 84H, Creatinine 2.3H, Estimat Glomerular Filtration Rate 34.8, Glucose Level 429#H, Calcium Level 8.0L 04/04/19 04:55: Sodium Level 154H, Potassium Level 5.0, Chloride Level 125H, Carbon Dioxide Level 20L, Anion Gap 9, Blood Urea Nitrogen 53H, Creatinine 1.9H, Estimat Glomerular Filtration Rate 43.4, Glucose Level 133#H, Calcium Level 8.2L, White Blood Count 11.4H, Red Blood Count 2.91L, Hemoglobin 8.4L, Hematocrit 26.8L, Mean Corpuscular Volume 92, Mean Corpuscular Hemoglobin 28.9, Mean Corpuscular Hemoglobin Concent 31.4L, Red Cell Distribution Width 15.1H, Platelet Count 156 , Mean Platelet Volume 7.9, Neutrophils (%) (Auto) 70.6, Lymphocytes (%) (Auto) 20.8, Monocytes (%) (Auto) 6.3, Eosinophils (%) (Auto) 1.4, Basophils (%) (Auto ) 0.9, Phosphorus Level 1.7L, Magnesium Level 2.2 Height (Feet): 5 Height (Inches): 6.00 Weight (Pounds): 98 General Appearance: no apparent distress, alert EENT: other - dry mouth Neck: normal alignment Cardiovascular: normal rate Respiratory/Chest: lungs clear Abdomen: non tender Extremities: no edema Neurologic: motor weakness Kwan Arreola MD Apr 04, 2019 14:52
[2019-04-04] MEDS: SODIUM PHOSPHATE IV SCH ×3 (16:34→23:51)
[2019-04-04] MEDS: 1/2 NS IV SCH ×3 (16:34→23:51)
--- NOTE | 2019-04-04 17:00 | Consultation ---
DATE OF CONSULTATION: 04/04/2019 INFECTIOUS DISEASES CONSULTATION CONSULTING PHYSICIAN: Regina Santamaria M.D. REFERRING PHYSICIAN: Jadon Muse M.D. REASON FOR CONSULTATION: Possible pneumonia. HISTORY OF PRESENTING ILLNESS: This is a 63-year-old gentleman with history of diabetes, hypertension, CVA who had not been taking insulin came in lethargic and confused. He was started on insulin drip. An Infectious Diseases consultation has been obtained for antibiotics. PAST MEDICAL HISTORY: 1. History of diabetes. 2. Hypertension. 3. CVA. 4. Hepatitis C. SOCIAL HISTORY: He is a smoker. He used to drink alcohol. He quit four months ago. No history of drug use. FAMILY HISTORY: Noncontributory. REVIEW OF SYSTEMS: RESPIRATORY: No fever or chills. He has cough. No shortness of breath. No chest pain. CARDIAC: No chest pain. No palpitation. No dizziness. No syncope . GASTROINTESTINAL: No nausea. No vomiting. No abdominal pain or diarrhea. MEDICATIONS: As an inpatient, he is on insulin, Protonix, Tylenol, Mylanta. ALLERGIES: No known drug allergies. PHYSICAL EXAMINATION: VITAL SIGNS: Temperature of 98.8, T-max of 99.2, pulse 88, respiratory rate 18, blood pressure 132/80, O2 saturation of 99% HEENT: Pupils are equally reactive to light and accommodation. Mouth appears clean without thrush. NECK: Supple. No adenopathy. No JVD. CARDIOVASCULAR: Regular rate and rhythm. No murmurs. LUNGS: Clear to auscultation bilaterally. No crackles. No wheezes. ABDOMEN: Soft and nontender. No organomegaly. EXTREMITIES: No cyanosis, no clubbing, no edema. LABORATORY AND DIAGNOSTIC DATA: On 04/03/2019, white count was 16.9 and white count is 11.4 now, hemoglobin 8.4, hematocrit 26.8, MCV 96, platelets 156 with neutrophils of 70%. Sodium 154, potassium 5, chloride 125, bicarb 20, BUN 53, creatinine 1.9. Creatinine was 2.5 on 04/03/2019. Glucose 133, glucose was 429 on 04/03/2019. Total bilirubin 0.4, AST 14, ALT 15, and alkaline phosphatase 67. Total protein 6.3. Albumin 2.9. UA showing 0 to 2 white cells. Urine cultures are pending. Rectal swab was negative for VRE. Nasal swab was negative for MRSA. Ultrasound of the legs was negative for DVT bilaterally. ASSESSMENT: This is a 63-year-old gentleman with history of diabetes, hypertension, CVA, hepatitis C who comes in with and is found to have. 1. Diabetic ketoacidosis. 2. Fever has resolved. 3. Leukocytosis could be reactive has resolved. 4. Hepatitis C. 5. We would like to rule out pneumonia as a possibility. PLAN: 1. We will continue off antibiotics. 2. We will order chest x-ray. 3. We will follow up cultures. I would like to thank, Dr. Muse for this consultation. Regina Santamaria M.D. DR: Zuleyma JOB#: [id number] CC: Jadon Muse M.D.; Fax#: [phone]
--- NOTE | 2019-04-04 20:00 | NUR ---
NURSE NOTES: Report received from Ollie BROUSSARD. Patient is observed in bed, AOx3-4 with periods of forgetfulness. Respiratory even and unlabored. Bed is in lowest position with side rails up x2 and brakes are engaged. RFA IV line is patent and intact. IVF running at a prescribed rate. Will continue to monitor.
[2019-04-04] MEDS: Levemir Flexpen SUBQ SCH (22:31)
[2019-04-05] VITALS: BP 156/80
--- NOTE | 2019-04-05 | NUR ---
NURSE NOTES: Asleep but arousable by voice. Denies pain at this time. Will continue to monitor.
[2019-04-05] MEDS: 1/2 NS IV SCH ×5 (01:00→16:00)
[2019-04-05] MEDS: SODIUM PHOSPHATE IV SCH ×5 (01:00→16:00)
[2019-04-05 04:00] VITALS: BP_SYST 138; BP_SYST 149; BP_DIAS 77; BP_DIAS 79
[2019-04-05] MEDS: NovoLOG Insulin Flexpen SUBQ SCH ×4 (06:04→21:46)
[2019-04-05 07:22] LABS: BASOPHILS % (AUTO) 0.8 % (0.0-2.0); EOSINOPHILS % (AUTO) 1.8 % (0.0-3.0); HEMATOCRIT 29.1 % (42.0-52.0); LYMPHOCYTES % (AUTO) 20.4 % (20.0-45.0); MEAN CORPUSCULAR VOLUME 92 FL (80-99); MONOCYTES % (AUTO) 6.2 % (1.0-10.0); NEUTROPHILS % (AUTO) 70.8 % (45.0-75.0); PLATELET COUNT 143 K/UL (150-450); RED BLOOD COUNT 3.15 M/UL (4.70-6.10); RED CELL DISTRIBUTION WIDTH 14.4 % (11.6-14.8); WHITE BLOOD COUNT 8.7 K/UL (4.8-10.8)
--- NOTE | 2019-04-05 07:38 | NUR ---
HAND-OFF: Report given to Elizabeth BROUSSARD. Patient is in stable condition. Endorsed plan of care.
--- NOTE | 2019-04-05 07:40 | NUR ---
NURSE NOTES: Received report from Kamala BROUSSARD. Patient is in bed, AOx3-4 with periods of forgetfulness. Breathing is even and unlabored. Bed is in lowest position with side rails up x2 and brakes are engaged for safety. IV's are patent and intact.with IVF running and patient tolerating well. Will continue with the plan of care.
[2019-04-05 07:55] LABS: ANION GAP 9 mmol/L (5-15); BLOOD UREA NITROGEN 33 mg/dL (7-18); CALCIUM 8.3 MG/DL (8.5-10.1); CARBON DIOXIDE 22 MMOL/L (21-32); CHLORIDE 117 MMOL/L (98-107); CREATININE 1.8 MG/DL (0.55-1.30); FERRITIN 42 NG/ML (8-388); PHOSPHORUS 3.3 MG/DL (2.5-4.9); POTASSIUM 4.9 MMOL/L (3.5-5.1); SODIUM 148 MMOL/L (136-145)
[2019-04-05 08:00] VITALS: BP 156/98
[2019-04-05 08:23] LABS: % IRON SATURATION 6 % (15-50); IRON 8 ug/dL (50-175); TOTAL IRON BINDING CAPACITY 143 ug/dL (250-450)
--- NOTE | 2019-04-05 08:35 | Critical Care Progress Note ---
Assessment/Plan Assessment/Plan IMPRESSION: 1. Diabetic ketoacidosis. 2. Profound hypernatremia. 3. Acute possible chronic renal failure. 4. Profound hyperglycemia. 5. Hyperkalemia. 6. History of hypertension. 7. leukocytosis 8. anemia 9. prior CVA with focal weakness PLAN ID evaluation noted hypotonic fluids per renal; improved overall monitor lytes and renal parameters close follow up for change renal follow up appreciated DVT prophylaxis hope to dc in am if stable with HH does not want snf impression, plan, and exam edited and reviewed in detail care discussed with parts delivery driver - Subjective Interval Events: comfortable overall same no distress Condition: improving EKG Rhythm: Sinus Rhythm I&O: Intake and Output 04/04/19 04/05/19 19:00 07:00 Intake Total 840 ml Output Total 1200 ml 1300 ml Balance -360 ml -1300 ml Intake Oral 840 ml Output Urine Total 1200 ml 1300 ml Critical Care - Objective Last 24 Hour Vital Signs Date Time Temp Pulse Resp B/P (MAP) Pulse Ox O2 Delivery O2 Flow Rate FiO2 04/05/19 04:00 98.0 91 20 138/77 (97) 96 04/05/19 03:35 86 04/05/19 00:00 99.0 95 20 156/80 (105) 96 04/04/19 23:27 102 04/04/19 20:55 98.0 85 20 149/79 (102) 96 04/04/19 20:00 Room Air 04/04/19 16:00 85 04/04/19 16:00 98.6 85 20 145/78 (100) 98 04/04/19 16:00 Room Air 04/04/19 12:00 98.9 97 20 122/83 (96) 99 04/04/19 12:00 Room Air 04/04/19 12:00 95 Labs: Laboratory Tests Test 04/05/19 06:25 White Blood Count 8.7 K/UL (4.8-10.8) Red Blood Count 3.15 M/UL (4.70-6.10) L Hemoglobin 9.0 G/DL (14.2-18.0) L Hematocrit 29.1 % (42.0-52.0) L Mean Corpuscular Volume 92 FL (80-99) Mean Corpuscular Hemoglobin 28.7 PG (27.0-31.0) Mean Corpuscular Hemoglobin Concent 31.1 G/DL (32.0-36.0) L Red Cell Distribution Width 14.4 % (11.6-14.8) Platelet Count 143 K/UL (150-450) L Mean Platelet Volume 8.1 FL (6.5-10.1) Neutrophils (%) (Auto) 70.8 % (45.0-75.0) Lymphocytes (%) (Auto) 20.4 % (20.0-45.0) Monocytes (%) (Auto) 6.2 % (1.0-10.0) Eosinophils (%) (Auto) 1.8 % (0.0-3.0) Basophils (%) (Auto) 0.8 % (0.0-2.0) Sodium Level 148 MMOL/L (136-145) H Potassium Level 4.9 MMOL/L (3.5-5.1) Chloride Level 117 MMOL/L (98-107) H Carbon Dioxide Level 22 MMOL/L (21-32) Anion Gap 9 mmol/L (5-15) Blood Urea Nitrogen 33 mg/dL (7-18) H Creatinine 1.8 MG/DL (0.55-1.30) H Estimat Glomerular Filtration Rate 46.2 mL/min (>60) Glucose Level 273 MG/DL (74-106) #H Calcium Level 8.3 MG/DL (8.5-10.1) L Phosphorus Level 3.3 MG/DL (2.5-4.9) Iron Level 8 ug/dL (50-175) L Total Iron Binding Capacity 143 ug/dL (250-450) L Percent Iron Saturation 6 % (15-50) L Unsaturated Iron Binding 135 ug/dL (112-346) Ferritin 42 NG/ML (8-388) Vitamin B12 Level 620 PG/ML (193-986) Folate 15.0 NG/ML (8.6-58.9) Objective: GENERAL: NAD; in bed HEENT: Fairly negative. Extraocular movements are grossly intact. Oropharynx is moist. No thrush. NECK: Supple. No adenopathy. No jugular venous distention. LUNGS: Fairly clear and symmetric. No rhonchi or wheezes. CARDIAC: S1, S2. Regular rate and rhythm without murmurs, rubs, or gallops. ABDOMEN: Soft, nontender, and nondistended. EXTREMITIES: No cyanosis, clubbing, or edema. NEUROLOGIC: focal weakness; dysarthric SKIN: noted reviewed and edited Micro: Microbiology Date/Time Source Procedure Growth Status 04/03/19 09:45 Blood Blood Culture - Preliminary NO GROWTH AFTER 24 HOURS Resulted 04/03/19 09:35 Blood Blood Culture - Preliminary NO GROWTH AFTER 24 HOURS Resulted 04/02/19 12:00 Nasal Nares MRSA Culture - Final NO METHICILLIN RESISTANT STAPH AUREUS... Complete 04/03/19 16:50 Urine,Clean Catch Urine Culture - Preliminary Gram Negative Bacillus 1 Resulted 04/02/19 12:00 Rectum VRE Culture - Final NO VANCOMYCIN RESISTANT ENTEROCOCCUS ... Complete 04/02/19 12:00 Rectum - Final NO CARBAPENEM-RESISTANT ENTEROBACTERI... Complete Accucheck: 215 Jadon Muse MD Apr 05, 2019 08:35
[2019-04-05] MEDS: Pantoprazole Inj IVP SCH (08:54)
[2019-04-05] MEDS ORDERED: 1/2 NS 1000ml IV ONE (11:53)
[2019-04-05 12:00] VITALS: BP 146/67
--- NOTE | 2019-04-05 13:25 | NUR ---
PT EVALUATION NOTE Patient seen for initial evaluation. Patient presents with generalized weakness and pain which impairs patient's ability to perform mobility tasks safely. Patient requires mod assist for bed mobility and mod/max assist for transfers with FWW. Patient with limited standing tolerance and unable to ambulate due to pain L foot with WB. Patient will benefit from skilled inpatient PT intervention to address strength, balance and safety for improved level of functional mobility. Recommend discharge to SNF for further rehab once medically cleared by MD. Recommend FWW for ambulation. Addendum: 04/05/19 at 1434 by SNOW ANN PT Amended: Links added.
--- NOTE | 2019-04-05 14:23 | Infectious Diseases Prog Note ---
Assessment/Plan Assessment/Plan A; 1. Diabetic ketoacidosis. 2. Fever has resolved. 3. Leukocytosis could be reactive has resolved. 4. Hepatitis C. 5. Acute renal failure 6. Hypernatremia PLAN: 1. We will continue off antibiotics. Subjective ROS Limited/Unobtainable: Yes Constitutional: Denies: fever Allergies: Coded Allergies: No Known Allergies (Unverified , 06/25/14) UNABLE TO ASSESS (Unverified , 12/09/17) Objective Vital Signs Last 24 Hour Vital Signs Date Time Temp Pulse Resp B/P (MAP) Pulse Ox O2 Delivery O2 Flow Rate FiO2 04/05/19 12:00 98.6 84 20 146/67 (93) 97 04/05/19 12:00 84 04/05/19 09:00 Room Air 04/05/19 08:00 98.9 95 18 156/98 (117) 98 04/05/19 08:00 95 04/05/19 04:00 98.0 91 20 138/77 (97) 96 04/05/19 03:35 86 04/05/19 00:00 99.0 95 20 156/80 (105) 96 04/04/19 23:27 102 04/04/19 20:55 98.0 85 20 149/79 (102) 96 04/04/19 20:00 Room Air 04/04/19 16:00 85 04/04/19 16:00 98.6 85 20 145/78 (100) 98 04/04/19 16:00 Room Air Height (Feet): 5 Height (Inches): 6.00 Weight (Pounds): 150 General Appearance: no acute distress HEENT: mucous membranes moist Respiratory/Chest: other - coarse sounds Cardiovascular: normal rate Abdomen: soft, non tender Extremities: no edema Neurologic/Psychiatric: other - sleeping Microbiology Date/Time Source Procedure Growth Status 04/03/19 09:45 Blood Blood Culture - Preliminary NO GROWTH AFTER 24 HOURS Resulted 04/03/19 09:35 Blood Blood Culture - Preliminary NO GROWTH AFTER 24 HOURS Resulted 04/03/19 16:50 Urine,Clean Catch Urine Culture - Preliminary Gram Negative Bacillus 1 Resulted Laboratory Tests Test 04/05/19 06:25 White Blood Count 8.7 K/UL (4.8-10.8) Red Blood Count 3.15 M/UL (4.70-6.10) L Hemoglobin 9.0 G/DL (14.2-18.0) L Hematocrit 29.1 % (42.0-52.0) L Mean Corpuscular Volume 92 FL (80-99) Mean Corpuscular Hemoglobin 28.7 PG (27.0-31.0) Mean Corpuscular Hemoglobin Concent 31.1 G/DL (32.0-36.0) L Red Cell Distribution Width 14.4 % (11.6-14.8) Platelet Count 143 K/UL (150-450) L Mean Platelet Volume 8.1 FL (6.5-10.1) Neutrophils (%) (Auto) 70.8 % (45.0-75.0) Lymphocytes (%) (Auto) 20.4 % (20.0-45.0) Monocytes (%) (Auto) 6.2 % (1.0-10.0) Eosinophils (%) (Auto) 1.8 % (0.0-3.0) Basophils (%) (Auto) 0.8 % (0.0-2.0) Sodium Level 148 MMOL/L (136-145) H Potassium Level 4.9 MMOL/L (3.5-5.1) Chloride Level 117 MMOL/L (98-107) H Carbon Dioxide Level 22 MMOL/L (21-32) Anion Gap 9 mmol/L (5-15) Blood Urea Nitrogen 33 mg/dL (7-18) H Creatinine 1.8 MG/DL (0.55-1.30) H Estimat Glomerular Filtration Rate 46.2 mL/min (>60) Glucose Level 273 MG/DL (74-106) #H Calcium Level 8.3 MG/DL (8.5-10.1) L Phosphorus Level 3.3 MG/DL (2.5-4.9) Iron Level 8 ug/dL (50-175) L Total Iron Binding Capacity 143 ug/dL (250-450) L Percent Iron Saturation 6 % (15-50) L Unsaturated Iron Binding 135 ug/dL (112-346) Ferritin 42 NG/ML (8-388) Vitamin B12 Level 620 PG/ML (193-986) Folate 15.0 NG/ML (8.6-58.9) Current Medications Medications (Trade) Dose Ordered Sig/Canelo Route PRN Reason Start Time Stop Time Status Last Admin Dose Admin Acetaminophen (Tylenol) 650 mg Q4H PRN ORAL Mild Pain/Temp > 100.5 04/02/19 18:30 05/02/19 18:29 04/03/19 15:28 Al Hydroxide/Mg Hydroxide (Mylanta) 30 ml Q4H PRN ORAL digestion 04/02/19 18:15 05/02/19 18:14 Dextrose (Dextrose 50%) 25 ml Q30M PRN IV Hypoglycemia 04/03/19 10:30 05/03/19 10:29 Dextrose (Dextrose 50%) 50 ml Q30M PRN IV Hypoglycemia 04/03/19 10:30 05/03/19 10:29 Insulin Aspart (NovoLOG) BEFORE MEALS AND HS SUBQ 04/03/19 11:30 05/03/19 11:29 04/05/19 11:46 Insulin Detemir (Levemir) 10 units QHS SUBQ 04/03/19 21:00 05/03/19 20:59 04/04/19 22:31 Pantoprazole (Protonix) 40 mg DAILY IVP 04/03/19 09:00 05/03/19 08:59 04/05/19 08:54 Sodium Phosphate 15 mm/Sodium Chloride 1,005 ml @ 150 mls/hr Q6H42M IV 04/04/19 16:00 05/04/19 15:59 04/05/19 12:00 Boston De La Rosa MD Apr 05, 2019 14:23
[2019-04-05 16:00] VITALS: BP 143/67
--- NOTE | 2019-04-05 16:00 | Nephrology Progress Note ---
Assessment/Plan Problem List: (1) Hypophosphatemia (2) Hypernatremia (3) Hepatitis C (4) DKA, type 1 (5) SUDHAKAR (acute kidney injury) (6) History of CVA (cerebrovascular accident) Plan gradually improving, iv adjusted, replace phos Subjective Constitutional: Reports: weakness HEENT: Reports: no symptoms Genitourinary: Reports: no symptoms Neurologic/Psychiatric: Reports: pre-existing deficit Objective Objective Last 24 Hour Vital Signs Date Time Temp Pulse Resp B/P (MAP) Pulse Ox O2 Delivery O2 Flow Rate FiO2 04/05/19 12:00 98.6 84 20 146/67 (93) 97 04/05/19 12:00 84 04/05/19 09:00 Room Air 04/05/19 08:00 98.9 95 18 156/98 (117) 98 04/05/19 08:00 95 04/05/19 04:00 98.0 91 20 138/77 (97) 96 04/05/19 03:35 86 04/05/19 00:00 99.0 95 20 156/80 (105) 96 04/04/19 23:27 102 04/04/19 20:55 98.0 85 20 149/79 (102) 96 04/04/19 20:00 Room Air 04/04/19 16:00 85 04/04/19 16:00 98.6 85 20 145/78 (100) 98 04/04/19 16:00 Room Air Intake and Output 04/04/19 04/05/19 19:00 07:00 Intake Total 840 ml Output Total 1200 ml 1300 ml Balance -360 ml -1300 ml Intake Oral 840 ml Output Urine Total 1200 ml 1300 ml Laboratory Tests 04/05/19 06:25: White Blood Count 8.7, Red Blood Count 3.15L, Hemoglobin 9.0L, Hematocrit 29.1L , Mean Corpuscular Volume 92, Mean Corpuscular Hemoglobin 28.7, Mean Corpuscular Hemoglobin Concent 31.1L, Red Cell Distribution Width 14.4, Platelet Count 143L, Mean Platelet Volume 8.1, Neutrophils (%) (Auto) 70.8, Lymphocytes (%) (Auto) 20.4, Monocytes (%) (Auto) 6.2, Eosinophils (%) (Auto) 1.8, Basophils (%) (Auto) 0.8, Sodium Level 148H, Potassium Level 4.9, Chloride Level 117H, Carbon Dioxide Level 22, Anion Gap 9, Blood Urea Nitrogen 33H, Creatinine 1.8H, Estimat Glomerular Filtration Rate 46.2, Glucose Level 273#H, Calcium Level 8.3L, Phosphorus Level 3.3, Iron Level 8L, Total Iron Binding Capacity 143L, Percent Iron Saturation 6L, Unsaturated Iron Binding 135, Ferritin 42, Vitamin B12 Level 620, Folate 15.0 Height (Feet): 5 Height (Inches): 6.00 Weight (Pounds): 150 General Appearance: no apparent distress EENT: normal ENT inspection Neck: normal alignment Cardiovascular: regular rhythm Respiratory/Chest: lungs clear Abdomen: non tender Extremities: no edema Neurologic: motor weakness Kwan Arreola MD Apr 05, 2019 16:00
--- NOTE | 2019-04-05 18:12 | NUR ---
NURSE NOTES: Notified Dr. Muse that patient's family is requesting patient to be transferred to [facility] in [place]. Received an order for the patient to be transferred. Will carry order out.
--- NOTE | 2019-04-05 19:16 | NUR ---
HAND-OFF: Report given to BOBO Morales.Patient is stable. Endorsed plan of care.
--- NOTE | 2019-04-05 19:17 | NUR ---
Received pt from BOBO Gaspar. Pt is awake and resting in bed in no acute distress. Iv site intact. Bed locked in lowest position, bed alarm on, call light within reach. Will continue with plan of care.
[2019-04-05 20:00] VITALS: BP 125/71
[2019-04-05] MEDS: Levemir Flexpen SUBQ SCH (21:44)
[2019-04-06] VITALS: BP 122/71
[2019-04-06] MEDS: 1/2 NS IV SCH ×3 (00:55→16:48)
[2019-04-06] MEDS: SODIUM PHOSPHATE IV SCH ×3 (00:55→16:48)
[2019-04-06 04:00] VITALS: BP 136/81
[2019-04-06] MEDS: NovoLOG Insulin Flexpen SUBQ SCH ×3 (06:05→16:49)
--- NOTE | 2019-04-06 07:20 | NUR ---
HAND-OFF: Report given to BOBO Rutherford. Pt is awake and resting in bed in no acute distress. Endorsed plan of care.
--- NOTE | 2019-04-06 07:30 | NUR ---
NURSE NOTES: UPON ROUNDS, PT AWAKE ALERT ORIENTED, LEFT FOREARM IV SITE VERY SWOLLEN., IV REMOVED , ELEVATED ARM, MD NOTIFIED AWAITING RESPONSE. WILL MONITOR. Addendum: 04/06/19 at 1108 by CAMPBELL SELLERS RN PER DR PILLO MORE TO DO VENOUS DUPLEX TO RO DVT
[2019-04-06 07:38] LABS: BASOPHILS % (AUTO) 0.8 % (0.0-2.0); EOSINOPHILS % (AUTO) 2.3 % (0.0-3.0); HEMATOCRIT 26.4 % (42.0-52.0); HEMOGLOBIN 8.3 G/DL (14.2-18.0); LYMPHOCYTES % (AUTO) 22.4 % (20.0-45.0); MEAN CORPUSCULAR VOLUME 91 FL (80-99); MONOCYTES % (AUTO) 5.2 % (1.0-10.0); NEUTROPHILS % (AUTO) 69.3 % (45.0-75.0); PHOSPHORUS 3.5 MG/DL (2.5-4.9); PLATELET COUNT 112 K/UL (150-450); RED CELL DISTRIBUTION WIDTH 14.3 % (11.6-14.8); WHITE BLOOD COUNT 7.9 K/UL (4.8-10.8)
[2019-04-06 07:40] LABS: ANION GAP 10 mmol/L (5-15); BLOOD UREA NITROGEN 31 mg/dL (7-18); CALCIUM 7.8 MG/DL (8.5-10.1); CARBON DIOXIDE 20 MMOL/L (21-32); CHLORIDE 114 MMOL/L (98-107); CREATININE 1.8 MG/DL (0.55-1.30); POTASSIUM 4.6 MMOL/L (3.5-5.1); SODIUM 144 MMOL/L (136-145)
[2019-04-06 08:00] VITALS: BP 107/64
[2019-04-06] MEDS: Pantoprazole Inj IVP SCH (08:09)
--- NOTE | 2019-04-06 08:27 | Critical Care Progress Note ---
Assessment/Plan Assessment/Plan IMPRESSION: 1. Diabetic ketoacidosis. resolved 2. Profound hypernatremia. 3. Acute possible chronic renal failure. 4. Profound hyperglycemia. improved 5. Hyperkalemia. 6. History of hypertension. 7. leukocytosis 8. anemia 9. prior CVA with focal weakness PLAN ID evaluation hypotonic fluids per renal; improved overall and may taper monitor lytes and renal parameters close follow up for change renal follow up appreciated DVT prophylaxis family wants transfer to [facility] ?MARAL marques impression, plan, and exam edited and reviewed in detail care discussed with corporate health consultant - Subjective Interval Events: stable family wants transfer to [facility] Condition: improving EKG Rhythm: Sinus Rhythm I&O: Intake and Output 04/05/19 04/06/19 19:00 07:00 Intake Total 140 ml Output Total 2100 ml Balance 140 ml -2100 ml Intake Oral 140 ml Output Urine Total 2100 ml Critical Care - Objective Last 24 Hour Vital Signs Date Time Temp Pulse Resp B/P (MAP) Pulse Ox O2 Delivery O2 Flow Rate FiO2 04/06/19 04:00 97.7 91 20 136/81 (99) 96 04/06/19 04:00 91 04/06/19 00:00 97.6 86 20 122/71 (88) 97 04/05/19 21:00 Room Air 04/05/19 20:00 90 04/05/19 20:00 98.0 90 20 125/71 (89) 98 04/05/19 16:00 72 04/05/19 16:00 98.1 80 20 143/67 (92) 100 04/05/19 12:00 98.6 84 20 146/67 (93) 97 04/05/19 12:00 84 04/05/19 09:00 Room Air Labs: Labs Test 04/03/19 16:55 04/04/19 04:55 04/05/19 06:25 04/06/19 06:32 Sodium Level 156 MMOL/L (136-145) 154 MMOL/L (136-145) 148 MMOL/L (136-145) 144 MMOL/L (136-145) Potassium Level 4.9 MMOL/L (3.5-5.1) 5.0 MMOL/L (3.5-5.1) 4.9 MMOL/L (3.5-5.1) 4.6 MMOL/L (3.5-5.1) Chloride Level 123 MMOL/L (98-107) 125 MMOL/L (98-107) 117 MMOL/L (98-107) 114 MMOL/L (98-107) Carbon Dioxide Level 24 MMOL/L (21-32) 20 MMOL/L (21-32) 22 MMOL/L (21-32) 20 MMOL/L (21-32) Anion Gap 9 mmol/L (5-15) 9 mmol/L (5-15) 9 mmol/L (5-15) 10 mmol/L (5-15) Blood Urea Nitrogen 84 mg/dL (7-18) 53 mg/dL (7-18) 33 mg/dL (7-18) 31 mg/dL (7-18) Creatinine 2.3 MG/DL (0.55-1.30) 1.9 MG/DL (0.55-1.30) 1.8 MG/DL (0.55-1.30) 1.8 MG/DL (0.55-1.30) Estimat Glomerular Filtration Rate 34.8 mL/min (>60) 43.4 mL/min (>60) 46.2 mL/min (>60) 46.2 mL/min (>60) Glucose Level 429 MG/DL (74-106) 133 MG/DL (74-106) 273 MG/DL (74-106) 299 MG/DL (74-106) Calcium Level 8.0 MG/DL (8.5-10.1) 8.2 MG/DL (8.5-10.1) 8.3 MG/DL (8.5-10.1) 7.8 MG/DL (8.5-10.1) White Blood Count 11.4 K/UL (4.8-10.8) 8.7 K/UL (4.8-10.8) 7.9 K/UL (4.8-10.8) Red Blood Count 2.91 M/UL (4.70-6.10) 3.15 M/UL (4.70-6.10) 2.90 M/UL (4.70-6.10) Hemoglobin 8.4 G/DL (14.2-18.0) 9.0 G/DL (14.2-18.0) 8.3 G/DL (14.2-18.0) Hematocrit 26.8 % (42.0-52.0) 29.1 % (42.0-52.0) 26.4 % (42.0-52.0) Mean Corpuscular Volume 92 FL (80-99) 92 FL (80-99) 91 FL (80-99) Mean Corpuscular Hemoglobin 28.9 PG (27.0-31.0) 28.7 PG (27.0-31.0) 28.7 PG (27.0-31.0) Mean Corpuscular Hemoglobin Concent 31.4 G/DL (32.0-36.0) 31.1 G/DL (32.0-36.0) 31.6 G/DL (32.0-36.0) Red Cell Distribution Width 15.1 % (11.6-14.8) 14.4 % (11.6-14.8) 14.3 % (11.6-14.8) Platelet Count 156 K/UL (150-450) 143 K/UL (150-450) 112 K/UL (150-450) Mean Platelet Volume 7.9 FL (6.5-10.1) 8.1 FL (6.5-10.1) 7.7 FL (6.5-10.1) Neutrophils (%) (Auto) 70.6 % (45.0-75.0) 70.8 % (45.0-75.0) 69.3 % (45.0-75.0) Lymphocytes (%) (Auto) 20.8 % (20.0-45.0) 20.4 % (20.0-45.0) 22.4 % (20.0-45.0) Monocytes (%) (Auto) 6.3 % (1.0-10.0) 6.2 % (1.0-10.0) 5.2 % (1.0-10.0) Eosinophils (%) (Auto) 1.4 % (0.0-3.0) 1.8 % (0.0-3.0) 2.3 % (0.0-3.0) Basophils (%) (Auto) 0.9 % (0.0-2.0) 0.8 % (0.0-2.0) 0.8 % (0.0-2.0) Phosphorus Level 1.7 MG/DL (2.5-4.9) 3.3 MG/DL (2.5-4.9) 3.5 MG/DL (2.5-4.9) Magnesium Level 2.2 MG/DL (1.8-2.4) 1.4 MG/DL (1.8-2.4) Iron Level 8 ug/dL (50-175) Total Iron Binding Capacity 143 ug/dL (250-450) Percent Iron Saturation 6 % (15-50) Unsaturated Iron Binding 135 ug/dL (112-346) Ferritin 42 NG/ML (8-388) Vitamin B12 Level 620 PG/ML (193-986) Folate 15.0 NG/ML (8.6-58.9) Objective: GENERAL: NAD; in bed HEENT: Fairly negative. Extraocular movements are grossly intact. Oropharynx is moist. No thrush. NECK: Supple. No adenopathy. No jugular venous distention. LUNGS: Fairly clear and symmetric. No rhonchi or wheezes. CARDIAC: S1, S2. Regular rate and rhythm without murmurs, rubs, or gallops. ABDOMEN: Soft, nontender, and nondistended. EXTREMITIES: No cyanosis, clubbing, or edema. NEUROLOGIC: focal weakness; dysarthric SKIN: noted reviewed and edited Micro: Microbiology Date/Time Source Procedure Growth Status 04/03/19 09:45 Blood Blood Culture - Preliminary NO GROWTH AFTER 48 HOURS Resulted 04/03/19 09:35 Blood Blood Culture - Preliminary NO GROWTH AFTER 48 HOURS Resulted 04/03/19 16:50 Urine,Clean Catch Urine Culture - Final Escherichia Coli Complete Accucheck: 268 Jadon Muse MD Apr 06, 2019 08:27
--- NOTE | 2019-04-06 09:07 | NUR ---
DISCHARGE PLANNING CLINICALS FAXED TO [facility]
[2019-04-06 12:00] VITALS: BP 120/75
--- NOTE | 2019-04-06 12:36 | Nephrology Progress Note ---
Assessment/Plan Problem List: (1) Hypophosphatemia (2) Hypernatremia (3) Hepatitis C (4) DKA, type 1 (5) SUDHAKAR (acute kidney injury) (6) History of CVA (cerebrovascular accident) Plan gradually improving, iv adjusted, replace phos+mg Subjective HEENT: Reports: no symptoms Neurologic/Psychiatric: Reports: pre-existing deficit Objective Objective Last 24 Hour Vital Signs Date Time Temp Pulse Resp B/P (MAP) Pulse Ox O2 Delivery O2 Flow Rate FiO2 04/06/19 12:00 97.0 85 20 120/75 (90) 96 04/06/19 09:00 Room Air 04/06/19 08:00 97.7 91 20 107/64 (78) 96 04/06/19 07:44 100 04/06/19 04:00 97.7 91 20 136/81 (99) 96 04/06/19 04:00 91 04/06/19 00:00 97.6 86 20 122/71 (88) 97 04/05/19 21:00 Room Air 04/05/19 20:00 90 04/05/19 20:00 98.0 90 20 125/71 (89) 98 04/05/19 16:00 72 04/05/19 16:00 98.1 80 20 143/67 (92) 100 Intake and Output 04/05/19 04/06/19 19:00 07:00 Intake Total 140 ml 140 ml Output Total 2100 ml Balance 140 ml -1960 ml Intake Oral 140 ml 140 ml Output Urine Total 2100 ml Laboratory Tests 04/06/19 06:32: White Blood Count 7.9, Red Blood Count 2.90L, Hemoglobin 8.3L, Hematocrit 26.4L , Mean Corpuscular Volume 91, Mean Corpuscular Hemoglobin 28.7, Mean Corpuscular Hemoglobin Concent 31.6L, Red Cell Distribution Width 14.3, Platelet Count 112L, Mean Platelet Volume 7.7, Neutrophils (%) (Auto) 69.3, Lymphocytes (%) (Auto) 22.4, Monocytes (%) (Auto) 5.2, Eosinophils (%) (Auto) 2.3, Basophils (%) (Auto) 0.8, Sodium Level 144, Potassium Level 4.6, Chloride Level 114H, Carbon Dioxide Level 20L, Anion Gap 10, Blood Urea Nitrogen 31H, Creatinine 1.8H, Estimat Glomerular Filtration Rate 46.2, Glucose Level 299H, Calcium Level 7.8L, Phosphorus Level 3.5, Magnesium Level 1.4L Height (Feet): 5 Height (Inches): 6.00 Weight (Pounds): 150 General Appearance: no apparent distress, alert EENT: normal ENT inspection Neck: normal alignment Cardiovascular: regular rhythm Respiratory/Chest: lungs clear Abdomen: non tender Extremities: no edema Neurologic: motor weakness Kwan Arreola MD Apr 06, 2019 12:36
[2019-04-06] MEDS ORDERED: Bisacodyl EC 5mg tab ORAL PRN (13:15)
[2019-04-06] MEDS ORDERED: Fleet's Enema 133ml RECTAL PRN (13:15)
--- NOTE | 2019-04-06 14:06 | Diagnostic Imaging Report ---
Indication: Left arm edema Technique: Grayscale and duplex images of left upper extremity veins Comparison: none Findings: On the left, grayscale and duplex images demonstrate no evidence of intraluminal thrombus. Normal phasic Doppler waveforms. Normal compressibility. Note, however, that the cephalic vein is very poorly visualized. There is edema of the subcutaneous fat. Impression: Negative for evidence of left upper extremity venous thrombosis Note poor visualization of the cephalic vein, however
--- NOTE | 2019-04-06 14:15 | NUR ---
NURSE NOTES: report given to [facility]lisa , to august
--- NOTE | 2019-04-06 14:28 | Infectious Diseases Prog Note ---
Assessment/Plan Assessment/Plan A; 1. Diabetic ketoacidosis. 2. Fever has resolved. 3. Leukocytosis could be reactive has resolved. 4. Hepatitis C. 5. Acute renal failure 6. Hypernatremia 7. asymptomatic bacteruria PLAN: 1. We will continue off antibiotics. Subjective ROS Limited/Unobtainable: No Constitutional: Reports: no symptoms Respiratory: Reports: no symptoms Cardiovascular: Reports: no symptoms Gastrointestinal/Abdominal: Reports: no symptoms Genitourinary: Reports: no symptoms Allergies: Coded Allergies: No Known Allergies (Unverified , 06/25/14) UNABLE TO ASSESS (Unverified , 12/09/17) Objective Vital Signs Last 24 Hour Vital Signs Date Time Temp Pulse Resp B/P (MAP) Pulse Ox O2 Delivery O2 Flow Rate FiO2 04/06/19 12:00 97.0 85 20 120/75 (90) 96 04/06/19 09:00 Room Air 04/06/19 08:00 97.7 91 20 107/64 (78) 96 04/06/19 07:44 100 04/06/19 04:00 97.7 91 20 136/81 (99) 96 04/06/19 04:00 91 04/06/19 00:00 97.6 86 20 122/71 (88) 97 04/05/19 21:00 Room Air 04/05/19 20:00 90 04/05/19 20:00 98.0 90 20 125/71 (89) 98 04/05/19 16:00 72 04/05/19 16:00 98.1 80 20 143/67 (92) 100 Height (Feet): 5 Height (Inches): 6.00 Weight (Pounds): 150 General Appearance: no acute distress HEENT: mucous membranes moist Respiratory/Chest: lungs clear Cardiovascular: normal rate Abdomen: soft, non tender Genitourinary: other - condom catheter Extremities: no edema Neurologic/Psychiatric: alert, responsive Microbiology Date/Time Source Procedure Growth Status 04/03/19 16:50 Urine,Clean Catch Urine Culture - Final Escherichia Coli Complete Laboratory Tests Test 04/06/19 06:32 White Blood Count 7.9 K/UL (4.8-10.8) Red Blood Count 2.90 M/UL (4.70-6.10) L Hemoglobin 8.3 G/DL (14.2-18.0) L Hematocrit 26.4 % (42.0-52.0) L Mean Corpuscular Volume 91 FL (80-99) Mean Corpuscular Hemoglobin 28.7 PG (27.0-31.0) Mean Corpuscular Hemoglobin Concent 31.6 G/DL (32.0-36.0) L Red Cell Distribution Width 14.3 % (11.6-14.8) Platelet Count 112 K/UL (150-450) L Mean Platelet Volume 7.7 FL (6.5-10.1) Neutrophils (%) (Auto) 69.3 % (45.0-75.0) Lymphocytes (%) (Auto) 22.4 % (20.0-45.0) Monocytes (%) (Auto) 5.2 % (1.0-10.0) Eosinophils (%) (Auto) 2.3 % (0.0-3.0) Basophils (%) (Auto) 0.8 % (0.0-2.0) Sodium Level 144 MMOL/L (136-145) Potassium Level 4.6 MMOL/L (3.5-5.1) Chloride Level 114 MMOL/L (98-107) H Carbon Dioxide Level 20 MMOL/L (21-32) L Anion Gap 10 mmol/L (5-15) Blood Urea Nitrogen 31 mg/dL (7-18) H Creatinine 1.8 MG/DL (0.55-1.30) H Estimat Glomerular Filtration Rate 46.2 mL/min (>60) Glucose Level 299 MG/DL (74-106) H Calcium Level 7.8 MG/DL (8.5-10.1) L Phosphorus Level 3.5 MG/DL (2.5-4.9) Magnesium Level 1.4 MG/DL (1.8-2.4) L Current Medications Medications (Trade) Dose Ordered Sig/Canelo Route PRN Reason Start Time Stop Time Status Last Admin Dose Admin Acetaminophen (Tylenol) 650 mg Q4H PRN ORAL Mild Pain/Temp > 100.5 04/02/19 18:30 05/02/19 18:29 04/03/19 15:28 Al Hydroxide/Mg Hydroxide (Mylanta) 30 ml Q4H PRN ORAL digestion 04/02/19 18:15 05/02/19 18:14 Bisacodyl (Dulcolax) 5 mg DAILYPRN PRN ORAL Constipation 04/06/19 13:15 05/06/19 13:14 04/06/19 14:17 Dextrose (Dextrose 50%) 25 ml Q30M PRN IV Hypoglycemia 04/03/19 10:30 05/03/19 10:29 Dextrose (Dextrose 50%) 50 ml Q30M PRN IV Hypoglycemia 04/03/19 10:30 05/03/19 10:29 Insulin Aspart (NovoLOG) BEFORE MEALS AND HS SUBQ 04/03/19 11:30 05/03/19 11:29 04/06/19 11:40 Insulin Detemir (Levemir) 20 units QHS SUBQ 04/06/19 21:00 05/06/19 20:59 Magnesium Sulfate 100 ml @ 100 mls/hr Q1H IVPB 04/06/19 13:30 04/06/19 16:29 04/06/19 13:43 Pantoprazole (Protonix) 40 mg DAILY IVP 04/03/19 09:00 05/03/19 08:59 04/06/19 08:09 Sodium Phosphate (Fleet's Sodium Phosl Enema) 133 ml DAILYPRN PRN RECTAL CONSTIPATION 04/06/19 13:15 05/06/19 13:14 Sodium Phosphate 15 mm/Sodium Chloride 1,005 ml @ 125 mls/hr Q8H3M IV 04/05/19 16:00 05/05/19 15:59 04/06/19 08:10 Boston De La Rosa MD Apr 06, 2019 14:28
[2019-04-06 16:00] VITALS: BP 130/80
--- NOTE | 2019-04-06 16:58 | NUR ---
P.T. NOTES ADDENDUM S/P: APPROACHED PATIENT'S ROOM IN THE PM. RN PRESENT. AND STATED, TO HOLD P.T.TX. , SECONDARY TO NSG PROCEDURE, AND RN ADDED PATIENT WILL BE GOING TO BE TRANSFERRED TO REHAB. FACILITY TODAY. WILL F/U. RSAJAREDO.
--- NOTE | 2019-04-06 19:15 | NUR ---
HAND-OFF: Report given to SCOTT BROUSSARD.
--- NOTE | 2019-04-06 19:46 | NUR ---
NURSE NOTES: Received pt from [facility]. Pt asleep and awaiting d/c. Bed in lowest position. Call light within reach. Will continue to monitor.
--- NOTE | 2019-04-06 20:11 | NUR ---
HAND-OFF: Report given to Ambulance personnel. Pt belongings given to pt. IV site removed.
[2019-04-06] MEDS ORDERED: Levemir Flexpen SUBQ SCH ×2 (21:00)
--- NOTE | 2019-04-08 14:36 | Discharge Summary ---
Discharge Summary Discharge Summary _ DATE OF ADMISSION: 04/02/2019 DATE OF DISCHARGE: 04/06/2019 DISCHARGED BY: Dr. Minna Muse CONSULTANTS: Dr. Regina Arreola BRIEF HOSPITAL COURSE: The patient is a 63-year-old male who apparently ran out of insulin. He has longstanding history of diabetes and prior CVA. Has not taken insulin for 2 days and was not able to tolerate food. The patient presented with diabetic ketoacidosis. Glucose 688, anion gap 15, carbon dioxide 27, lactic acid 2.4. Sodium was 152, potassium 5.9. Creatinine 4.2. He was somewhat lethargic, initially somewhat tachypneic. The patient presented with evidence of severe renal failure, unclear as to underlying chronic kidney disease at present. The patient denied fever and chills. Patient was started on insulin drip and was admitted to ICU. He was given IV hydration. Acidosis resolved. Insulin drip was discontinued. He was placed on long-acting insulin and sliding scale. Venous duplex LE was negative for acute DVT. Staff Nurse Midwife was consulted. Acute kidney injury likely from dehydration. Hyponatremia possible secondary to dehydration. Patient had fever. ID was consulted for possible pneumonia. He was observed off antibiotics. Leukocytosis and fever resolved. Blood culture did not isolate any growth. Urine culture with low colony count of E. coli. Blood glucose with better control. Kidney function down trended. He was eventually cleared for discharge home. FINAL DIAGNOSES: Diabetic ketoacidosis, resolved Hyponatremia Acute renal failure Profound hyperglycemia, improved Hyperkalemia Hypertension Anemia Prior CVA with focal weakness Hypophosphatemia Hepatitis C Asymptomatic bacteriuria DISPOSITION: Patient was discharged home. DISCHARGE INSTRUCTIONS: Follow-up in a week. I have been assigned to complete a discharge summary on this account, I was not involved with the patient's management.--IESHA Jaeger Jacqueline Robles NP Apr 08, 2019 14:36
== END 2019-04-06 18:05 | DRG 637 ==
LOC: EDBD 09:03 → EMR 09:28 → ICU 11:54 → EDBEDREQ 14:40 → 2E 04-04 07:14
DX: E11.10 Type 2 diabetes mellitus with ketoacidosis without coma (principal); G92 Toxic encephalopathy; N17.9 Acute kidney failure, unspecified; E44.0 Moderate protein-calorie malnutrition; E87.1 Hypo-osmolality and hyponatremia; I12.9 Hypertensive chronic kidney disease with stage 1 through stage 4 chronic kidney disease, or unspecified chronic kidney disease; E11.22 Type 2 diabetes mellitus with diabetic chronic kidney disease; N18.9 Chronic kidney disease, unspecified; Z86.73 Personal history of transient ischemic attack (TIA), and cerebral infarction without residual deficits; R47.1 Dysarthria and anarthria; D64.9 Anemia, unspecified; I69.398 Other sequelae of cerebral infarction; Z86.19 Personal history of other infectious and parasitic diseases; F17.200 Nicotine dependence, unspecified, uncomplicated; Z91.14 Patient's other noncompliance with medication regimen; E83.39 Other disorders of phosphorus metabolism; E87.6 Hypokalemia
CPT/HCPCS: 36415; 36600; 71045; 80048; 80053; 81003; 82009; 82570; 82607; 82728; 82746; 82803; 82962; 83036; 83540; 83550; 83605; 83735; 83930; 84100; 84300; 84484; 85025; 87040; 87081; 87086; 87181; 93005; 93931; 93970; 96360; 99291; J1815; S5561